=== PATIENT | female | born 1990 | race Caucasian/White ===

== ENCOUNTER → 2020-05-03 11:49 | Outpatient (BNVA) | payer MEDICAID, SELFPAY | PROVIDERS: Family Provider Nurse Practitioner Family; PCP Registered Nurse; Visit Provider Nurse Practitioner Psychiatric/Mental Health | DX: F41.1 Generalized anxiety disorder (principal); F41.0 Panic disorder [episodic paroxysmal anxiety]; F60.3 Borderline personality disorder; Z79.899 Other long term (current) drug therapy | CPT/HCPCS: 99214; 80307 ==

== ENCOUNTER 2024-10-21 20:55 | Inpatient (IN) | payer MEDICAID, SELFPAY ==
[2024-10-21 20:57] VITALS: BP 134/85; PULSE 92; RESP 18; TEMP 37; O2SAT 99; BMI 33.6
--- OUTSIDE RECORDS SUMMARY | 2024-10-21 21:01 | XMS_ITS | Encounter Summary ---
Author Organization [facility] Address [address] [place] [address] Care Team Providers Care Thread Spinner Name Role Phone Geraldo Giles MD Primary Care Provider Encounter Details Date Type Department Care Team (Latest Contact Info) Description 03/20/2005 Outpatient Historical [address] [place], [place] [phone] Fran Sapp MD [address] [place] [address] [phone] DRUG ABUSE NEC-UNSPEC (CMS/FORMERLY [facility]) (Primary Dx) Social History Tobacco Use Types Packs/Day Years Used Date Smoking Tobacco: Never Assessed Comments Unknown Sex and Gender Information Value Date Recorded Sex Assigned at Not on file Legal 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 Gender Identity Not on file Sexual Orientation Not on file documented as of this encounter Plan of Treatment Not on file documented as of this encounter Procedures Procedure Name Priority Date/Time Associated Diagnosis Comments DRUG SCREEN, URINE Routine 03/20/2005 10 :36 AM SUPERVISOR SILVERING DEPARTMENT documented in this encounter Results * DRUG SCREEN, URINE (03/20/2005 10:36 AM SUPERVISOR SILVERING DEPARTMENT) OPIATE QUAL, URINE Drug Negative Drug Negative INTERFACE SYSTEM AMPHETAMINE QUAL, URINE Drug Negative Drug Negative INTERFACE SYSTEM BARBITURATE QUAL, URINE Drug Negative Drug Negative INTERFACE SYSTEM COCAINE QUAL URINE Drug Negative Drug Negative INTERFACE SYSTEM PCP QUAL, URINE Drug Negative Drug Negative INTERFACE SYSTEM CANNABINOIDS QUAL, URINE Drug Negative Drug Negative INTERFACE SYSTEM BENZODIAZEPINE QUAL, URINE Drug Negative Drug Negative INTERFACE SYSTEM 03/20/2005 10:3 6 AM SUPERVISOR SILVERING DEPARTMENT us Historical Provider URINE ORDERABLES Final Resul t INTERFACE SYSTEM Refer to clinic/hospital department documented in this encounter Visit Diagnoses Diagnosis Other, mixed, or unspecified nondependent drug abuse, unspecified- Primary documented in this encounter Care Teams Thread Spinner Relationship Specialty Start Date End Date Geraldo Giles MD [address] [address] PCP - General Family Practice 03/22/18 documented as of this encounter
--- OUTSIDE RECORDS SUMMARY | 2024-10-21 21:01 | XMS_ITS | Encounter Summary ---
Author Organization [facility] Address [address] [place] [address] Care Team Providers Care Radioisotope Production Operator Name Role Phone Geraldo Giles MD Primary Care Provider [phone] Encounter Details Date Type Department Care Team (Latest Contact Info) Description 09/22/2004 Outpatient Historical [facility] [place] [address] [place] [address] [phone] Lourdes Guallpa, [facility] [address] [place] [address] [phone] ROUTINE PASTORAL ASSISTANT EXAMINATION (Primary Dx) Social History Tobacco Use Types Packs/Day Years Used Date Smoking Tobacco: Never Assessed Comments Unknown Sex and Gender Information Value Date Recorded Sex Assigned at Not on file 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
--- OUTSIDE RECORDS SUMMARY | 2024-10-21 21:01 | XMS_ITS | Encounter Summary ---
Author Organization [facility] Address [address] [place] [address] Care Team Providers Care School Year Nanny Name Role Phone Geraldo Giles MD Primary Care Provider Encounter Details Date Type Department Care Team (Latest Contact Info) Description 11/06/2005 Outpatient Historical [facility] Operating Room [address] [place] [address] Jack Hernandez MD [address] [address] Encounters for Unspecified Administrative Purpose (Primary Dx) Social History Tobacco Use Types Packs/Day Years Used Date Smoking Tobacco: Never Assessed Comments Unknown Sex and Gender Information Value Date Recorded Sex Assigned at Not on file Legal Sex Female 

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
--- OUTSIDE RECORDS SUMMARY | 2024-10-21 21:01 | XMS_ITS | Encounter Summary ---
Author Organization [facility] Address [address] [place] [address] Care Team Providers Care Engine Turner Name Role Phone Geraldo Giles MD Primary Care Provider [phone] Encounter Details Date Type Department Care Team (Latest Contact Info) Description 04/26/2005 Outpatient Historical [facility] [address] [place] [phone] Fran Sapp MD [address] [place] [phone] ACUTE BRONCHITIS (Primary Dx); NONINFEC GASTROENTERIT NEC Social History Tobacco Use Types Packs/Day Years Used Date Smoking Tobacco: Never Assessed Comments Unknown Sex and Gender Information Value Date Recorded Sex Assigned at Not on file 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
--- OUTSIDE RECORDS SUMMARY | 2024-10-21 21:01 | XMS_ITS | Encounter Summary ---
Author Organization [facility] Address [address] [place] [address] Care Team Providers Care Automobile Rental Representative Name Role Phone Geraldo Giles MD Primary Care Provider Encounter Details Date Type Department Care Team (Latest Contact Info) Description 04/17/2005 Outpatient Historical [facility] [address] [place] [phone] Fran Sapp MD [address] [place] [address] [phone] NONINFLAM DIS VAGINA NEC (Primary Dx); HORDEOLUM EXTERNUM Social History Tobacco Use Types Packs/Day Years Used Date Smoking Tobacco: Never Assessed Comments Unknown Sex and Gender Information Value Date Recorded Sex Assigned at Not on file Legal 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
--- OUTSIDE RECORDS SUMMARY | 2024-10-21 21:01 | XMS_ITS | Encounter Summary ---
Author Organization [facility] Address [address] [place] [address] Care Team Providers Care Television Camera Operator Name Role Phone Geraldo Giles MD Primary Care Provider Encounter Details Date Type Department Care Team (Late st Contact Info) Description 12/03/2005 Outpatient Historical [facility] General and Trauma Surgery-[address] [place] [phone] Kimani Almodovar MD [address] [phone] Follow-Up Examination, Following Unspecified Surgery (Primary Dx) Social History Tobacco Use Types Packs/Day Years Used Date Smoking Tobacco: Never Assessed Comments Unknown Sex and Gender Information Value Date Recorded Sex Assigned at Not on file Legal Sex Female 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
--- OUTSIDE RECORDS SUMMARY | 2024-10-21 21:01 | XMS_ITS | Encounter Summary ---
Author Organization [facility] Address [address] [place] [address] Care Team Providers Care Electrical Prospecting Engineer Name Role Phone Geraldo Giles MD Primary Care Provider Encounter Details Date Type Department Care Team (Latest Contact Info) Description 08/21/2004 Outpatient Historical [facility] [address] [place] [address] [phone] Fran Sapp MD [address] [place] [address] [phone] SCOLIOSIS NEC (Primary Dx); VAGINITIS NOS Social History Tobacco Use Types Packs/Day Years Used Date Smoking Tobacco: Never Assessed Comments Unknown Sex and Gender Information Value Date Recorded Sex Assigned at Not on file Legal 

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
--- OUTSIDE RECORDS SUMMARY | 2024-10-21 21:01 | XMS_ITS | Encounter Summary ---
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 Gender Identity Not on file Sexual Orientation Not on file documented as of this encounter Plan of Treatment Not on file documented as of this encounter Procedures Procedure Name Priority Date/Time Associated Diagnosis Comments URINALYSIS W/REFLEX MICROSCOPIC Routine 11/04/2005 10:09 PM CDT CBC WITH DIFFERENTIAL Routine 11/04/2005 9:35 AM CDT VITAMIN B12 LEVEL Routine 11/04/2005 9:3 5 AM CDT HEPATIC FUNCTION PANEL Routine 6 9:35 AM CDT CBC WITH DIFFERENTIAL Routine 10/31/2005 7:02 AM CDT TSH Routine 10/31/2005 7:02 AM CDT COMPREHENSIVE METABOLIC PANEL Routine 10/31/2005 7:02 AM CDT documented in this encounter Results * (ABNORMAL) URINALYSIS (11/04/2005 10:09 PM CDT) Pathologist [facility] MICRO EXAM No No INTERFACE SYSTEM COLOR UA Yellow Straw INTERFACE SYSTEM CLARITY UA Clear Clear INTERFACE SYSTEM LEUKOCYTE ESTERASE UA NEGATIVE NEGATIVE INTERFACE SYSTEM NITRITE UA NEGATIVE NEGATIVE INTERFACE SYSTEM PH UA 6.5 5.0 - 9.0 INTERFACE SYSTEM PROTEIN UA NEGATIVE NEGATIVE INTERFACE SYSTEM Comment: As of 04 positive protein results obtained on routine urinalysis will not be confirmed by sulfosalicylic acid (SSA) precipitation. Current methodology for protein detection is highly sensitive for detection of albumin; therefore, confirmation is not necessary. GLUCOSE UA NEGATIVE NEGATIVE INTERFACE SYSTEM KETONES UA NEGATIVE NEGATIVE INTERFACE SYSTEM UROBILINOGEN UA 0.2 0.2 INTE RFACE SYSTEM BILIRUBIN UA NEGATIVE NEGATIVE INTERFA CE SYSTEM BLOOD UA NEGATIVE NEGATIVE INTERFACE SYSTEM SPECIFIC GRAVITY UA >=1.030(A) 1.005 - 1.030 INTERFACE SYSTEM 11/04/2005 10:0 9 PM CDT Geraldo Cantu MD URINE ORDERABLES Final Result INTERFACE SYSTEM Refer to clinic/hospital department * (ABNORMAL) HEPATIC FUNCTION PANEL (11/04/2005 9:35 AM CDT) Pathologist [facility] TOTAL PROTEIN 7.0 6.3 - 8.2 g/dL INTERFACE SYSTEM ALBUMIN 4.0 3.5 - 5.0 g/dL INTERFACE SYSTEM ALKALINE PHOSPHATASE 792(H) 39 - 126 U/L INTERFACE SYSTEM Comment: As of 05 the [facility] has changed testing methods. The new reference range is 25-100 The old referance range was 38-126 AST 27 8 - 33 U/L INTERFACE SYSTEM Comment: As of 05 the [facility] has changed testing methods. The new reference range is 8-33 The old referance range was Males 17-59 Females 14-36 ALT 31 4 - 36 IU/L INTERFACE SYSTEM Comment: As of 05 the [facility] has changed testing methods. The new reference range is 4-36 The old referance range was Males 21-72 Females 9-52 BILIRUBIN DIRECT 0.3 0.0 - 0.4 mg/dL INTERFACE SYSTEM BILIRUBIN TOTAL 1.0 0.3 - 1.2 mg/dL INTERFACE SYSTEM Comment: As of 05 the [facility] has changed testing methods. The new reference range is 0.3-1.2 The old referance range was 0.2-1.4 11/04/2005 9:35 AM CDT Pop Hicks MD CHEMISTRY ORDERABLES Final Resu Performing Organization Address [facility] Phone Number INTERFACE SYSTEM Refer to clinic/hospital department * VITAMIN B12 (11/04/2005 9:35 AM CDT) Pathologist [facility] VITAMIN B12 640 211 - 911 pg/dL INTERFACE SYSTEM 11/04/2005 9:35 AM CDT Pop Hicks MD CHEMISTRY ORDERABLES Final Resu lt Performing Organization Address [facility] Phone Number INTERFACE SYSTEM Refer to clinic/hospital department * (ABNORMAL) CBC WITH DIFFERENTIAL (11/04/2005 9:35 AM CDT) Pathologist [facility] WBC 7.0 4.5 - 13.5 K/ul INTERFACE SYSTEM RBC 3.87(L) 4.30 - 5.30 Mil/ul INTERFACE SYSTEM HEMOGLOBIN 11.5(L) 12.0 - 16.0 g/dL INTERFACE SYSTEM HEMATOCRIT 36.1 36.0 - 46.0 % INTERFACE SYSTEM MCV 93.3 78.0 - 102.0 Fl INTERFACE SYSTEM MCH 29.7 26.0 - 32.0 pg INTERFACE SYSTEM MCHC 31.9(L) 33.0 - 35.0 g/dL INTERFACE SYSTEM RDW 16.3(H) 11.0 - 14.5 % INTERFACE SYSTEM PLATELETS 648(H) 140 - 440 K/ul INTERFACE SYSTEM MPV 9.1 8.9 - 12.8 Fl INTERFACE SYSTEM NEUTROPHILS 58.6 42.2 - 75.2 % INTERFACE SYSTEM LYMPHOCYTES 31.9 24.0 - 44.0 % INTERFACE SYSTEM MONOCYTES 8.0(H) 4.0 - 5.0 % INTERFACE SYSTEM EOSINOPHILS 1.1 0.0 - 7.0 % INTERFACE SYSTEM BASOPHILS 0.4 0.0 - 1.0 % INTERFACE SYSTEM NEUTROPHIL ABSOLUTE 4.1 2.0 - 8.0 K/uL INTERFACE SYSTEM LYMPHOCYTE ABSOLUTE 2.2 1.2 - 4.0 K/ul INTERFACE SYSTEM MONOCYTE ABSOLUTE 0.6 0.1 - 0.6 K/ul INTERFACE SYSTEM EOSINOPHIL ABSOLUTE 0.1 0.0 - 0.7 K/ul INTERFACE SYSTEM BASOPHILS ABSOLUTE 0.0 0.0 - 0.2 K/ul INTERFACE SYSTEM 11/04/2005 9:35 AM CDT us Pop Hicks MD HEMATOLOGY ORDERABLES Final Res ult Performing Organization Address [facility] de Phone Number INTERFACE SYSTEM Refer to clinic/hospital department * TSH (10/31/2005 7:02 AM CDT) TSH 1.230 0.350 - 5.500 uIU/ml INTERFACE SYSTEM Comment: As of 04 at 3:00 p.m. [facility] has changed the methodology for TSH, and with this change the reference range has changed from 0.49-4.67 to 0.35-5.5 uIU/ml. 10/31/2005 7:02 AM CDT us Pop Hicks MD CHEMISTRY ORDERABLES Final Resu lt Performing Organization Address [facility] Phone Number INTERFACE SYSTEM Refer to clinic/hospital department * (ABNORMAL) COMPREHENSIVE METABOLIC PANEL (10/31/2005 7:02 AM CDT) GLUCOSE 100 70 - 110 mg/dL INTERFACE SYSTEM BUN 12 7 - 17 mg/dL INTERFACE SYSTEM CREATININE 0.6(L) 0.7 - 1.2 mg/dL INTERFACE SYSTEM SODIUM 139 136 - 145 mEq/L INTERFACE SYSTEM POTASSIUM 3.4(L) 3.5 - 5.0 mEq/L INTERFACE SYSTEM CHLORIDE 107 95 - 110 mEq/L INTERFACE SYSTEM CO2 21(L) 22 - 32 mmol/l INTERFACE SYSTEM ANION GAP 14 9 - 20 mEq/L INTERFACE SYSTEM OSMOLALITY, CALCULATED 285 275 - 295 mOsm/Kg INTERFACE SYSTEM CALCIUM 8.9 8.4 - 10.5 mg/dL INTERFACE SYSTEM TOTAL PROTEIN 6.4 6.3 - 8.2 g/dL INTERFACE SYSTEM ALBUMIN 3.6 3.5 - 5.0 g/dL INTERFACE SYSTEM GLOBULIN (CALC) 2.8 2.4 - 3.9 g/dL INTERFACE SYSTEM ALBUMIN/GLOBULIN RATIO 1.3 1.0 - 2.3 INTERFACE SYSTEM ALKALINE PHOSPHATASE 343(H) 39 - 126 U/L INTERFACE SYSTEM Comment: As of 05 the [facility] has changed testing methods. The new reference range is 25-100 The old referance range was 38-126 AST 26 8 - 33 U/L INTERFACE SYSTEM Comment: As of 05 the [facility] has changed testing methods. The new reference range is 8-33 The old referance range was Males 17-59 Females 14-36 ALT 39(H) 4 - 36 IU/L INTERFACE SYSTEM Comment: As of 05 the [facility] has changed testing methods. The new reference range is 4-36 The old referance range was Males 21-72 Females 9-52 BILIRUBIN TOTAL 1.1 0.3 - 1.2 mg/dL INTERFACE SYSTEM Comment: As of 05 the [facility] has changed testing methods. The new reference range is 0.3-1.2 The old referance range was 0.2-1.4 10/31/2005 7:02 AM CDT us Pop Hicks MD CHEMISTRY ORDERABLES Final Resu lt INTERFACE SYSTEM Refer to clinic/hospital department * (ABNORMAL) CBC WITH DIFFERENTIAL (10/31/2005 7:02 AM CDT) WBC 12.1 4.5 - 13.5 K/ul INTERFACE SYSTEM RBC 3.57(L) 4.30 - 5.30 Mil/ul INTERFACE SYSTEM HEMOGLOBIN 10.4(L) 12.0 - 16.0 g/dL INTERFACE SYSTEM HEMATOCRIT 32.9(L) 36.0 - 46.0 % INTERFACE SYSTEM MCV 92.2 78.0 - 102.0 Fl INTERFACE SYSTEM MCH 29.1 26.0 - 32.0 pg INTERFACE SYSTEM MCHC 31.6(L) 33.0 - 35.0 g/dL INTERFACE SYSTEM RDW 16.1(H) 11.0 - 14.5 % INTERFACE SYSTEM PLATELETS 697(H) 140 - 440 K/ul INTERFACE SYSTEM MPV 9.5 8.9 - 12.8 Fl INTERFACE SYSTEM NEUTROPHILS 65.5 42.2 - 75.2 % INTERFACE SYSTEM LYMPHOCYTES 25.1 24.0 - 44.0 % INTERFACE SYSTEM MONOCYTES 7.6(H) 4.0 - 5.0 % INTERFAC E SYSTEM EOSINOPHILS 1.6 0.0 - 7.0 % INTERF FLY SYSTEM BASOPHILS 0.2 0.0 - 1.0 % INTERFAC E SYSTEM NEUTROPHIL ABSOLUTE 7.9 2.0 - 8.0 K/uL INTERFACE SYSTEM LYMPHOCYTE ABSOLUTE 3.0 1.2 - 4.0 K/ul INTERFACE SYSTEM MONOCYTE ABSOLUTE 0.9(H) 0.1 - 0.6 K/ul INTERFACE SYSTEM EOSINOPHIL ABSOLUTE 0.2 0.0 - 0.7 K/ul INTERFACE SYSTEM BASOPHILS ABSOLUTE 0.0 0.0 - 0.2 K/ul INTERFACE SYSTEM PERIPHERAL BLOOD SMEAR REVIEW Smear Reviewed Automated Diff INTERFACE SYSTEM 10/31/2005 7:02 AM CDT us Pop Hicks MD HEMATOLOGY ORDERABLES Final Res ult INTERFACE SYSTEM Refer to clinic/hospital department documented in this encounter Visit Diagnoses Diagnosis Other specified rehabilitation procedure(V57.89)- Primary Other specified rehabilitation procedure documented in this encounter Care Teams Yoker Relationship Specialty Start Date End Date Geraldo Giles MD [address] [place] [phone] PCP - General Family Practice 03/22/18 documented as of this encounter
--- OUTSIDE RECORDS SUMMARY | 2024-10-21 21:01 | XMS_ITS | Encounter Summary ---
Author Organization [facility] Address [address] [place] [address] Care Team Providers Care Communications Tower Technician Name Role Phone Geraldo Giles MD Primary Care Provider Encounter Details Date Type Department Care Team (Latest Contact Info) Description 11/09/2005 Outpatient Historical [facility] [address] 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
--- OUTSIDE RECORDS SUMMARY | 2024-10-21 21:01 | XMS_ITS | Encounter Summary ---
Author Organization [facility] Address [address] [place] [address] Care Team Providers Care Song Writer Name Role Phone Geraldo Giles MD Primary Care Provider Encounter Details Date Type Department Care Team (Latest Contact Info) Description 04/17/2005 Outpatient Historical [facility] [address], [place] [phone] Fran Sapp MD [address] [place] [address] [phone] DRUG ABUSE NEC-UNSPEC (CMS/[facility]) (Primary Dx) Social History Tobacco Use Types Packs/Day Years Used Date Smoking Tobacco: Never Assessed Comments Unknown Sex and Gender Information Value Date Recorded Sex Assigned at Not on file Legal Sex Female 4:44 AM STONEWORKER Gender Identity Not on file Sexual Orientation Not on file documented as of this encounter Plan of Treatment Not on file documented as of this encounter Procedures Procedure Name Priority Date/Time Associated Diagnosis Comments DRUG SCREEN, URINE Routine 04/17/2005 1: 14 PM STONEWORKER documented in this encounter Results * DRUG SCREEN, URINE (04/17/2005 1:14 PM STONEWORKER) OPIATE QUAL, URINE Drug Negative Drug Negative INTERFACE SYSTEM AMPHETAMINE QUAL, URINE Drug Negative Drug Negative INTERFACE SYSTEM BARBITURATE QUAL, URINE Drug Negative Drug Negative INTERFACE SYSTEM COCAINE QUAL URINE Drug Negative Drug Negative INTERFACE SYSTEM PCP QUAL, URINE Drug Negative Drug Negative INTERFACE SYSTEM CANNABINOIDS QUAL, URINE Drug Negative Drug Negative INTERFACE SYSTEM BENZODIAZEPINE QUAL, URINE Drug Negative Drug Negative INTERFACE SYSTEM 04/17/2005 1:14 PM STONEWORKER us Historical Provider URINE ORDERABLES Final Resul t INTERFACE SYSTEM Refer to clinic/hospital department documented in this encounter Visit Diagnoses Diagnosis Other, mixed, or unspecified nondependent drug abuse, unspecified- Primary documented in this encounter Care Teams Song Writer Relationship Specialty Start Date End Date Geraldo Giles MD [address] [address] PCP - General Family Practice 03/22/18 documented as of this encounter
--- OUTSIDE RECORDS SUMMARY | 2024-10-21 21:01 | XMS_ITS | Encounter Summary ---
Author Organization [facility] Address [address] [place] [address] Care Team Providers Care Fur Trapper Name Role Phone Geraldo Giles MD Primary Care Provider Encounter Details Date Type Department Care Team (Late st Contact Info) Description 12/04/2005 Outpatient Historical [facility] [place] [address] Dante Felton MD [address] [place], [place] [id number] Closed Fracture of Shaft of Femur (CMS/HCC) (Primary Dx) Social History Tobacco Use Types Packs/Day Years Used Date Smoking Tobacco: Never Assessed Comments Unknown Sex and Gender Information Value Date Recorded Sex Assigned at Not on file Legal Sex Female 4:44 AM VETERINARY TECHNOLOGY INSTRUCTOR Gender Identity Not on file Sexual Orientation Not on file documented as of this encounter Plan of Treatment Not on file documented as of this encounter Visit Diagnoses Diagnosis Closed fracture of shaft of femur (CMS/HCC)- Primary Closed fracture of shaft of femur documented in this encounter Care Teams Fur Trapper Relationship Specialty Start Date End Date Geraldo Giles MD [address] [place] [address] PCP - General Family Practice 03/22/18 documented as of this encounter
--- OUTSIDE RECORDS SUMMARY | 2024-10-21 21:01 | XMS_ITS | Encounter Summary ---
Author Organization [facility] Address [address] [place] [address] Care Team Providers Care Automotive Electrician Helper Name Role Phone Geraldo Giles MD Primary Care Provider Encounter Details Date Type Department Care Team (Late st Contact Info) Description 12/10/2005 Outpatient Historical [facility] [address] [place] [address] Jack Hernandez MD [address] [phone] Social History Tobacco Use Types Packs/Day Years Used Date Smoking Tobacco: Never Assessed Comments Unknown Sex and Gender Information Value Date Recorded Sex Assigned at Not on file Legal Sex Female 4:44 AM TIN POT OPERATOR Gender Identity Not on file Sexual Orientation Not on file documented as of this encounter Plan of Treatment Not on file documented as of this encounter Visit Diagnoses Not on filedocumented in this encounter Care Teams Automotive Electrician Helper Relationship Specialty Start Date End Date Geraldo Giles MD [address] [place] [address] PCP - General Family Practice 03/22/18 documented as of this encounter
--- OUTSIDE RECORDS SUMMARY | 2024-10-21 21:01 | XMS_ITS | Encounter Summary ---
Author Organization [facility] Address [address] [place] [address] Care Team Providers Care Cyber Incident Handler Name Role Phone Geraldo Giles MD Primary Care Provider Encounter Details Date Type Department Care Team (Latest Contact Info) Description 09/26/2004 Outpatient Historical [facility] [address] [place] [address] [phone] Fran Sapp MD [address] [place] [address] [phone] VAGINITIS NOS (Primary Dx); OTHER MALAISE AND FATIGUE; DYSTHYMIC DISORDER Social History Tobacco Use Types Packs/Day Years Used Date Smoking Tobacco: Never Assessed Comments Unknown Sex and Gender Information Value Date Recorded Sex Assigned at Not on file Legal Sex Female 4:44 AM RIVETER HELPER Gender Identity Not on file Sexual Orientation Not on file documented as of this encounter Plan of Treatment Not on file documented as of this encounter Visit Diagnoses Diagnosis Vaginitis and vulvovaginitis, unspecified- Primary Other malaise and fatigue Dysthymic disorder documented in this encounter Care Teams Cyber Incident Handler Relationship Specialty Start Date End Date Geraldo Giles MD [address] [place] [address] [phone] PCP - General Family Practice 03/22/18 documented as of this encounter
--- OUTSIDE RECORDS SUMMARY | 2024-10-21 21:01 | XMS_ITS | Encounter Summary ---
Author Organization [facility] Address [address] [place] [address] Care Team Providers Care Office Machine Servicer Apprentice Name Role Phone Geraldo Giles MD Primary Care Provider Encounter Details Date Type Department Care Team (Latest Contact Info) Description 11/28/2005 Outpatient Historical [facility] [address] [place] [address] [phone] Fran Sapp MD [address] [place] [address] [phone] Cellulitis and Abscess of Unspecified Site (Primary Dx); Unspecified Voice Disturbance; Unspecified Alopecia Social History Tobacco Use Types Packs/Day Years Used Date Smoking Tobacco: Never Assessed Comments Unknown Sex and Gender Information Value Date Recorded Sex Assigned at Not on file Legal Sex Female 4:44 AM DIRECT SUPPORT PROFESSIONAL Gender Identity Not on file Sexual Orientation Not on file documented as of this encounter Plan of Treatment Not on file documented as of this encounter Visit Diagnoses Diagnosis Cellulitis and abscess of unspecified site- Primary Voice and resonance disorder, unspecified Alopecia, unspecified documented in this encounter Care Teams Office Machine Servicer Apprentice Relationship Specialty Start Date End Date Geraldo Giles MD [address] [place] [address] [phone] PCP - General Family Practice 03/22/18 documented as of this encounter
--- OUTSIDE RECORDS SUMMARY | 2024-10-21 21:01 | XMS_ITS | Encounter Summary ---
Author Organization [facility] Address [address] [place] [address] Care Team Providers Care Certified Medication Technician Name Role Phone Geraldo Giles MD Primary Care Provider Encounter Details Date Type Department Care Team (Latest Contact Info) Description 09/22/2004 Outpatient Historical [facility] [place] [address] [place] [phone] Lourdes Guallpa, [facility] [address] [place] [address] [phone] NONINFECT VAG LEUKORRHEA (Primary Dx); CONTRACEPTIVE MANGMT NEC Social History Tobacco Use Types Packs/Day Years Used Date Smoking Tobacco: Never Assessed Comments Unknown Sex and Gender Information Value Date Recorded Sex Assigned at Not on file Legal Sex Female 4:44 AM MACHINE BILLER Gender Identity Not on file Sexual Orientation Not on file documented as of this encounter Plan of Treatment Not on file documented as of this encounter Visit Diagnoses Diagnosis Leukorrhea, not specified as infective- Primary Other general counseling and advice for contraceptive management documented in this encounter Care Teams Certified Medication Technician Relationship Specialty Start Date End Date Geraldo Giles MD [address] [place] [phone] PCP - General Family Practice 03/22/18 documented as of this encounter
--- OUTSIDE RECORDS SUMMARY | 2024-10-21 21:01 | XMS_ITS | Encounter Summary ---
Author Organization [facility] Address [address] [place] [address] Care Team Providers Care Press Tender Incendiary Grenade Name Role Phone Geraldo Giles MD Primary Care Provider [phone] Encounter Details Date Type Department Care Team (Latest Contact Info) Description 03/20/2005 Outpatient Historical [facility] [address] [place] [phone] Fran Sapp MD [address] [place] [address] [phone] DRUG ABUSE NEC-CONTIN (Primary Dx) Social History Tobacco Use Types Packs/Day Years Used Date Smoking Tobacco: Never Assessed Comments Unknown Sex and Gender Information Value Date Recorded Sex Assigned at Not on file Legal Sex Female 4:44 AM DISHWASHER Gender Identity Not on file Sexual Orientation Not on file documented as of this encounter Plan of Treatment Not on file documented as of this encounter Visit Diagnoses Diagnosis Other, mixed, or unspecified nondependent drug abuse, continuous- Primary documented in this encounter Care Teams Press Tender Incendiary Grenade Relationship Specialty Start Date End Date Geraldo Giles MD [address] [place] [phone] PCP - General Family Practice 03/22/18 documented as of this encounter
--- OUTSIDE RECORDS SUMMARY | 2024-10-21 21:01 | XMS_ITS | Encounter Summary ---
Author Organization [facility] Address [address] [place] [address] Care Team Providers Care Hiv/Aids Care Nurse Name Role Phone Racheal Osborne MD Primary Care Provider [phone] Encounter Details Date Type Department Care Team (Late st Contact Info) Description 10/20/2024 External Device Data [facility] ABSTRACTION Provider, Abstract NO ADDRESS ON FILE Social History Tobacco Use Types Packs/Day Years Used Date Smoking Tobacco: Former Cigarettes 0.5 20.9 S tarted: 11/15/2003 Passive Smoke Exposure: Current Smokeless Tobacco: Never Comments:Quit smoking: has q uit in the past. Alcohol Use Standard Drinks/Week Comments No 0 (1 standard drink = 0.6 oz pur e alcohol) Comments No Sex and Gender Information Value Date Recorded Sex Assigned at Female 01/07/2023 6:57 PM CASE MANAGEMENT DIRECTOR Legal Sex Female 4:44 AM CASE MANAGEMENT DIRECTOR Gender Identity Female 01/07/2023 6:57 PM CASE MANAGEMENT DIRECTOR Sexual Orientation Straight 01/07/2023 6: 57 PM CASE MANAGEMENT DIRECTOR documented as of this encounter Plan of Treatment Upcoming Encounters Date Type Department Care Team (Late st Contact Info) Description 11/25/2024 4:30 PM CDT Appointment [facility] [address] [place] [address] [place] [address] Andrea Desir MD [address] [place] [address] 12/01/2024 12:15 PM CDT Office Visit [facility] Neurology [facility] [address] [place] [address] Sonia Boles MD [address] [place] [address] 12/11/2024 1:00 PM CDT Office Visit [facility] Neurosurgery [address] [place] [address] Andrea Desir MD [address] [place] [address] 01/21/2025 3:20 PM CASE MANAGEMENT DIRECTOR Office Visit [facility] Family [facility] [address] [phone] Racheal Osborne MD [address] [phone] documented as of this encounter Visit Diagnoses Not on filedocumented in this encounter Care Teams Hiv/Aids Care Nurse Relationship Specialty Start Date End Date Racheal Osborne MD [address] [phone] PCP - General Family Practice 08/12/23 documented as of this encounter
--- OUTSIDE RECORDS SUMMARY | 2024-10-21 21:02 | XMS_ITS | Encounter Summary ---
Author Organization [facility] Address [address] [place] [address] Care Team Providers Care Sheep Rancher Name Role Phone Geraldo Giles MD Primary Care Provider Encounter Details Date Type Department Care Team (Latest Contact Info) Description 10/11/2006 Outpatient Historical [facility] Medicine [place] [address] [place] [phone] Lourdes Guallpa, [facility] [address] [place] [address] [phone] Routine Medical Exam (Primary Dx) Social History Tobacco Use Types Packs/Day Years Used Date Smoking Tobacco: Never Assessed Comments Unknown Sex and Gender Information Value Date Recorded Sex Assigned at Not on file Legal Sex Female 4:44 AM AUTOMATED LOGISTICS SPECIALIST Gender Identity Not on file Sexual Orientation Not on file documented as of this encounter Plan of Treatment Not on file documented as of this encounter Visit Diagnoses Diagnosis Routine medical exam- Primary Routine general medical examination at a health care facility documented in this encounter Care Teams Sheep Rancher Relationship Specialty Start Date End Date Geraldo Giles MD [address] [place] [phone] PCP - General Family Practice 03/22/18 documented as of this encounter
--- OUTSIDE RECORDS SUMMARY | 2024-10-21 21:02 | XMS_ITS | Encounter Summary ---
Author Organization [facility] Address [address] [place] [address] Care Team Providers Care Assembler Fitter Name Role Phone Geraldo Giles MD Primary Care Provider [phone] Encounter Details Date Type Department Care Team (Late st Contact Info) Description 03/06/2007 Outpatient Historical [facility] Medicine [place] [address] [place] [address] [phone] Lourdes Guallpa, [facility] [address] [place] [phone] Social History Tobacco Use Types Packs/Day Years Used Date Smoking Tobacco: Never Assessed Comments Unknown Sex and Gender Information Value Date Recorded Sex Assigned at Not on file Legal Sex Female 4:44 AM FORM SETTER METAL [address] FORMS Gender Identity Not on file Sexual Orientation Not on file documented as of this encounter Plan of Treatment Not on file documented as of this encounter Visit Diagnoses Not on filedocumented in this encounter Care Teams Assembler Fitter Relationship Specialty Start Date End Date Geraldo Giles MD [address] [place] [address] [phone] PCP - General Family Practice 03/22/18 documented as of this encounter
--- OUTSIDE RECORDS SUMMARY | 2024-10-21 21:02 | XMS_ITS | Encounter Summary ---
Author Organization [facility] Address [address] [place] [address] Care Team Providers Care Business Communications Instructor Name Role Phone Geraldo Giles MD Primary Care Provider [phone] Encounter Details Date Type Department Care Team (Latest Contact Info) Description 05/08/2006 Outpatient Historical [facility] General and Trauma Surgery-[address] [place] [address] Horace Mckeon Jr., MD [address] [place] [address] [address] [place] [address] Late Eff Open Wnd Extrem (Primary Dx); Keloid Scar Social History Tobacco Use Types Packs/Day Years Used Date Smoking Tobacco: Never Assessed Comments Unknown Sex and Gender Information Value Date Recorded Sex Assigned at Not on file Legal Sex Female 4:44 AM DYNAMOTOR REPAIRER Gender Identity Not on file Sexual Orientation Not on file documented as of this encounter Plan of Treatment Not on file documented as of this encounter Visit Diagnoses Diagnosis Late effect of open wound of extremities without mention of tendon injury- Primary Keloid scar documented in this encounter Care Teams Business Communications Instructor Relationship Specialty Start Date End Date Geraldo Giles MD [address] [place] [phone] PCP - General Family Practice 03/22/18 documented as of this encounter
--- OUTSIDE RECORDS SUMMARY | 2024-10-21 21:02 | XMS_ITS | Encounter Summary ---
Author Organization [facility] Address [address] [place] [address] Care Team Providers Care Ship Purser Name Role Phone Geraldo Giles MD Primary Care Provider Encounter Details Date Type Department Care Team (Late st Contact Info) Description 06/03/2006 Outpatient [facility] [address] [place] [address] AMBULANCE, [facility] Encounter for Other Specified Aftercare (Primary Dx) Social History Tobacco Use Types Packs/Day Years Used Date Smoking Tobacco: Never Assessed Comments Unknown Sex and Gender Information Value Date Recorded Sex Assigned at Not on file Legal Sex Female 4:44 AM HAUL DRIVER Gender Identity Not on file Sexual Orientation Not on file documented as of this encounter Plan of Treatment Not on file documented as of this encounter Visit Diagnoses Diagnosis Encounter for other specified aftercare- Primary documented in this encounter Care Teams Ship Purser Relationship Specialty Start Date End Date Geraldo Giles MD [address] [address] PCP - General Family Practice 03/22/18 documented as of this encounter
--- OUTSIDE RECORDS SUMMARY | 2024-10-21 21:02 | XMS_ITS | Encounter Summary ---
Author Organization [facility] Address [address] [place] [address] Care Team Providers Care Senior Relationship Manager Name Role Phone Geraldo Giles MD Primary Care Provider [phone] Encounter Details Date Type Department Care Team (Latest Contact Info) Description 08/27/2006 Outpatient Historical [facility] General and Trauma Surgery-[address] [place] [address] Nicolás Bravo S, DO [address] [place] [address] Late Eff Open Wnd Extrem (Primary Dx); Unspecified Backache Social History Tobacco Use Types Packs/Day Years Used Date Smoking Tobacco: Never Assessed Comments Unknown Sex and Gender Information Value Date Recorded Sex Assigned at Not on file Legal Sex Female 4:44 AM STAFF RN Gender Identity Not on file Sexual Orientation Not on file documented as of this encounter Plan of Treatment Not on file documented as of this encounter Visit Diagnoses Diagnosis Late effect of open wound of extremities without mention of tendon injury- Primary Backache, unspecified documented in this encounter Care Teams Senior Relationship Manager Relationship Specialty Start Date End Date Geraldo Giles MD [address] [place] [address] PCP - General Family Practice 03/22/18 documented as of this encounter
--- OUTSIDE RECORDS SUMMARY | 2024-10-21 21:02 | XMS_ITS | Encounter Summary ---
Author Organization [facility] Address [address] [place] [address] Care Team Providers Care Improvement Leader Name Role Phone Geraldo Giles MD Primary Care Provider [phone] Encounter Details Date Type Department Care Team (Latest Contact Info) Description 12/19/2006 Outpatient Historical [facility] Medicine [place] [address] [place] [address] [phone] Lourdes Guallpa, [facility] [address] [place] [address] [phone] Diarrhea (Primary Dx); Other Malaise and Fatigue Social History Tobacco Use Types Packs/Day Years Used Date Smoking Tobacco: Never Assessed Comments Unknown Sex and Gender Information Value Date Recorded Sex Assigned at Not on file Legal Sex Female 4:44 AM BUZZSAW OPERATOR Gender Identity Not on file Sexual Orientation Not on file documented as of this encounter Plan of Treatment Not on file documented as of this encounter Visit Diagnoses Diagnosis Diarrhea- Primary Other malaise and fatigue documented in this encounter Care Teams Improvement Leader Relationship Specialty Start Date End Date Geraldo Giles MD [address] [place] [address] [phone] PCP - General Family Practice 03/22/18 documented as of this encounter
--- OUTSIDE RECORDS SUMMARY | 2024-10-21 21:02 | XMS_ITS | Encounter Summary ---
Author Organization [facility] Address [address] [place] [address] Care Team Providers Care Acid Tank Cleaner Name Role Phone Geraldo Giles MD Primary Care Provider Encounter Details Date Type Department Care Team (Latest Contact Info) Description 02/15/2006 Outpatient Historical [facility] [place] [address] [place] [address] [phone] Fran Sapp MD [address] [place] [address] [phone] Other Malaise and Fatigue (Primary Dx) Social History Tobacco Use Types Packs/Day Years Used Date Smoking Tobacco: Never Assessed Comments Unknown Sex and Gender Information Value Date Recorded Sex Assigned at Not on file Legal Sex Female 4:44 AM SONOGRAPHY TECHNICIAN Gender Identity Not on file Sexual Orientation Not on file documented as of this encounter Plan of Treatment Not on file documented as of this encounter Visit Diagnoses Diagnosis Other malaise and fatigue- Primary documented in this encounter Care Teams Acid Tank Cleaner Relationship Specialty Start Date End Date Geraldo Giles MD [address] [place] [address] [phone] PCP - General Family Practice 03/22/18 documented as of this encounter
--- OUTSIDE RECORDS SUMMARY | 2024-10-21 21:02 | XMS_ITS | Encounter Summary ---
Author Organization [facility] Address [address] [place] [address] Care Team Providers Care Seismograph Helper Name Role Phone Geraldo Giles MD Primary Care Provider [phone] Encounter Details Date Type Department Care Team (Latest Contact Info) Description 06/25/2003 Outpatient Historical [address] [phone] Suzan Francis MD [address] [place] [phone] Venereal disease contact (Primary Dx); Excessive menstruation Social History Tobacco Use Types Packs/Day Years Used Date Smoking Tobacco: Never Assessed Comments Unknown Sex and Gender Information Value Date Recorded Sex Assigned at Not on file Legal Sex Female 4:44 AM MACHINE SETTER SHEET METAL Gender Identity Not on file Sexual Orientation Not on file documented as of this encounter Plan of Treatment Not on file documented as of this encounter Visit Diagnoses Diagnosis Venereal disease contact- Primary Contact with or exposure to venereal diseases Excessive menstruation Excessive or frequent menstruation documented in this encounter Care Teams Seismograph Helper Relationship Specialty Start Date End Date Geraldo Giles MD [address] [phone] PCP - General Family Practice 03/22/18 documented as of this encounter
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
--- OUTSIDE RECORDS SUMMARY | 2024-10-21 21:02 | XMS_ITS | Encounter Summary ---
Author Organization [facility] Address [address] [place] [address] Care Team Providers Care Payroll And Benefits Coordinator Name Role Phone Grealdo Giles MD Primary Care Provider Encounter Details Date Type Department Care Team (Late st Contact Info) Description [facility] [address] [place] [address] Jack Hernandez MD [address] [address] Social History Tobacco Use Types Packs/Day Years Used Date Smoking Tobacco: Never Assessed Comments Unknown Sex and Gender Information Value Date Recorded Sex Assigned at Not on file 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
--- OUTSIDE RECORDS SUMMARY | 2024-10-21 21:02 | XMS_ITS | Encounter Summary ---
Author Organization [facility] Address [address] [place] [address] Care Team Providers Care Non Destructive Testing Specialist Name Role Phone Geraldo Giles MD Primary Care Provider Encounter Details Date Type Department Care Team (Latest Contact Info) Description 02/12/2006 Outpatient Historical [facility] [address] [place] [phone] Fran Sapp MD [address] [place] [phone] Urinary Tract Infection, Site not Specified (Primary Dx) Social History Tobacco Use Types Packs/Day Years Used Date Smoking Tobacco: Never Assessed Comments Unknown Sex and Gender Information Value Date Recorded Sex Assigned at Not on file 

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
--- OUTSIDE RECORDS SUMMARY | 2024-10-21 21:02 | XMS_ITS | Encounter Summary ---
Author Organization [facility] Address [address] [place] [address] Care Team Providers Care Turning Sander Tender Name Role Phone Geraldo Giles MD Primary Care Provider [phone] Encounter Details Date Type Department Care Team (Latest Contact Info) Description 02/07/2006 Outpatient Historical [facility] General and Trauma Surgery-[address] [place] [address] Peter Carr MD [address] [place] [phone] Follow-Up Examination, Following Unspecified Surgery (Primary Dx) Social History Tobacco Use Types Packs/Day Years Used Date Smoking Tobacco: Never Assessed Comments Unknown Sex and Gender Information Value Date Recorded Sex Assigned at Not on file Legal 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
--- OUTSIDE RECORDS SUMMARY | 2024-10-21 21:02 | XMS_ITS | Clinical Summary ---
Author Organization [facility] Address [address] [place] [address] Care Team Providers Care Sole Layer Hand Name Role Phone Geraldo Giles MD Primary Care Provider [phone] Allergies No known active allergies Medications vit-iron fumarate-fa (KM ) 28 mg iron- 800 mcg Tablet Take 1 Tablet by mouth daily. Active clonazePAM (KlonoPIN) 0.5 mg Tablet Take 0.5 mg by mouth 3 times daily as needed for Anxiety (anxiety). Active FLUoxetine (PROzac) 40 mg capsuleIndicati ons:Bipolar disorder, current episode mixed, moderate (CMS/HCC) Take 1 Capsule (40 mg) by mouth daily. 90 Capsule 09/30/2018 Active Hospital, Clinic, or Other Facility Administered Medication Ordered Dose Route Frequency Start Date End Date Status medroxyPROGESTERone (DEPO-PROVERA) injection 150 mgIndications:Contracepti ve management 150 mg IM EVERY 90 DAYS 12/16/2012 Active Active Problems Problem Noted Date Diagnosed Date Elevated BP without diagnosis of hypertension Bilateral knee pain 06/17/2013 Fatigue 12/16/2012 Supervision of normal 04/16/2008 GERD (gastroesophageal reflux disease) 9 Bipolar affective 01/09/2008 Ectopic Overview (12/16/2012): Twice on left side. Second time required tube to be removed. 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 12/16/2012 Immunizations Immunization Administration Dates Next Due (ADACEL/BOOSTRIX)(10 YR UP) TDAP VACCINE, 0.5ML, IM 11/26/2006 Influenza Vaccine Split 3+ Yrs IM VFC 01/03/2009 Family History Medical History Relation Name Comments Healthy Father Cancer Maternal Grandfather Diabetes Maternal Grandfather Heart Disease Maternal Grandfather Stroke Maternal Grandfather Arthritis-osteo Maternal Grandmother Cancer Maternal Grandmother Heart Disease Maternal Grandmother Hypertension Maternal Grandmother Stroke Maternal Grandmother Thyroid Disease Maternal Grandmother Asthma Mother Diabetes Mother Hypertension Mother Breast Cancer Other Aunt High Cholesterol Other Aunt Hypertension Other Aunt Cancer Paternal Grandmother Diabetes Paternal Grandmother Hypertension Paternal Grandmother Healthy Son 1 Healthy Son 2 Healthy Son 3 Relation Name Status Comments Father Alive Maternal Grandfather Maternal Grandmother Alive Mother Alive Other Aunt Alive Paternal Grandfather Paternal Grandmother Son 1 Alive Son 2 Alive Son 3 Alive Social History Tobacco Use Types Packs/Day Years Used Date Smoking Tobacco: Every Day Cigarettes 0.3 10 Smokeless Tobacco: Never Tobacco Cessation:Ready to Q uit: No; Counseling Given: Yes Comments:has quit in the past. Alcohol Use Standard Drinks/Week Comments No 0 (1 standard drink = 0.6 oz pur e alcohol) social drinker Comments No Sex and Gender Information Value Date Recorded Sex Assigned at Not on file Legal Sex Female 4:44 AM SYRUP MIXER Gender Identity Not on file Sexual Orientation Not on file Occupation Industry Job Start Date Job End Date Not on file Not on file Not on file Not on file Last Filed Vital Signs Vital Sign Reading Time Taken Comments Blood Pressure 110/70 09/30/2018 11:10 AM CDT Pulse 72 09/30/2018 11:10 AM CDT Temperature 36.7 C (98 F) 09/30/2018 11:10 AM CDT Respiratory Rate 16 09/30/2018 11:10 AM CDT Oxygen Saturation 97% 09/30/2018 11:10 AM CDT Inhaled Oxygen Concentration - - Weight 99.9 kg (220 lb 3.2 oz) 09/30/2018 11:10 AM CDT Height 160 cm (5' 3 ) 09/30/2018 11:10 AM CDT Body Mass Index 39.01 09/30/2018 11:10 AM CDT Plan of Treatment Health Maintenance Due Date Last Done Comments HPV VACCINES (1 - 3-dose series) 2005 HEPATITIS B VACCINES (1 of 3 - 19+ 3-dose series) 2009 DTAP/TDAP/TD VACCINES (2 - T d or Tdap) 11/26/2016 11/26/2006 PAP SMEAR 03/05/2021 03/05/2018, 02/01, 12/16/2012, Additional history exists CERVICAL CANCER SCREENING 03/05/2023 HPV/Cotest (21-29) 03/05/2023 03/05/2018, 1 04/21/2013, 12/16/2012 HPV/Cotest (30-65) 03/05/2023 03/05/2018, 1 04/21/2013, 12/16/2012 Preventative Visit-Managed Medicaid 05/27/2024 05/27/2023, 04/11/2023, 12/07/2008, Additional history exists INFLUENZA VACCINE (#1) 2024 05/14/2018, 2008 Procedures Procedure Name Priority Date/Time Associated Diagnosis Comments CERV/VAG CYTO SCREEN PAP RLFX HPV Routine 03/05/2018 1:03 PM SYRUP MIXER Encounter for supervision of other normal in second trimester from Last 3 Months or Most Recently Relevant to Health Maintenance Results * CERV/VAG CYTO SCREEN PAP RLFX HPV (03/05/2018 1:03 PM SYRUP MIXER) CLINICAL INFORMATION 03/10/2018 10:43 AM SYRUP MIXER [facility] LAST MENSTRUAL PERIOD Information not provided 03/10/2018 10:43 AM SYRUP MIXER [facility] PREV PAP: Information not provided 03/10/2018 10:43 AM SYRUP MIXER [facility] PREV BX: Information not provided 03/10/2018 10:43 AM SYRUP MIXER [facility] SOURCE Endocervix 03/10/2018 10:43 AM SYRUP MIXER [facility] ADEQUACY: SEE COMMENT 03/10/2018 10:43 AM SYRUP MIXER [facility] Comment: Satisfactory for evaluation. Endocervical/transformation zone component present. PAP INTERP Negative for intraepithelial lesion or malignancy. 03/10/2018 10:43 AM SYRUP MIXER [facility] COMMENT This Pap test has been evaluated with computer assisted technology. 03/10/2018 10:43 AM SYRUP MIXER [facility] WARDROBE MISTRESS: SEE COMMENT 2018 10:43 AM SYRUP MIXER [facility] Comment: BRIDGETTE CHAMBERS(ASCP) CT screening location: [place] [address] [address] [place] [address] EXPLANATORY NOTE SEE COMMENT 019 10:43 AM SYRUP MIXER [facility] Comment: EXPLANATORY NOTE: The Pap is a screening test for cervical cancer. It is not a diagnostic test and is subject to false negative and false positive results. It is most reliable when a satisfactory sample, regularly obtained, is submitted with relevant clinical findings and history, and when the Pap result is evaluated along with historic and current clinical information. Genital SWAB OF ENDOCERVIX / Unknown Collection / Unknown 03/05/2018 1:03 PM SYRUP MIXER 03/06/2018 11:03 AM SYRUP MIXER Narrative [facility] - 03/10/2018 10:43 AM SYRUP MIXER Performing Organization Information: Site ID: [facility] Address: Counts include [address] beds at the [facility] Administration [place] [address] Director: Jessy Lam Lour[place] DISTRICT SALES REPRESENTATIVE PATHOLOGY/CYTOLOGY ORDERABLES Final Result [facility] from Last 3 Months or Most Recently Relevant to Health Maintenance Insurance [facility] Care Teams Sole Layer Hand Relationship Specialty Start Date End Date Geraldo Giles MD [address] [address] PCP - General Family Practice 03/22/18
--- OUTSIDE RECORDS SUMMARY | 2024-10-21 21:02 | XMS_ITS | Encounter Summary ---
Author Organization [facility] Address [address] [place] [address] Care Team Providers Care Primer Supervisor Name Role Phone Geraldo Giles MD Primary Care Provider [phone] Encounter Details Date Type Department Care Team (Late st Contact Info) Description 01/10/2006 Outpatient Historical [facility] Wound Care [address] 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
--- OUTSIDE RECORDS SUMMARY | 2024-10-21 21:02 | XMS_ITS | Patient Health Record ---
Author Organization [facility] Address [address] [place] [address] Care Team Providers Care Prepress Manager Name Role Phone [facility] Primary Care Provider U navailable Reason For Referral No Information Medications Medication SIG (Take, Route, Fr equency, Duration) Notes Start Date End Date Status KlonoPIN 0.5 MG 1 tablet at bedtime Orally Once a day Active PROzac 40 MG 1 capsule Orally Once a day Active Problems Problem Type SNOMED Code ICD Code Onset Dates Problem Status W/U Status Risk Notes Problem Hypertension (I10) Active confirmed Problem Anxiety (09361126) Anxiety (F41.9) Active confirmed Problem Depression (881313806) Depression (F32.9) Active confirmed Plan Of Treatment No Information Insurance Providers Payer Name Payer Address Payer Phone Subscriber Number Group Number Insured Name Patient Relationship to Insured Coverage Start Date Coverage End Date DO NOT USE [facility] [address] [address] [place] [address] [phone] [id number] Mirtha Miller Self - patient is the insured 0 Medical (General) History Medical History History ICD Code Hypertension I10 Anxiety F41.9 Depression F32.9 Surgical History Surgery Date(Month/Year) Hospitalization History Reason Date(Month/Year) Childbirth
--- OUTSIDE RECORDS SUMMARY | 2024-10-21 21:02 | XMS_ITS | Encounter Summary ---
Author Organization [facility] Address [address] [place] [address] Care Team Providers Care Health Psychologist Name Role Phone Geraldo Giles MD Primary Care Provider Encounter Details Date Type Department Care Team (Late st Contact Info) Description 03/26/2006 Outpatient Historical [facility] Ear, Nose and Thro[facility] 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
--- OUTSIDE RECORDS SUMMARY | 2024-10-21 21:02 | XMS_ITS | Encounter Summary ---
Author Organization [facility] Address [address] [place] [address] Care Team Providers Care Service Electrician Name Role Phone Geraldo Giles MD Primary Care Provider Encounter Details Date Type Department Care Team (Latest Contact Info) Description 12/25/2002 Outpatient Historical [address] [phone] Suzan Francis MD [address] [place] [address] CELLULITIS NOS (Primary Dx); ACUTE PHARYNGITIS; OTHER MALAISE AND FATIGUE Social History Tobacco Use Types Packs/Day Years Used Date Smoking Tobacco: Never Assessed Comments Unknown Sex and Gender Information Value Date Recorded Sex Assigned at Not on file Legal 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
--- OUTSIDE RECORDS SUMMARY | 2024-10-21 21:02 | XMS_ITS | Encounter Summary ---
Author Organization [facility] Address [address] [place] [address] Care Team Providers Care Medical Director Name Role Phone Geraldo Giles MD Primary Care Provider [phone] Encounter Details Date Type Department Care Team (Late st Contact Info) Description 06/22/2006 [facility] [address] [place] [address] Jack Hernandez MD [address] [phone] Social History Tobacco Use Types Packs/Day Years Used Date Smoking Tobacco: Never Assessed Comments Unknown Sex and Gender Information Value Date Recorded Sex Assigned at Not on file Legal Sex Female 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
--- OUTSIDE RECORDS SUMMARY | 2024-10-21 21:02 | XMS_ITS | Encounter Summary ---
Author Organization [facility] Address [address] [place] [address] Care Team Providers Care College Or University Department Head Name Role Phone Geraldo Giles MD Primary Care Provider [phone] Encounter Details Date Type Department Care Team (Latest Contact Info) Description 11/12/2006 Outpatient Historical [facility] [address] [place] [phone] Lourdes Guallpa, [facility] [address] [place] [phone] Other Malaise and Fatigue (Primary Dx); Polydipsia; Rash and Other Nonspecific Skin Eruption Social History Tobacco Use Types Packs/Day Years Used Date Smoking Tobacco: Never Assessed Comments Unknown Sex and Gender Information Value Date Recorded Sex Assigned at Not on file Legal 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
--- OUTSIDE RECORDS SUMMARY | 2024-10-21 21:02 | XMS_ITS | Encounter Summary ---
Author Organization [facility] Address [address] [place] [address] Care Team Providers Care Dental Technician Metal Name Role Phone Geraldo Giles MD Primary Care Provider Encounter Details Date Type Department Care Team (Latest Contact Info) Description 11/26/2006 Outpatient Historical [facility] Medicine [place] [address] [place] [phone] Lourdes Guallpa MICROSTRATEGY ARCHITECT [address] [place] [phone] Rash and Other Nonspecific Skin Eruption (Primary Dx); Need for Prophylactic Vaccination with Tetanus-Diphtheria (TD) Social History Tobacco Use Types Packs/Day Years Used Date Smoking Tobacco: Never Assessed Comments Unknown Sex and Gender Information Value Date Recorded Sex Assigned at Not on file 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
--- OUTSIDE RECORDS SUMMARY | 2024-10-21 21:02 | XMS_ITS | Encounter Summary ---
Author Organization [facility] Address [address] [place] [address] Care Team Providers Care Laborer Cement Gun Placing Name Role Phone Geralod Giles MD Primary Care Provider Encounter Details Date Type Department Care Team (Late st Contact Info) Description 02/11/2007 Outpatient Historical [facility] General and Trauma Surgery-[address] [place] [phone] Peter Carr MD [address] [place] [phone] Social History Tobacco Use Types Packs/Day Years Used Date Smoking Tobacco: Never Assessed Comments Unknown Sex and Gender Information Value Date Recorded Sex Assigned at Not on file 

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
--- OUTSIDE RECORDS SUMMARY | 2024-10-21 21:02 | XMS_ITS | Patient Health Record ---
Author Organization [facility] Address [address] [place] [address] Care Team Providers Care Supervisor Pumping Station Name Role Phone JERICA SOTO Primary Care Provider Allergies Allergen (clinical drug ingredient) Drug/Non Drug Allergy documented on EMR Reaction Allergy Type Onset Date Status No Known Drug Allergy Unknown Drug Allergy Active No Known Food Allergy Unknown Drug Allergy Active Reason For Referral No Information Medications Medication SIG (Take, Route, Frequency, Duration) Notes Start Date End Date Status busPIRone HCl 10 MG Tablet 1 tablet Oral ly Twice a day; Duration: 30 days Active FLUoxetine HCl 60 MG Tablet 1 capsule Orally Once a day; Duration: 30 days Active clonazePAM 0.5 MG Tablet 1 tablet Orally three times a day; Duration: 30 days 01/30/2022 Active Nicotine Step 3 7 MG/24HR Patch 24 Hour 1 patch to skin Transdermal Once a day; Duration: 30 day(s) Active Social History Tobacco Use: Social History Observation Description Date Details (start date - stop date) Current Smoker NA - NA Sex Assigned At : Social History Observation Description Sex Assigned At Female Social History *DoNotUse Social Info Question Answer Notes Pain Assessment Does pain exist today? Yes Date of onset Frequency Chronic Type Aching What makes pain better? Reposition What makes pain worse? Movement Pain score 4 Advanced Care Planning Advanced Directive No Living Will No Health Care Surrogate No Date Discussed with Patient/Family Sexual History: Social Info Question Answer Notes Sexual History Had sex in the past 12 months (vaginal, oral, or anal)? Yes with Men only Use protection? No Have you ever had a Sexually transmitted disease ? Yes Chlamydia? Yes Behavioral Health and Miscel laneous Social Info Question Answer Notes Sleep: How many hours a day? 8 Generalized Anxiety Disorder (ROBIN-7) Feeling nervous anxious or on edge (3) Nearly every day Not being able to stop or control worrying (3) N early every day Worrying too much about different things (3) Barbara rly every day Trouble relaxing (2) Over half the days Being so restless that it's hard to sit still (1 ) Several days Being easily annoyed or irritable (3) Nearly aretha ry day Feeling afraid as if something awful might happe n (3) Nearly every day Total score 18 Caffeine/Drugs/Alcohol/COW/B AM: Social Info Question Answer Notes Alcohol Screen (Audit-C) Did you have a drink containing alcohol in the past year? Yes How often did you have a drink containing alcohol in the past year? 2 to 4 times a month (2 points) How many drinks did you have on a typical day when you were drinking in the past year? 1 or 2 drinks (0 point) Points 2 Interpretation Negative Drugs Have you used drugs other than those for medical reasons in the past? Yes Caffeine Intake: 1-2 cups per day Tobacco Use: Social Info Question Answer Notes Previous Version Tobacco Screening Are you a current smoker How often do you smoke cigarettes? every day How many cigarettes a day do you smoke? 5 or less Tobacco use other than smoking: Are you an other tobacco user? Yes Vape Additional Details Category Social Info Options Details Behavioral Health and Miscellaneous Exercise: 1-2 times per week Caffeine: 1-2 cups per day Caffeine/Drugs/Alcohol/COW/BAM: Do you smoke marijuana ? Admits Do you drink alcohol? 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) Active confirmed Problem Borderline personality disorder (26853203) Borderline personality disorder (F60.3) Active confirmed Problem Hyperlipidemia (18183660) Hyperlipidemia (E78.5) Active confirmed Problem Anxiety (86870704) Anxiety (F41.9) Active confirmed Problem Body mass index 40+ - severely obese (911461812) Body mass index (BMI) of 40.0-44.9 in adult (Z68.41) Active confirmed Problem Body mass index 35.00 to 39.99 (908219196518609) Body mass index (BMI) of 39.0-39.9 in adult (Z68.39) Active confirmed Problem Recurrent major depression (37636196) Major depressive disorder, recurrent episode (F33.9) Active confirmed Problem Panic disorder (469404381) Panic attacks (F41.0) Active confirmed Plan Of Treatment Pending Test Test Name Order Date BEHAV CHNG SMOKING 3-10 MIN 08/23/2021 BEHAV CHNG SMOKING 3-10 MIN 11/08/2021 BEHAV CHNG SMOKING 3-10 MIN 01/30/2022 TOBACCO USE ASSESSED 01/30/2022 TOBACCO USE ASSESSED 11/08/2021 TOBACCO USE ASSESSED 08/23/2021 TOBACCO USE ASSESSED 01/12/2021 TOBACCO USE ASSESSED 10/20/2020 TOBACCO USE ASSESSED 10/22/2019 TOBACCO USE ASSESSED 12/10/2019 TOBACCO USE ASSESSED 01/18/2020 TOBACCO NON-USER 10/20/2020 TOBACCO NON-USER 01/18/2020 TOBACCO NON-USER 01/12/2021 SYS BP 130 - 139MM HG 11/08/2021 SYS BP 130 - 139MM HG 01/18/2020 SYS BP 130 - 139MM HG 10/22/2019 DIAST BP 80-89 MM HG 11/08/2021 DIAST BP < 80 MM HG 10/22/2019 DIAST BP < 80 MM HG 01/18/2020 TOBACCO-USE WATERMELON INSPECTOR 3-10 MIN 10/22/2019 TOBACCO-USE WATERMELON INSPECTOR 3-10 MIN 12/10/2019 TOBACCO-USE WATERMELON INSPECTOR 3-10 MIN 11/08/2021 TOBACCO-USE WATERMELON INSPECTOR 3-10 MIN 08/23/2021 TOBACCO-USE WATERMELON INSPECTOR 3-10 MIN 01/30/2022 DEPRESSION SCREEN ANNUAL 01/30/2022 DEPRESSION SCREEN ANNUAL 11/08/2021 DEPRESSION SCREEN ANNUAL 10/20/2020 ALCOHOL/SUBS INTERV 15-30 MIN 10/20/2020 ALCOHOL/SUBS INTERV 15-30 MIN 11/08/2021 ALCOHOL/SUBS INTERV 15-30 MIN 01/30/2022 ALCOHOL/SUBS INTERV 15-30 MIN 01/12/2021 ALCOHOL/SUBS INTERV 15-30 MIN 08/23/2021 Medication List Documented in medical re cord 01/12/2021 Medication List Documented in medical re cord 08/23/2021 Medication List Documented in medical re cord 01/30/2022 Medication List Documented in medical re cord 11/08/2021 Medication List Documented in medical re cord 10/20/2020 Pain severity quantified- Pain present 1 03/19/2019 Pain severity quantified- Pain present 0 10/22/2019 Pain severity quantified- Pain present 0 11/08/2021 Pain severity quantified- Pain present 0 08/23/2021 Pain severity quantified- Pain present 1 03/14/2020 Pain severity Quantified- No pain presen t 10/20/2020 Pain severity Quantified- No pain presen t 12/10/2019 BMI above normal parameters and f/u plan documented 10/22/2019 BMI above normal parameters and f/u plan documented 01/18/2020 BMI above normal parameters and f/u plan documented 01/12/2021 Advance Care Planning Discussion Monse haynes in the medical record 01/18/2020 Advance Care Planning Discussion Monse haynes in the medical record 10/22/2019 Advance Care Planning Discussion Monse haynes in the medical record 12/10/2019 BMI outside normal parameters, no f/u pl an documented, no reason given 10/20/2020 BMI outside normal parameters, no f/u pl an documented, no reason given 08/23/2021 BMI outside normal parameters, no f/u pl an documented, no reason given 11/08/2021 Screening for depression documented as n egative, so f/u is not required 12/10/2019 Medication Review 12/10/2019 Medication Review 10/22/2019 Medication Review 10/20/2020 Medication Review 01/18/2020 Medication Review 01/30/2022 Medication Review 11/08/2021 Medication Review 08/23/2021 Medication Review 01/12/2021 Allergies Reviewed 01/12/2021 Allergies Reviewed 08/23/2021 Allergies Reviewed 11/08/2021 Allergies Reviewed 01/30/2022 Allergies Reviewed 01/18/2020 Allergies Reviewed 10/20/2020 Allergies Reviewed 10/22/2019 Allergies Reviewed 12/10/2019 Insurance Providers Payer Name Payer Address Payer Phone Subscriber Number Group Number Insured Name Patient Relationship to Insured Coverage Start Date Coverage End Date [employer] [address] [place], [place] [id number] Mirtha Miller Self - patient is the insured 07/01/202 1 Medical (General) History Medical History History ICD Code Mental Illness hypertension No latex allergy Surgical History Surgery Date(Month/Year) Femur surgery-bilateral 10/2005 Right hand primatrix and skin graft 10/21 05 Ectopic pregnance 2009,2012 section 2016,2018 tubal ligation 2018
--- OUTSIDE RECORDS SUMMARY | 2024-10-21 21:02 | XMS_ITS | Encounter Summary ---
Author Organization [facility] Address [address] [place] [address] Care Team Providers Care Outdoor Advertising Leasing Agent Name Role Phone Geraldo Giles MD Primary Care Provider Encounter Details Date Type Department Care Team (Latest Contact Info) Description 08/21/2004 Outpatient Historical [facility] [address] [place] [phone] Fran Sapp MD [address] [place] [phone] NONINFECT VAG LEUKORRHEA (Primary Dx) Social History Tobacco Use Types Packs/Day Years Used Date Smoking Tobacco: Never Assessed Comments Unknown Sex and Gender Information Value Date Recorded Sex Assigned at Not on file 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
--- OUTSIDE RECORDS SUMMARY | 2024-10-21 21:02 | XMS_ITS | Encounter Summary ---
Author Organization [facility] Address [address] [place] [address] Care Team Providers Care Bracelet Form Coverer Name Role Phone Geraldo Giles MD Primary Care Provider Encounter Details Date Type Department Care Team (Latest Contact Info) Description 10/28/2002 Outpatient Historical [address] [phone] Suzan Francis MD [address] [place] [phone] Routine medical exam (Primary Dx) Social History Tobacco Use Types Packs/Day Years Used Date Smoking Tobacco: Never Assessed Comments Unknown Sex and Gender Information Value Date Recorded Sex Assigned at Not on file 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
--- OUTSIDE RECORDS SUMMARY | 2024-10-21 21:02 | XMS_ITS | Encounter Summary ---
Author Organization [facility] Address [address] [place] [address] Care Team Providers Care Executive Chef Name Role Phone Geraldo Giles MD Primary Care Provider Encounter Details Date Type Department Care Team (Late st Contact Info) Description 10/18/2005 Inpatient Historical HIS IN BED Horace Mckeon Jr., MD [address] [id number] Closed Fracture of Shaft of Femur (CMS/HCC) (Primary Dx) Social History Tobacco Use Types Packs/Day Years Used Date Smoking Tobacco: Never Assessed Comments Unknown Sex and Gender Information Value Date Recorded Sex Assigned at Not on file Legal Sex Female 4:44 AM 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 Gender Identity Not on file Sexual Orientation Not on file documented as of this encounter Plan of Treatment Not on file documented as of this encounter Procedures Procedure Name Priority Date/Time Associated Diagnosis Comments URINALYSIS MICROSCOPY ONLY Routine 10/27/2005 9:19 AM CDT URINALYSIS W/REFLEX MICROSCOPIC Routine 10/27/2005 9:19 AM CDT POC BLOOD GAS AND GLUCOSE Routine 10/27/2005 9:14 AM CDT DIFFERENTIAL, MANUAL Routine 10/27/2005 6:08 AM CDT POC BLOOD GAS AND GLUCOSE Routine 10/27/2005 6:08 AM CDT CBC WITH DIFFERENTIAL Routine 10/27/2005 6:08 AM CDT BASIC METABOLIC PANEL Routine 10/27/2005 6:08 AM CDT POC BLOOD GAS AND GLUCOSE Routine 10/27/2005 2:04 AM CDT POC BLOOD GAS AND GLUCOSE Routine 10/26/2005 9:56 PM CDT POC BLOOD GAS AND GLUCOSE Routine 10/26/2005 6:49 PM CDT POC BLOOD GAS AND GLUCOSE Routine 10/26/2005 4:07 PM CDT POC BLOOD GAS AND GLUCOSE Routine 10/26/2005 12:50 PM CDT POC BLOOD GAS AND GLUCOSE Routine 10/26/2005 5:42 AM CDT DIFFERENTIAL, MANUAL Routine 10/26/2005 5:39 AM CDT CBC WITH DIFFERENTIAL Routine 10/26/2005 5:39 AM CDT POC GLUCOSE Routine 10/25/2005 10:51 PM CDT POC GLUCOSE Routine 10/25/2005 5:09 PM CDT POC GLUCOSE Routine 10/25/2005 2:15 PM CDT POC BLOOD GAS AND GLUCOSE Routine 10/25/2005 5:29 AM CDT CBC WITH DIFFERENTIAL Routine 10/25/2005 5:24 AM CDT POC GLUCOSE Routine 10/25/2005 5:22 AM CDT POC GLUCOSE Routine 10/24/2005 11:12 PM CDT POC GLUCOSE Routine 10/24/2005 5:38 PM CDT POC GLUCOSE Routine 10/24/2005 12:17 PM CDT POC BLOOD GAS AND GLUCOSE Routine 10/24/2005 6:12 AM CDT POC GLUCOSE Routine 10/24/2005 6:04 AM CDT DIFFERENTIAL, MANUAL Routine 10/24/2005 5:11 AM CDT CBC WITH DIFFERENTIAL Routine 10/24/2005 5:11 AM CDT BASIC METABOLIC PANEL Routine 10/24/2005 5:11 AM CDT POC GLUCOSE Routine 10/24/2005 12:13 AM CDT VANCOMYCIN LEVEL PEAK Routine 10/23/2005 9:12 PM CDT VANCOMYCIN LEVEL TROUGH Routine 10/23/2005 7:36 PM CDT POC BLOOD GAS AND GLUCOSE Routine 10/23/2005 6:15 PM CDT PT AND APTT Routine 10/23/2005 3:17 PM CDT POC GLUCOSE Routine 10/23/2005 12:06 PM CDT DIFFERENTIAL, MANUAL Routine 10/23/2005 5:58 AM CDT CBC WITH DIFFERENTIAL Routine 10/23/2005 5:58 AM CDT COMPREHENSIVE METABOLIC PANEL Routine 10/23/2005 5:58 AM CDT POC BLOOD GAS AND GLUCOSE Routine 10/23/2005 5:43 AM CDT POC GLUCOSE Routine 10/23/2005 5:37 AM CDT POC GLUCOSE Routine 10/22/2005 11:16 PM CDT POC BLOOD GAS AND GLUCOSE Routine 10/22/2005 6:07 PM CDT POC GLUCOSE Routine 10/22/2005 11:36 AM CDT DIFFERENTIAL, MANUAL Routine 10/22/2005 5:46 AM CDT POC BLOOD GAS AND GLUCOSE Routine 10/22/2005 5:46 AM CDT PT AND APTT Routine 10/22/2005 5:46 AM CDT CBC WITH DIFFERENTIAL Routine 10/22/2005 5:46 AM CDT C-REACTIVE PROTEIN Routine 10/22/2005 5: 46 AM CDT PHOSPHORUS Routine 10/22/2005 5:46 AM CDT MAGNESIUM LEVEL Routine 10/22/2005 5:46 AM CDT COMPREHENSIVE METABOLIC PANEL Routine 10/22/2005 5:46 AM CDT POC GLUCOSE Routine 10/22/2005 5:39 AM CDT POC GLUCOSE Routine 10/21/2005 11:09 PM CDT SEDIMENTATION RATE Routine 10/21/2005 6: 08 PM CDT POC GLUCOSE Routine 10/21/2005 6:05 PM CDT PROCALCITONIN Routine 10/21/2005 5:57 PM CDT DIFFERENTIAL, MANUAL Routine 10/21/2005 5:57 PM CDT CBC WITH DIFFERENTIAL Routine 10/21/2005 5:57 PM CDT BASIC METABOLIC PANEL Routine 10/21/2005 5:57 PM CDT POC GLUCOSE Routine 10/21/2005 12:22 PM CDT PT AND APTT Routine 10/21/2005 5:51 AM CDT CBC WITH DIFFERENTIAL Routine 10/21/2005 5:51 AM CDT PREALBUMIN Routine 10/21/2005 5:51 AM CDT PHOSPHORUS Routine 10/21/2005 5:51 AM CDT MAGNESIUM LEVEL Routine 10/21/2005 5:51 AM CDT LIPASE Routine 10/21/2005 5:51 AM CDT AMYLASE Routine 10/21/2005 5:51 AM CDT COMPREHENSIVE METABOLIC PANEL Routine 10/21/2005 5:51 AM CDT POC BLOOD GAS AND GLUCOSE Routine 10/21/2005 5:34 AM CDT POC GLUCOSE Routine 10/21/2005 5:29 AM CDT POC GLUCOSE Routine 10/20/2005 11:27 PM CDT POC GLUCOSE Routine 10/20/2005 5:37 PM CDT DIFFERENTIAL, MANUAL Routine 10/20/2005 2:02 PM CDT CBC WITH DIFFERENTIAL Routine 10/20/2005 2:02 PM CDT POC BLOOD GAS, LYTES AND H+H Routine 10/20/2005 12:08 PM CDT POC GLUCOSE Routine 10/20/2005 12:02 PM CDT POC BLOOD GAS AND GLUCOSE Routine 10/20/2005 10:14 AM CDT DIFFERENTIAL, MANUAL Routine 10/20/2005 6:25 AM CDT CBC WITH DIFFERENTIAL Routine 10/20/2005 6:25 AM CDT POC BLOOD GAS AND GLUCOSE Routine 10/20/2005 6:24 AM CDT PT AND APTT Routine 10/20/2005 6:24 AM CDT BASIC METABOLIC PANEL Routine 10/20/2005 6:24 AM CDT POC GLUCOSE Routine 10/20/2005 6:17 AM CDT POC BLOOD GAS, LYTES AND H+H Routine 10/20/2005 12:01 AM CDT POC GLUCOSE Routine 10/19/2005 11:55 PM CDT POC BLOOD GAS, LYTES AND H+H Routine 10/19/2005 5:35 PM CDT POC GLUCOSE Routine 10/19/2005 5:27 PM CDT POC GLUCOSE Routine 10/19/2005 2:38 PM CDT HEMOGLOBIN AND HEMATOCRIT Routine 10/19/2005 12:27 PM CDT POC BLOOD GAS AND GLUCOSE Routine 10/19/2005 12:01 PM CDT DIFFERENTIAL, MANUAL Routine 10/19/2005 5:42 AM CDT DIC PROFILE Routine 10/19/2005 5:42 AM CDT CBC WITH DIFFERENTIAL Routine 10/19/2005 5:42 AM CDT COMPREHENSIVE METABOLIC PANEL Routine 10/19/2005 5:42 AM CDT POC BLOOD GAS AND GLUCOSE Routine 10/19/2005 5:37 AM CDT POC BLOOD GAS AND GLUCOSE Routine 10/19/2005 3:21 AM CDT POC BLOOD GAS AND GLUCOSE Routine 10/19/2005 12:24 AM CDT DIC PROFILE Routine 10/18/2005 9:58 PM CDT CBC WITH DIFFERENTIAL Routine 10/18/2005 9:58 PM CDT BASIC METABOLIC PANEL Routine 10/18/2005 9:58 PM CDT POC BLOOD GAS, LYTES AND H+H Routine 10/18/2005 9:37 PM CDT POC BLOOD GAS, LYTES AND H+H Routine 10/18/2005 9:17 PM CDT HEMOGLOBIN AND HEMATOCRIT Routine 10/18/2005 6:38 PM CDT HEMOGLOBIN AND HEMATOCRIT Routine 10/18/2005 5:20 PM CDT HCG QUANTITATIVE, BLOOD Routine 10/18/2005 2:31 PM CDT CBC WITH DIFFERENTIAL Routine 10/18/2005 2:00 PM CDT PROTIME-INR Routine 10/18/2005 2:00 PM CDT ETHANOL LEVEL Routine 10/18/2005 2:00 PM CDT BASIC METABOLIC PANEL Routine 10/18/2005 2:00 PM CDT documented in this encounter Results * URINALYSIS MICROSCOPY ONLY (10/27/2005 9:19 AM CDT) WBC URINE None Seen 0 - 2 INTERFACE SYSTEM RBC UA None Seen 0 - 2 INTERFACE SYSTEM HYALINE CAST None Seen 0 - 2 INTERFA CE SYSTEM BACTERIA UA None Seen None Seen INTERFAC E SYSTEM 10/27/2005 9:19 AM CDT us Horace Mckeon Jr., MD URINE ORDERABLES Final Result INTERFACE SYSTEM Refer to clinic/hospital department * (ABNORMAL) URINALYSIS (10/27/2005 9:19 AM CDT) COLOR UA Straw Straw INTERFACE SYSTEM CLARITY UA Clear Clear [...] NEGATIVE NEGATIVE INTERFACE SYSTEM SPECIFIC GRAVITY UA <=1.005(A) 1.005 - 1.030 INTERFACE SYSTEM MICRO EXAM Yes(A) No INTERFACE SYSTEM 10/27/2005 9:19 AM CDT Horace Mckeon Jr., MD URINE ORDERABLES Final Result INTERFACE SYSTEM Refer to clinic/hospital department * (ABNORMAL) POC ISTAT 8 (10/27/2005 9:14 AM CDT) SPECIMEN TYPE Venous INTERF FLY SYSTEM Comment: Sample not collected by CVS Tidal volume: 3 Pulse OX: 100 Hemoglobin calculated from Hematocrit result FIO2 3 INTERFACE SYSTEM PH 7.43(H) 7.31 - 7.41 Unit INTERFACE SYSTEM PH TEMP CORRECT 7.43(H) 7.31 - 7.41 Unit INTERFACE SYSTEM PCO2 POC 36(L) 41 - 51 mmHg INTERFACE SYSTEM PCO2 TEMP CORRECT 36(L) 41 - 51 mmHg INTERFACE SYSTEM PO2 45(L) 80 - 105 mmHg INTERFACE SYSTEM PO2 TEMP CORRECT 45(L) 80 - 105 mmHg INTERFACE SYSTEM HCO3 (CALC) POC 24.2 23.0 - 28.0 mmol/l INTERFACE SYSTEM BASE EXCESS 0 -2 - 3 mmol/l INTERFACE SYSTEM HEMOGLOBIN POC 7.8 3 g/dL 12.0 - 16.0 g/dL INTERFACE SYSTEM HEMATOCRIT ABG 23(L) 38 - 51 % INTER FACE SYSTEM O2 SATURATION 82(L) 95 - 98 % INTERF FLY SYSTEM TCO2 (CALC) POC 25 24 - 29 mmol/l INTERFACE SYSTEM SODIUM 141 138 - 146 mEq/L INTERFACE SYSTEM POTASSIUM 3.7 3.5 - 4.9 mEq/L INTERFACE SYSTEM CALCIUM IONIZED 1.15 1.12 - 1.32 mmol/l INTERFACE SYSTEM GLUCOSE 149(H) 70 - 105 mg/dL INTERFACE SYSTEM 10/27/2005 9:14 AM CDT MD ZAN Andre Jr. ORDERABLES Final R esult Performing Organization Address [facility] de Phone Number INTERFACE SYSTEM Refer to clinic/hospital department * (ABNORMAL) POC ISTAT 8 (10/27/2005 6:08 AM CDT) SPECIMEN TYPE Venous INTERF FLY SYSTEM Comment: Sample not collected by CVS Pulse OX: 100 Hemoglobin calculated from Hematocrit result FIO2 40 INTERFACE SYSTEM PH 7.43(H) 7.31 - 7.41 Unit INTERFACE SYSTEM PH TEMP CORRECT 7.43(H) 7.31 - 7.41 Unit INTERFACE SYSTEM PCO2 POC 36(L) 41 - 51 mmHg INTERFACE SYSTEM PCO2 TEMP CORRECT 36(L) 41 - 51 mmHg INTERFACE SYSTEM PO2 47(L) 80 - 105 mmHg INTERFACE SYSTEM PO2 TEMP CORRECT 47(L) 80 - 105 mmHg INTERFACE SYSTEM HCO3 (CALC) POC 23.7 23.0 - 28.0 mmol/l INTERFACE SYSTEM BASE EXCESS -1 -2 - 3 mmol/l INTERFACE SYSTEM HEMOGLOBIN POC 7.8 3 g/dL 12.0 - 16.0 g/dL INTERFACE SYSTEM HEMATOCRIT ABG 23(L) 38 - 51 % INTER FACE SYSTEM O2 SATURATION 84(L) 95 - 98 % INTERF FLY SYSTEM TCO2 (CALC) POC 25 24 - 29 mmol/l INTERFACE SYSTEM SODIUM 139 138 - 146 mEq/L INTERFACE SYSTEM POTASSIUM 3.9 3.5 - 4.9 mEq/L INTERFACE SYSTEM CALCIUM IONIZED 1.13 1.12 - 1.32 mmol/l INTERFACE SYSTEM GLUCOSE 134(H) 70 - 105 mg/dL INTERFACE SYSTEM 10/27/2005 6:08 AM CDT MD ZAN Andre Jr. ORDERABLES Final R esult Performing Organization Address [facility]/ZIP Co de Phone Number INTERFACE SYSTEM Refer to clinic/hospital department * (ABNORMAL) DIFFERENTIAL, MANUAL (10/27/2005 6:08 AM CDT) NEUTROPHILS, SEG 79(H) 36 - 66 % INT ERFACE SYSTEM LYMPHOCYTES 17(L) 24 - 44 % INTERFAC E SYSTEM MONOCYTE 3(L) 4 - 10 % INTERFACE SYSTEM MYELOCYTES 1 <=1 % INTERFACE SYSTEM PLATELET EST. Normal Normal INTERF FLY SYSTEM RBC MORPHOLOGY Abnormal(A ) Normal INTERFACE SYSTEM ANISOCYTOSIS 1+(A) None Seen INTERFA CE SYSTEM POLYCHROMASIA 1+(A) None Seen INTERF FLY SYSTEM 10/27/2005 6:08 AM CDT Autumn Hernandez MD HEMATOLOGY ORDERABLES COM Fin al Result Performing Organization Address [facility] Phone Number INTERFACE SYSTEM Refer to clinic/hospital department * (ABNORMAL) CBC WITH DIFFERENTIAL (10/27/2005 6:08 AM CDT) WBC 9.1 4.5 - 13.5 K/ul INTERFACE SYSTEM Comment: WBC Corrected for Nucleated RBC'S RBC 2.86(L) 4.30 - 5.30 Mil/ul INTERFACE SYSTEM HEMOGLOBIN 8.3(L) 12.0 - 16.0 g/dL INTERFACE SYSTEM HEMATOCRIT 25.3(L) 36.0 - 46.0 % INTERFACE SYSTEM MCV 88.5 78.0 - 102.0 Fl INTERFACE SYSTEM MCH 29.0 26.0 - 32.0 pg INTERFACE SYSTEM MCHC 32.8(L) 33.0 - 35.0 g/dL INTERFACE SYSTEM RDW 14.2 11.0 - 14.5 % INTERFACE SYSTEM PLATELETS 356 140 - 440 K/ul INTERFACE SYSTEM MPV 10.1 8.9 - 12.8 Fl INTERFACE SYSTEM NRBC 1 <=1 INTERFACE SYSTEM 10/27/2005 6:08 AM CDT Autumn Hernandez MD HEMATOLOGY ORDERABLES Edited Performing Organization Address [facility] Phone Number INTERFACE SYSTEM Refer to clinic/hospital department * (ABNORMAL) BASIC METABOLIC PANEL (10/27/2005 6:08 AM CDT) GLUCOSE 144(H) 70 - 110 mg/dL INTERFACE SYSTEM BUN 9 7 - 17 mg/dL INTERFACE SYSTEM CREATININE 0.3(L) 0.7 - 1.2 mg/dL INTERFACE SYSTEM SODIUM 140 136 - 145 mEq/L INTERFACE SYSTEM POTASSIUM 4.1 3.5 - 5.0 mEq/L INTERFACE SYSTEM CHLORIDE 108 95 - 110 mEq/L INTERFACE SYSTEM CO2 24 22 - 32 mmol/l INTERFACE SYSTEM ANION GAP 12 9 - 20 mEq/L INTERFACE SYSTEM OSMOLALITY, CALCULATED 289 275 - 295 mOsm/Kg INTERFACE SYSTEM CALCIUM 8.6 8.4 - 10.5 mg/dL INTERFACE SYSTEM 10/27/2005 6:08 AM CDT us Autumn Hernandez MD CHEMISTRY ORDERABLES Final Re sult INTERFACE SYSTEM Refer to clinic/hospital department * (ABNORMAL) POC ISTAT 8 (10/27/2005 2:04 AM CDT) Pathologist [facility] SPECIMEN TYPE Venous INTERF FLY SYSTEM Comment: Critical result performed at the point of care. Sample not collected by CVS Pulse OX: 100 Hemoglobin calculated from Hematocrit result FIO2 40 INTERFACE SYSTEM PH 7.45 7.35 - 7.45 Unit INTERFACE SYSTEM PH TEMP CORRECT 7.45 7.35 - 7.45 Unit INTERFACE SYSTEM PCO2 POC 36 35 - 45 mmHg INTERFACE SYSTEM PCO2 TEMP CORRECT 36 35 - 45 mmHg INTERFACE SYSTEM PO2 38(AA) 80 - 105 mmHg INTERFACE SYSTEM PO2 TEMP CORRECT 38(AA) 80 - 105 mmHg INTERFACE SYSTEM HCO3 (CALC) POC 24.6 22.0 - 26.0 mmol/l INTERFACE SYSTEM BASE EXCESS 1 -2 - 3 mmol/l INTERFACE SYSTEM HEMOGLOBIN POC 7.5 3 g/dL 12.0 - 16.0 g/dL INTERFACE SYSTEM HEMATOCRIT ABG 22(L) 38 - 51 % INTER FACE SYSTEM O2 SATURATION 76(L) 95 - 98 % INTERF FLY SYSTEM TCO2 (CALC) POC 26 23 - 27 mmol/l INTERFACE SYSTEM SODIUM 141 138 - 146 mEq/L INTERFACE SYSTEM POTASSIUM 4.0 3.5 - 4.9 mEq/L INTERFACE SYSTEM CALCIUM IONIZED 1.09(L) 1.12 - 1.32 mmol/l INTERFACE SYSTEM GLUCOSE 152(H) 70 - 105 mg/dL INTERFACE SYSTEM 10/27/2005 2:04 AM CDT MD ZAN Andre Jr. ORDERABLES Edited INTERFACE SYSTEM Refer to clinic/hospital department * (ABNORMAL) POC ISTAT 8 (10/26/2005 9:56 PM CDT) SPECIMEN TYPE Venous INTERF FLY SYSTEM Comment: Critical result performed at the point of care. Pulse OX: 100 Hemoglobin calculated from Hematocrit result FIO2 40 INTERFACE SYSTEM PH 7.45(H) 7.31 - 7.41 Unit INTERFACE SYSTEM PH TEMP CORRECT 7.45(H) 7.31 - 7.41 Unit INTERFACE SYSTEM PCO2 POC 38(L) 41 - 51 mmHg INTERFACE SYSTEM PCO2 TEMP CORRECT 38(L) 41 - 51 mmHg INTERFACE SYSTEM PO2 40(AA) 80 - 105 mmHg INTERFACE SYSTEM PO2 TEMP CORRECT 40(AA) 80 - 105 mmHg INTERFACE SYSTEM HCO3 (CALC) POC 25.9 23.0 - 28.0 mmol/l INTERFACE SYSTEM BASE EXCESS 2 -2 - 3 mmol/l INTERFACE SYSTEM HEMOGLOBIN POC 8.8 3 g/dL 12.0 - 16.0 g/dL INTERFACE SYSTEM HEMATOCRIT ABG 26(L) 38 - 51 % INTER FACE SYSTEM O2 SATURATION 77(L) 95 - 98 % INTERF FLY SYSTEM TCO2 (CALC) POC 27 24 - 29 mmol/l INTERFACE SYSTEM SODIUM 137(L) 138 - 146 mEq/L INTERFACE SYSTEM POTASSIUM 4.4 3.5 - 4.9 mEq/L INTERFACE SYSTEM CALCIUM IONIZED 1.22 1.12 - 1.32 mmol/l INTERFACE SYSTEM GLUCOSE 137(H) 70 - 105 mg/dL INTERFACE SYSTEM 10/26/2005 9:56 PM CDT MD ZAN Andre Jr. ORDERABLES Final R esult Performing Organization Address City/[facility]/ZIP Co de Phone Number INTERFACE SYSTEM Refer to clinic/hospital department * (ABNORMAL) POC ISTAT 8 (10/26/2005 6:49 PM CDT) SPECIMEN TYPE Venous INTERF FLY SYSTEM Comment: Critical result performed at the point of care. Sample not collected by CVS Hemoglobin calculated from Hematocrit result FIO2 35 INTERFACE SYSTEM PH 7.39 7.31 - 7.41 Unit INTERFACE SYSTEM PH TEMP CORRECT 7.39 7.31 - 7.41 Unit INTERFACE SYSTEM PCO2 POC 42 41 - 51 mmHg INTERFACE SYSTEM PCO2 TEMP CORRECT 42 41 - 51 mmHg INTERFACE SYSTEM PO2 42(AA) 80 - 105 mmHg INTERFACE SYSTEM PO2 TEMP CORRECT 42(AA) 80 - 105 mmHg INTERFACE SYSTEM HCO3 (CALC) POC 25.7 23.0 - 28.0 mmol/l INTERFACE SYSTEM BASE EXCESS 1 -2 - 3 mmol/l INTERFACE SYSTEM HEMOGLOBIN POC 8.8 3 g/dL 12.0 - 16.0 g/dL INTERFACE SYSTEM HEMATOCRIT ABG 26(L) 38 - 51 % INTER FACE SYSTEM O2 SATURATION 77(L) 95 - 98 % INTERF FLY SYSTEM TCO2 (CALC) POC 27 24 - 29 mmol/l INTERFACE SYSTEM SODIUM 138 138 - 146 mEq/L INTERFACE SYSTEM POTASSIUM 4.0 3.5 - 4.9 mEq/L INTERFACE SYSTEM CALCIUM IONIZED 1.14 1.12 - 1.32 mmol/l INTERFACE SYSTEM GLUCOSE 134(H) 70 - 105 mg/dL INTERFACE SYSTEM 10/26/2005 6:49 PM CDT us Horace Mckeon Jr., ABG ORDERABLES Final R esult INTERFACE SYSTEM Refer to clinic/hospital department * (ABNORMAL) POC ISTAT 8 (10/26/2005 4:07 PM CDT) SPECIMEN TYPE Venous INTERF FLY SYSTEM Comment: Critical result performed at the point of care. Pulse OX: 98 Hemoglobin calculated from Hematocrit result FIO2 55 INTERFACE SYSTEM PH 7.44(H) 7.31 - 7.41 Unit INTERFACE SYSTEM PH TEMP CORRECT 7.44(H) 7.31 - 7.41 Unit INTERFACE SYSTEM PCO2 POC 40(L) 41 - 51 mmHg INTERFACE SYSTEM PCO2 TEMP CORRECT 40(L) 41 - 51 mmHg INTERFACE SYSTEM PO2 43(AA) 80 - 105 mmHg INTERFACE SYSTEM PO2 TEMP CORRECT 43(AA) 80 - 105 mmHg INTERFACE SYSTEM HCO3 (CALC) POC 27.2 23.0 - 28.0 mmol/l INTERFACE SYSTEM BASE EXCESS 3 -2 - 3 mmol/l INTERFACE SYSTEM HEMOGLOBIN POC 8.5 3 g/dL 12.0 - 16.0 g/dL INTERFACE SYSTEM HEMATOCRIT ABG 25(L) 38 - 51 % INTER FACE SYSTEM O2 SATURATION 81(L) 95 - 98 % INTERF FLY SYSTEM TCO2 (CALC) POC 28 24 - 29 mmol/l INTERFACE SYSTEM SODIUM 137(L) 138 - 146 mEq/L INTERFACE SYSTEM POTASSIUM 3.9 3.5 - 4.9 mEq/L INTERFACE SYSTEM CALCIUM IONIZED 1.18 1.12 - 1.32 mmol/l INTERFACE SYSTEM GLUCOSE 150(H) 70 - 105 mg/dL INTERFACE SYSTEM 10/26/2005 4:07 PM CDT us Horace Mckeon Jr., ABG ORDERABLES Final R esult INTERFACE SYSTEM Refer to clinic/hospital department * (ABNORMAL) POC ISTAT 8 (10/26/2005 12:50 PM CDT) SPECIMEN TYPE Arterial INTERF FLY SYSTEM Comment: Pulse OX: 94 Hemoglobin calculated from Hematocrit result FIO2 60 INTERFACE SYSTEM TEMPERATURE 100.2 DegC INTERFAC E SYSTEM PH 7.44 7.35 - 7.45 Unit INTERFACE SYSTEM PH TEMP CORRECT 7.43 7.35 - 7.45 Unit INTERFACE SYSTEM PCO2 POC 35 35 - 45 mmHg INTERFACE SYSTEM PCO2 TEMP CORRECT 37 35 - 45 mmHg INTERFACE SYSTEM PO2 112(H) 80 - 105 mmHg INTERFACE SYSTEM PO2 TEMP CORRECT 118(H) 80 - 105 mmHg INTERFACE SYSTEM HCO3 (CALC) POC 23.9 22.0 - 26.0 mmol/l INTERFACE SYSTEM BASE EXCESS 0 -2 - 3 mmol/l INTERFACE SYSTEM HEMOGLOBIN POC 9.5 3 g/dL 12.0 - 16.0 g/dL INTERFACE SYSTEM HEMATOCRIT ABG 28(L) 38 - 51 % INTER FACE SYSTEM O2 SATURATION 99(H) 95 - 98 % INTERF FLY SYSTEM TCO2 (CALC) POC 25 23 - 27 mmol/l INTERFACE SYSTEM SODIUM 135(L) 138 - 146 mEq/L INTERFACE SYSTEM POTASSIUM 4.0 3.5 - 4.9 mEq/L INTERFACE SYSTEM CALCIUM IONIZED 1.18 1.12 - 1.32 mmol/l INTERFACE SYSTEM GLUCOSE 171(H) 70 - 105 mg/dL INTERFACE SYSTEM 10/26/2005 12:5 0 PM CDT Horace Mckeon Jr., MD ABG ORDERABLES Final R esult INTERFACE SYSTEM Refer to clinic/hospital department * (ABNORMAL) POC ISTAT 8 (10/26/2005 5:42 AM CDT) SPECIMEN TYPE Venous INTERF FLY SYSTEM Comment: Tidal volume: 560 PEEP: 05 Rate: 12 Pulse OX: 99 Hemoglobin calculated from Hematocrit result FIO2 35 INTERFACE SYSTEM PH 7.42(H) 7.31 - 7.41 Unit INTERFACE SYSTEM PH TEMP CORRECT 7.42(H) 7.31 - 7.41 Unit INTERFACE SYSTEM PCO2 POC 37(L) 41 - 51 mmHg INTERFACE SYSTEM PCO2 TEMP CORRECT 37(L) 41 - 51 mmHg INTERFACE SYSTEM PO2 44(L) 80 - 105 mmHg INTERFACE SYSTEM PO2 TEMP CORRECT 44(L) 80 - 105 mmHg INTERFACE SYSTEM HCO3 (CALC) POC 24.1 23.0 - 28.0 mmol/l INTERFACE SYSTEM BASE EXCESS 0 -2 - 3 mmol/l INTERFACE SYSTEM HEMOGLOBIN POC 8.2 3 g/dL 12.0 - 16.0 g/dL INTERFACE SYSTEM HEMATOCRIT ABG 24(L) 38 - 51 % INTER FACE SYSTEM O2 SATURATION 81(L) 95 - 98 % INTERF FLY SYSTEM TCO2 (CALC) POC 25 24 - 29 mmol/l INTERFACE SYSTEM SODIUM 138 138 - 146 mEq/L INTERFACE SYSTEM POTASSIUM 4.0 3.5 - 4.9 mEq/L INTERFACE SYSTEM CALCIUM IONIZED 1.23 1.12 - 1.32 mmol/l INTERFACE SYSTEM GLUCOSE 118(H) 70 - 105 mg/dL INTERFACE SYSTEM 10/26/2005 5:42 AM CDT Horace Mckeon Jr., MD ABG ORDERABLES Final R esult INTERFACE SYSTEM Refer to clinic/hospital department * (ABNORMAL) DIFFERENTIAL, MANUAL (10/26/2005 5:39 AM CDT) NEUTROPHILS, SEG 54 36 - 66 % INT ERFACE SYSTEM BANDS 3 0 - 6 % INTERFACE SYSTEM LYMPHOCYTES 23(L) 24 - 44 % INTERFAC E SYSTEM MONOCYTE 13(H) 4 - 10 % INTERFACE SYSTEM EOSINOPHILS 2 0 - 3 % INTERFAC E SYSTEM METAMYELOCYTE 3(H) 0 - 1 % INTERF FLY SYSTEM MYELOCYTES 2(H) <=1 % INTERFACE SYSTEM PLATELET EST. Normal Normal INTERF FLY SYSTEM RBC MORPHOLOGY Abnormal(A ) Normal INTERFACE SYSTEM ANISOCYTOSIS 1+(A) None Seen INTERFA CE SYSTEM POIKILOCYTES 1+(A) None Seen INTERFA CE SYSTEM POLYCHROMASIA 1+(A) None Seen INTERF FLY SYSTEM 10/26/2005 5:39 AM CDT Horace Mckeon Jr., MD HEMATOLOGY ORDERABLES C OM Final Result Performing Organization Address [facility] Phone Number INTERFACE SYSTEM Refer to clinic/hospital department * (ABNORMAL) CBC WITH DIFFERENTIAL (10/26/2005 5:39 AM CDT) WBC 6.5 4.5 - 13.5 K/ul INTERFACE SYSTEM RBC 2.89(L) 4.30 - 5.30 Mil/ul INTERFACE SYSTEM HEMOGLOBIN 8.5(L) 12.0 - 16.0 g/dL INTERFACE SYSTEM HEMATOCRIT 26.0(L) 36.0 - 46.0 % INTERFACE SYSTEM MCV 90.0 78.0 - 102.0 Fl INTERFACE SYSTEM MCH 29.4 26.0 - 32.0 pg INTERFACE SYSTEM MCHC 32.7(L) 33.0 - 35.0 g/dL INTERFACE SYSTEM RDW 14.7(H) 11.0 - 14.5 % INTERFACE SYSTEM PLATELETS 279 140 - 440 K/ul INTERFACE SYSTEM MPV 10.1 8.9 - 12.8 Fl INTERFACE SYSTEM 10/26/2005 5:39 AM CDT Horace Mckeon Jr., MD HEMATOLOGY ORDERABLES F inal Result Performing Organization Address [facility] de Phone Number INTERFACE SYSTEM Refer to clinic/hospital department * (ABNORMAL) POC GLUCOSE (10/25/2005 10:51 PM CDT) GLUCOSE POC 135(H) 60 - 100 mg/dL INTERFACE SYSTEM 10/25/2005 10:5 1 PM CDT Jamee Yao MD POINT OF CARE TESTING Final Result Performing Organization Address City/State/[facility] Co de Phone Number INTERFACE SYSTEM Refer to clinic/hospital department * (ABNORMAL) POC GLUCOSE (10/25/2005 5:09 PM CDT) GLUCOSE POC 130(H) 60 - 100 mg/dL INTERFACE SYSTEM 10/25/2005 5:09 PM CDT Jamee Yao MD POINT OF CARE TESTING Final Result Performing Organization Address [facility] de Phone Number INTERFACE SYSTEM Refer to clinic/hospital department * (ABNORMAL) POC GLUCOSE (10/25/2005 2:15 PM CDT) GLUCOSE POC 117(H) 60 - 100 mg/dL INTERFACE SYSTEM 10/25/2005 2:15 PM CDT Jamee Yao MD POINT OF CARE TESTING Final Result Performing Organization Address [facility] de Phone Number INTERFACE SYSTEM Refer to clinic/hospital department * (ABNORMAL) POC ISTAT 8 (10/25/2005 5:29 AM CDT) SPECIMEN TYPE Venous INTERF FLY SYSTEM Comment: Tidal volume: 560 PEEP: 06 Rate: 12 Pulse OX: 99 Hemoglobin calculated from Hematocrit result FIO2 35 INTERFACE SYSTEM PH 7.40 7.31 - 7.41 Unit INTERFACE SYSTEM PH TEMP CORRECT 7.40 7.31 - 7.41 Unit INTERFACE SYSTEM PCO2 POC 37(L) 41 - 51 mmHg INTERFACE SYSTEM PCO2 TEMP CORRECT 37(L) 41 - 51 mmHg INTERFACE SYSTEM PO2 47(L) 80 - 105 mmHg INTERFACE SYSTEM PO2 TEMP CORRECT 47(L) 80 - 105 mmHg INTERFACE SYSTEM HCO3 (CALC) POC 22.6(L) 23.0 - 28.0 mmol/l INTERFACE SYSTEM BASE EXCESS -2 -2 - 3 mmol/l INTERFACE SYSTEM HEMOGLOBIN POC 7.5 3 g/dL 12.0 - 16.0 g/dL INTERFACE SYSTEM HEMATOCRIT ABG 22(L) 38 - 51 % INTER FACE SYSTEM O2 SATURATION 82(L) 95 - 98 % INTERF FLY SYSTEM TCO2 (CALC) POC 24 24 - 29 mmol/l INTERFACE SYSTEM SODIUM 139 138 - 146 mEq/L INTERFACE SYSTEM POTASSIUM 3.7 3.5 - 4.9 mEq/L INTERFACE SYSTEM CALCIUM IONIZED 1.23 1.12 - 1.32 mmol/l INTERFACE SYSTEM GLUCOSE 115(H) 70 - 105 mg/dL INTERFACE SYSTEM 10/25/2005 5:29 AM CDT us Horace Mckeon Jr., MD ABG ORDERABLES Final R esult INTERFACE SYSTEM Refer to clinic/hospital department * (ABNORMAL) CBC WITH DIFFERENTIAL (10/25/2005 5:24 AM CDT) WBC 6.3 4.5 - 13.5 K/ul INTERFACE SYSTEM RBC 2.80(L) 4.30 - 5.30 Mil/ul INTERFACE SYSTEM HEMOGLOBIN 8.0(L) 12.0 - 16.0 g/dL INTERFACE SYSTEM HEMATOCRIT 25.3(L) 36.0 - 46.0 % INTERFACE SYSTEM MCV 90.4 78.0 - 102.0 Fl INTERFACE SYSTEM MCH 28.6 26.0 - 32.0 pg INTERFACE SYSTEM MCHC 31.6(L) 33.0 - 35.0 g/dL INTERFACE SYSTEM RDW 14.9(H) 11.0 - 14.5 % INTERFACE SYSTEM PLATELETS 192 140 - 440 K/ul INTERFACE SYSTEM MPV 10.7 8.9 - 12.8 Fl INTERFACE SYSTEM NEUTROPHILS 64.7 42.2 - 75.2 % INTERFACE SYSTEM LYMPHOCYTES 21.1(L) 24.0 - 44.0 % INTERFACE SYSTEM MONOCYTES 8.5(H) 4.0 - 5.0 % INTERFAC E SYSTEM EOSINOPHILS 5.4 0.0 - 7.0 % INTERF FLY SYSTEM BASOPHILS 0.3 0.0 - 1.0 % INTERFAC E SYSTEM NEUTROPHIL ABSOLUTE 4.0 2.0 - 8.0 K/uL INTERFACE SYSTEM LYMPHOCYTE ABSOLUTE 1.3 1.2 - 4.0 K/ul INTERFACE SYSTEM MONOCYTE ABSOLUTE 0.5 0.1 - 0.6 K/ul INTERFACE SYSTEM EOSINOPHIL ABSOLUTE 0.3 0.0 - 0.7 K/ul INTERFACE SYSTEM BASOPHILS ABSOLUTE 0.0 0.0 - 0.2 K/ul INTERFACE SYSTEM PERIPHERAL BLOOD SMEAR REVIEW Automated Diff Automated Diff INTERFACE SYSTEM 10/25/2005 5:24 AM CDT Horace Mckeon Jr., MD HEMATOLOGY ORDERABLES F inal Result Performing Organization Address [place]/[facility] Phone Number INTERFACE SYSTEM Refer to clinic/hospital department * (ABNORMAL) POC GLUCOSE (10/25/2005 5:22 AM CDT) GLUCOSE POC 153(H) 60 - 100 mg/dL INTERFACE SYSTEM 10/25/2005 5:22 AM CDT Jamee Yao MD POINT OF CARE TESTING Final Result Performing Organization Address [facility] Phone Number INTERFACE SYSTEM Refer to clinic/hospital department * (ABNORMAL) POC GLUCOSE (10/24/2005 11:12 PM CDT) GLUCOSE POC 115(H) 60 - 100 mg/dL INTERFACE SYSTEM 10/24/2005 11:1 2 PM CDT Horace Mckeon Jr., MD POINT OF CARE TESTING F inal Result Performing Organization Address [facility] Phone Number INTERFACE SYSTEM Refer to clinic/hospital department * (ABNORMAL) POC GLUCOSE (10/24/2005 5:38 PM CDT) GLUCOSE POC 136(H) 60 - 100 mg/dL INTERFACE SYSTEM 10/24/2005 5:38 PM CDT Horace Mckeon Jr., MD POINT OF CARE TESTING F inal Result Performing Organization Address [facility] Phone Number INTERFACE SYSTEM Refer to clinic/hospital department * POC GLUCOSE (10/24/2005 12:17 PM CDT) GLUCOSE POC 90 60 - 100 mg/dL INTERFACE SYSTEM 10/24/2005 12:1 7 PM CDT Horace Mckeon Jr., MD POINT OF CARE TESTING F inal Result Performing Organization Address [place]/[facility] Co de Phone Number INTERFACE SYSTEM Refer to clinic/hospital department * (ABNORMAL) POC ISTAT 8 (10/24/2005 6:12 AM CDT) SPECIMEN TYPE Arterial INTERF FLY SYSTEM Comment: Tidal volume: 560 PEEP: 09 Rate: 12 Pulse OX: 100 Hemoglobin calculated from Hematocrit result FIO2 35 INTERFACE SYSTEM PH 7.41 7.35 - 7.45 Unit INTERFACE SYSTEM PH TEMP CORRECT 7.41 7.35 - 7.45 Unit INTERFACE SYSTEM PCO2 POC 35 35 - 45 mmHg INTERFACE SYSTEM PCO2 TEMP CORRECT 35 35 - 45 mmHg INTERFACE SYSTEM PO2 125(H) 80 - 105 mmHg INTERFACE SYSTEM PO2 TEMP CORRECT 125(H) 80 - 105 mmHg INTERFACE SYSTEM HCO3 (CALC) POC 22.1 22.0 - 26.0 mmol/l INTERFACE SYSTEM BASE EXCESS -3(L) -2 - 3 mmol/l INTERFACE SYSTEM HEMOGLOBIN POC 7.5 3 g/dL 12.0 - 16.0 g/dL INTERFACE SYSTEM HEMATOCRIT ABG 22(L) 38 - 51 % INTER FACE SYSTEM O2 SATURATION 99(H) 95 - 98 % INTERF FLY SYSTEM TCO2 (CALC) POC 23 23 - 27 mmol/l INTERFACE SYSTEM SODIUM 141 138 - 146 mEq/L INTERFACE SYSTEM POTASSIUM 3.5 3.5 - 4.9 mEq/L INTERFACE SYSTEM CALCIUM IONIZED 1.21 1.12 - 1.32 mmol/l INTERFACE SYSTEM GLUCOSE 117(H) 70 - 105 mg/dL INTERFACE SYSTEM 10/24/2005 6:12 AM CDT Horace Mckeon Jr., MD ABG ORDERABLES Final R esult INTERFACE SYSTEM Refer to clinic/hospital department * (ABNORMAL) POC GLUCOSE (10/24/2005 6:04 AM CDT) GLUCOSE POC 130(H) 60 - 100 mg/dL INTERFACE SYSTEM 10/24/2005 6:04 AM CDT Horace Mckeon Jr., MD POINT OF CARE TESTING F inal Result Performing Organization Address [facility] Phone Number INTERFACE SYSTEM Refer to clinic/hospital department * (ABNORMAL) DIFFERENTIAL, MANUAL (10/24/2005 5:11 AM CDT) NEUTROPHILS, SEG 72(H) 36 - 66 % INT ERFACE SYSTEM BANDS 1 0 - 6 % INTERFACE SYSTEM LYMPHOCYTES 20(L) 24 - 44 % INTERFAC E SYSTEM MONOCYTE 3(L) 4 - 10 % INTERFACE SYSTEM EOSINOPHILS 4(H) 0 - 3 % INTERFAC E SYSTEM PLATELET EST. Decreased (A) Normal INTERFACE SYSTEM RBC MORPHOLOGY Abnormal( A) Normal INTERFACE SYSTEM ANISOCYTOSIS 1+(A) None Seen INTERFA CE SYSTEM POIKILOCYTES 1+(A) None Seen INTERFA CE SYSTEM POLYCHROMASIA 1+(A) None Seen INTERF FLY SYSTEM 10/24/2005 5:11 AM CDT Suman Morrell MD HEMATOLOGY ORDERABLES COM Final Result Performing Organization Address [facility] Phone Number INTERFACE SYSTEM Refer to clinic/hospital department * (ABNORMAL) BASIC METABOLIC PANEL (10/24/2005 5:11 AM CDT) GLUCOSE 110 70 - 110 mg/dL INTERFACE SYSTEM BUN 12 7 - 17 mg/dL INTERFACE SYSTEM CREATININE 0.4(L) 0.7 - 1.2 mg/dL INTERFACE SYSTEM SODIUM 141 136 - 145 mEq/L INTERFACE SYSTEM POTASSIUM 3.7 3.5 - 5.0 mEq/L INTERFACE SYSTEM CHLORIDE 114(H) 95 - 110 mEq/L INTERFACE SYSTEM CO2 23 22 - 32 mmol/l INTERFACE SYSTEM ANION GAP 8(L) 9 - 20 mEq/L INTERFACE SYSTEM OSMOLALITY, CALCULATED 290 275 - 295 mOsm/Kg INTERFACE SYSTEM CALCIUM 8.1(L) 8.4 - 10.5 mg/dL INTERFACE SYSTEM 10/24/2005 5:11 AM CDT Suman Morrell MD CHEMISTRY ORDERABLES F inal Result Performing Organization Address [facility] Phone Number INTERFACE SYSTEM Refer to clinic/hospital department * (ABNORMAL) CBC WITH DIFFERENTIAL (10/24/2005 5:11 AM CDT) WBC 7.2 4.5 - 13.5 K/ul INTERFACE SYSTEM RBC 2.80(L) 4.30 - 5.30 Mil/ul INTERFACE SYSTEM HEMOGLOBIN 8.0(L) 12.0 - 16.0 g/dL INTERFACE SYSTEM HEMATOCRIT 25.1(L) 36.0 - 46.0 % INTERFACE SYSTEM MCV 89.6 78.0 - 102.0 Fl INTERFACE SYSTEM MCH 28.6 26.0 - 32.0 pg INTERFACE SYSTEM MCHC 31.9(L) 33.0 - 35.0 g/dL INTERFACE SYSTEM RDW 15.2(H) 11.0 - 14.5 % INTERFACE SYSTEM PLATELETS 135(L) 140 - 440 K/ul INTERFACE SYSTEM MPV 11.3 8.9 - 12.8 Fl INTERFACE SYSTEM 10/24/2005 5:11 AM CDT Suman Morrell MD HEMATOLOGY ORDERABLES Final Result Performing Organization Address [facility] Phone Number INTERFACE SYSTEM Refer to clinic/hospital department * (ABNORMAL) POC GLUCOSE (10/24/2005 12:13 AM CDT) Pathologist [facility] GLUCOSE POC 108(H) 60 - 100 mg/dL INTERFACE SYSTEM 10/24/2005 12:1 3 AM CDT Horace Mckeon Jr., MD POINT OF CARE TESTING F inal Result Performing Organization Address [facility] Phone Number INTERFACE SYSTEM Refer to clinic/hospital department * VANCOMYCIN LEVEL PEAK (10/23/2005 9:12 PM CDT) VANCOMYCIN, PEAK 37.8 25.0 - 40.0 mcg/mL INTERFACE SYSTEM 10/23/2005 9:12 PM CDT Horace Mckeon Jr., MD CHEMISTRY ORDERABLES Fi nal Result Performing Organization Address [facility] Phone Number INTERFACE SYSTEM Refer to clinic/hospital department * VANCOMYCIN LEVEL TROUGH (10/23/2005 7:36 PM CDT) VANCOMYCIN, TROUGH 8.6 5.0 - 15.0 mcg/mL INTERFACE SYSTEM 10/23/2005 7:36 PM CDT Horace Mckeon Jr., MD CHEMISTRY ORDERABLES Fi nal Result Performing Organization Address [facility] de Phone Number INTERFACE SYSTEM Refer to clinic/hospital department * (ABNORMAL) POC ISTAT 8 (10/23/2005 6:15 PM CDT) SPECIMEN TYPE Arterial INTERF FLY SYSTEM Comment: Tidal volume: 560 PEEP: 09 Rate: 12 Pulse OX: 100 Hemoglobin calculated from Hematocrit result FIO2 35 INTERFACE SYSTEM TEMPERATURE 101.7 DegC INTERFAC E SYSTEM PH 7.42 7.35 - 7.45 Unit INTERFACE SYSTEM PH TEMP CORRECT 7.39 7.35 - 7.45 Unit INTERFACE SYSTEM PCO2 POC 36 35 - 45 mmHg INTERFACE SYSTEM PCO2 TEMP CORRECT 38 35 - 45 mmHg INTERFACE SYSTEM PO2 124(H) 80 - 105 mmHg INTERFACE SYSTEM PO2 TEMP CORRECT 135(H) 80 - 105 mmHg INTERFACE SYSTEM HCO3 (CALC) POC 23.0 22.0 - 26.0 mmol/l INTERFACE SYSTEM BASE EXCESS -2 -2 - 3 mmol/l INTERFACE SYSTEM HEMOGLOBIN POC 7.1 3 g/dL 12.0 - 16.0 g/dL INTERFACE SYSTEM HEMATOCRIT ABG 21(L) 38 - 51 % INTER FACE SYSTEM O2 SATURATION 99(H) 95 - 98 % INTERF FLY SYSTEM TCO2 (CALC) POC 24 23 - 27 mmol/l INTERFACE SYSTEM SODIUM 139 138 - 146 mEq/L INTERFACE SYSTEM POTASSIUM 3.6 3.5 - 4.9 mEq/L INTERFACE SYSTEM CALCIUM IONIZED 1.22 1.12 - 1.32 mmol/l INTERFACE SYSTEM GLUCOSE 109(H) 70 - 105 mg/dL INTERFACE SYSTEM 10/23/2005 6:15 PM CDT Horace Mckeon Jr., MD ABG ORDERABLES Final R esult Performing Organization Address [facility] de Phone Number INTERFACE SYSTEM Refer to clinic/hospital department * (ABNORMAL) PT AND APTT (10/23/2005 3:17 PM CDT) PROTIME 16.4(H) 12.6 - 14.9 Secs INTERFACE SYSTEM Comment: As of 04 note change in normal range. INR 1.3 INTERFACE SYSTEM Comment: Expected Values for INR: DVT/PE Goal INR 2.5; range 2.0 - 3.0 Valve Replacement Tissue Goal INR 2.5; range 2.0 - 3.0 Mechanical Goal INR 3.0; range 2.5 - 3.5 POST-IL Goal INR 2.5; range 2.0 - 3.0 or Goal 3.0; range 2.5 - 3.5 Atrial Fibrillation Goal INR 2.5; range 2.0 - 3.0 Ischemic Stroke Goal INR 2.5; range 2.0 - 3.0 For additional information see Guidelines for Anticoagulation available from the pharmacy [facility]. PTT 37.1(H) 21.5 - 34.4 Secs INTERFACE SYSTEM Comment: Therapeutic Range: Hi-level PE/DVT heparin protocol 90.1 -110 sec Lo-level PE/DVT heparin protocol 75.1 - 95 sec Cardiac Heparin Protocol 85.1 - 100 sec Neuro Heparin Protocol 70.1 - 85 sec As of 03/28/05 note change in APTT Normal Range. 10/23/2005 3:17 PM CDT us Suman Morrell MD HEMATOLOGY ORDERABLES Final Result Performing Organization Address [place]/[facility] Phone Number INTERFACE SYSTEM Refer to clinic/hospital department * (ABNORMAL) POC GLUCOSE (10/23/2005 12:06 PM CDT) GLUCOSE POC 140(H) 60 - 100 mg/dL INTERFACE SYSTEM 10/23/2005 12:0 6 PM CDT us Horace Mckeon Jr., MD POINT OF CARE TESTING F inal Result Performing Organization Address [facility] de Phone Number INTERFACE SYSTEM Refer to clinic/hospital department * (ABNORMAL) DIFFERENTIAL, MANUAL (10/23/2005 5:58 AM CDT) NEUTROPHILS, SEG 74(H) 36 - 66 % INTERFACE SYSTEM LYMPHOCYTES 16(L) 24 - 44 % INTERFAC E SYSTEM MONOCYTE 9 4 - 10 % INTERFACE SYSTEM EOSINOPHILS 1 0 - 3 % INTERFAC E SYSTEM PLATELET EST. Decreased( A) Normal INTERFACE SYSTEM RBC MORPHOLOGY Normal Normal INTER FACE SYSTEM 10/23/2005 5:58 AM CDT us Suman Morrell MD HEMATOLOGY ORDERABLES COM Final Result INTERFACE SYSTEM Refer to clinic/hospital department * (ABNORMAL) COMPREHENSIVE METABOLIC PANEL (10/23/2005 5:58 AM CDT) GLUCOSE 126(H) 70 - 110 mg/dL INTERFACE SYSTEM BUN 11 7 - 17 mg/dL INTERFACE SYSTEM CREATININE 0.4(L) 0.7 - 1.2 mg/dL INTERFACE SYSTEM SODIUM 141 136 - 145 mEq/L INTERFACE SYSTEM POTASSIUM 3.8 3.5 - 5.0 mEq/L INTERFACE SYSTEM CHLORIDE 113(H) 95 - 110 mEq/L INTERFACE SYSTEM CO2 21(L) 22 - 32 mmol/l INTERFACE SYSTEM ANION GAP 11 9 - 20 mEq/L INTERFACE SYSTEM OSMOLALITY, CALCULATED 290 275 - 295 mOsm/Kg INTERFACE SYSTEM CALCIUM 7.9(L) 8.4 - 10.5 mg/dL INTERFACE SYSTEM TOTAL PROTEIN 4.4(L) 6.3 - 8.2 g/dL INTERFACE SYSTEM ALBUMIN 2.3(L) 3.5 - 5.0 g/dL INTERFACE SYSTEM GLOBULIN (CALC) 2.1(L) 2.4 - 3.9 g/dL INTERFACE SYSTEM ALBUMIN/GLOBULIN RATIO 1.1 1.0 - 2.3 INTERFACE SYSTEM ALKALINE PHOSPHATASE 94 39 - 126 U/L INTERFACE SYSTEM Comment: As of 05 the [facility] has changed testing methods. The new reference range is 25-100 The old referance range was 38-126 AST 58(H) 8 - 33 U/L INTERFACE SYSTEM Comment: As of 05 the [facility] has changed testing methods. The new reference range is 8-33 The old referance range was Males 17-59 Females 14-36 ALT 41(H) 4 - 36 IU/L INTERFACE SYSTEM Comment: As of 05 the [facility] has changed testing methods. The new reference range is 4-36 The old referance range was Males 21-72 Females 9-52 BILIRUBIN TOTAL 1.6(H) 0.3 - 1.2 mg/dL INTERFACE SYSTEM Comment: As of 05 the [facility] has changed testing methods. The new reference range is 0.3-1.2 The old referance range was 0.2-1.4 10/23/2005 5:58 AM CDT Suman Morrell MD CHEMISTRY ORDERABLES F inal Result Performing Organization Address [facility] Phone Number INTERFACE SYSTEM Refer to clinic/hospital department * (ABNORMAL) CBC WITH DIFFERENTIAL (10/23/2005 5:58 AM CDT) WBC 6.4 4.5 - 13.5 K/ul INTERFACE SYSTEM RBC 2.86(L) 4.30 - 5.30 Mil/ul INTERFACE SYSTEM HEMOGLOBIN 8.3(L) 12.0 - 16.0 g/dL INTERFACE SYSTEM HEMATOCRIT 25.2(L) 36.0 - 46.0 % INTERFACE SYSTEM MCV 88.1 78.0 - 102.0 Fl INTERFACE SYSTEM MCH 29.0 26.0 - 32.0 pg INTERFACE SYSTEM MCHC 32.9(L) 33.0 - 35.0 g/dL INTERFACE SYSTEM RDW 15.3(H) 11.0 - 14.5 % INTERFACE SYSTEM PLATELETS 100(L) 140 - 440 K/ul INTERFACE SYSTEM MPV 11.3 8.9 - 12.8 Fl INTERFACE SYSTEM 10/23/2005 5:58 AM CDT Suman Morrell MD HEMATOLOGY ORDERABLES Final Result Performing Organization Address [facility] Phone Number INTERFACE SYSTEM Refer to clinic/hospital department * (ABNORMAL) POC ISTAT 8 (10/23/2005 5:43 AM CDT) SPECIMEN TYPE Arterial INTERF FLY SYSTEM Comment: Tidal volume: 560 PEEP: 09 Rate: 12 Pulse OX: 98 Hemoglobin calculated from Hematocrit result FIO2 35 INTERFACE SYSTEM PH 7.42 7.35 - 7.45 Unit INTERFACE SYSTEM PH TEMP CORRECT 7.42 7.35 - 7.45 Unit INTERFACE SYSTEM PCO2 POC 36 35 - 45 mmHg INTERFACE SYSTEM PCO2 TEMP CORRECT 36 35 - 45 mmHg INTERFACE SYSTEM PO2 128(H) 80 - 105 mmHg INTERFACE SYSTEM PO2 TEMP CORRECT 128(H) 80 - 105 mmHg INTERFACE SYSTEM HCO3 (CALC) POC 23.4 22.0 - 26.0 mmol/l INTERFACE SYSTEM BASE EXCESS -1 -2 - 3 mmol/l INTERFACE SYSTEM HEMOGLOBIN POC 7.5 3 g/dL 12.0 - 16.0 g/dL INTERFACE SYSTEM HEMATOCRIT ABG 22(L) 38 - 51 % INTER FACE SYSTEM O2 SATURATION 99(H) 95 - 98 % INTERF FLY SYSTEM TCO2 (CALC) POC 25 23 - 27 mmol/l INTERFACE SYSTEM SODIUM 139 138 - 146 mEq/L INTERFACE SYSTEM POTASSIUM 3.8 3.5 - 4.9 mEq/L INTERFACE SYSTEM CALCIUM IONIZED 1.19 1.12 - 1.32 mmol/l INTERFACE SYSTEM GLUCOSE 120(H) 70 - 105 mg/dL INTERFACE SYSTEM 10/23/2005 5:43 AM CDT Horace Mckeon Jr., MD ABG ORDERABLES Final R esult Performing Organization Address [facility] Phone Number INTERFACE SYSTEM Refer to clinic/hospital department * (ABNORMAL) POC GLUCOSE (10/23/2005 5:37 AM CDT) GLUCOSE POC 141(H) 60 - 100 mg/dL INTERFACE SYSTEM 10/23/2005 5:37 AM CDT Horace Mckeon Jr., MD POINT OF CARE TESTING F inal Result Performing Organization Address [facility] Phone Number INTERFACE SYSTEM Refer to clinic/hospital department * (ABNORMAL) POC GLUCOSE (10/22/2005 11:16 PM CDT) GLUCOSE POC 114(H) 60 - 100 mg/dL INTERFACE SYSTEM 10/22/2005 11:1 6 PM CDT Horace Mckeon Jr., MD POINT OF CARE TESTING F inal Result INTERFACE SYSTEM Refer to clinic/hospital department * (ABNORMAL) POC ISTAT 8 (10/22/2005 6:07 PM CDT) SPECIMEN TYPE Arterial INTERF FLY SYSTEM Comment: Tidal volume: 560 PEEP: 09 Rate: 12 Pulse OX: 98 Hemoglobin calculated from Hematocrit result FIO2 35 INTERFACE SYSTEM TEMPERATURE 101.8 DegC INTERFAC E SYSTEM PH 7.43 7.35 - 7.45 Unit INTERFACE SYSTEM PH TEMP CORRECT 7.40 7.35 - 7.45 Unit INTERFACE SYSTEM PCO2 POC 33(L) 35 - 45 mmHg INTERFACE SYSTEM PCO2 TEMP CORRECT 36 35 - 45 mmHg INTERFACE SYSTEM PO2 121(H) 80 - 105 mmHg INTERFACE SYSTEM PO2 TEMP CORRECT 133(H) 80 - 105 mmHg INTERFACE SYSTEM HCO3 (CALC) POC 21.6(L) 22.0 - 26.0 mmol/l INTERFACE SYSTEM BASE EXCESS -3(L) -2 - 3 mmol/l INTERFACE SYSTEM HEMOGLOBIN POC 7.8 3 g/dL 12.0 - 16.0 g/dL INTERFACE SYSTEM HEMATOCRIT ABG 23(L) 38 - 51 % INTER FACE SYSTEM O2 SATURATION 99(H) 95 - 98 % INTERF FLY SYSTEM TCO2 (CALC) POC 23 23 - 27 mmol/l INTERFACE SYSTEM SODIUM 140 138 - 146 mEq/L INTERFACE SYSTEM POTASSIUM 3.4(L) 3.5 - 4.9 mEq/L INTERFACE SYSTEM CALCIUM IONIZED 1.16 1.12 - 1.32 mmol/l INTERFACE SYSTEM GLUCOSE 132(H) 70 - 105 mg/dL INTERFACE SYSTEM 10/22/2005 6:07 PM CDT Horace Mckeon Jr., MD ABG ORDERABLES Final R esult INTERFACE SYSTEM Refer to clinic/hospital department * (ABNORMAL) POC GLUCOSE (10/22/2005 11:36 AM CDT) GLUCOSE POC 151(H) 60 - 100 mg/dL INTERFACE SYSTEM 10/22/2005 11:3 6 AM CDT us Horace Mckeon Jr., MD POINT OF CARE TESTING F inal Result INTERFACE SYSTEM Refer to clinic/hospital department * (ABNORMAL) POC ISTAT 8 (10/22/2005 5:46 AM CDT) SPECIMEN TYPE Arterial INTERF FLY SYSTEM Comment: Tidal volume: 560 PEEP: 09 Rate: 12 Pulse OX: 99 Hemoglobin calculated from Hematocrit result FIO2 35 INTERFACE SYSTEM PH 7.41 7.35 - 7.45 Unit INTERFACE SYSTEM PH TEMP CORRECT 7.41 7.35 - 7.45 Unit INTERFACE SYSTEM PCO2 POC 33(L) 35 - 45 mmHg INTERFACE SYSTEM PCO2 TEMP CORRECT 33(L) 35 - 45 mmHg INTERFACE SYSTEM PO2 144(H) 80 - 105 mmHg INTERFACE SYSTEM PO2 TEMP CORRECT 144(H) 80 - 105 mmHg INTERFACE SYSTEM HCO3 (CALC) POC 20.8(L) 22.0 - 26.0 mmol/l INTERFACE SYSTEM BASE EXCESS -4(L) -2 - 3 mmol/l INTERFACE SYSTEM HEMOGLOBIN POC 8.8 3 g/dL 12.0 - 16.0 g/dL INTERFACE SYSTEM HEMATOCRIT ABG 26(L) 38 - 51 % INTER FACE SYSTEM O2 SATURATION 99(H) 95 - 98 % INTERF FLY SYSTEM TCO2 (CALC) POC 22(L) 23 - 27 mmol/l INTERFACE SYSTEM SODIUM 139 138 - 146 mEq/L INTERFACE SYSTEM POTASSIUM 3.6 3.5 - 4.9 mEq/L INTERFACE SYSTEM CALCIUM IONIZED 1.17 1.12 - 1.32 mmol/l INTERFACE SYSTEM GLUCOSE 147(H) 70 - 105 mg/dL INTERFACE SYSTEM 10/22/2005 5:46 AM CDT us Horace Mckeon Jr., MD ABG ORDERABLES Final R esult INTERFACE SYSTEM Refer to clinic/hospital department * (ABNORMAL) DIFFERENTIAL, MANUAL (10/22/2005 5:46 AM CDT) NEUTROPHILS, SEG 87(H) 36 - 66 % INTERFACE SYSTEM BANDS 6 0 - 6 % INTERFACE SYSTEM LYMPHOCYTES 4(L) 24 - 44 % INTERFAC E SYSTEM MONOCYTE 2(L) 4 - 10 % INTERFACE SYSTEM EOSINOPHILS 1 0 - 3 % INTERFAC E SYSTEM PLATELET EST. Decreased( A) Normal INTERFACE SYSTEM RBC MORPHOLOGY Normal Normal INTER FACE SYSTEM 10/22/2005 5:46 AM CDT us Juarez Pike DO HEMATOLOGY ORDERABLES COM Final Result Performing Organization Address [place]/[facility] Phone Number INTERFACE SYSTEM Refer to clinic/hospital department * (ABNORMAL) CBC WITH DIFFERENTIAL (10/22/2005 5:46 AM CDT) WBC 9.0 4.5 - 13.5 K/ul INTERFACE SYSTEM RBC 3.26(L) 4.30 - 5.30 Mil/ul INTERFACE SYSTEM HEMOGLOBIN 9.4(L) 12.0 - 16.0 g/dL INTERFACE SYSTEM HEMATOCRIT 28.3(L) 36.0 - 46.0 % INTERFACE SYSTEM MCV 86.8 78.0 - 102.0 Fl INTERFACE SYSTEM MCH 28.8 26.0 - 32.0 pg INTERFACE SYSTEM MCHC 33.2 33.0 - 35.0 g/dL INTERFACE SYSTEM RDW 14.9(H) 11.0 - 14.5 % INTERFACE SYSTEM PLATELETS 78(L) 140 - 440 K/ul INTERFACE SYSTEM MPV 11.0 8.9 - 12.8 Fl INTERFACE SYSTEM 10/22/2005 5:46 AM CDT us Juarez Pike DO HEMATOLOGY ORDERABLES Final Res ult Performing Organization Address [facility] Phone Number INTERFACE SYSTEM Refer to clinic/hospital department * (ABNORMAL) COMPREHENSIVE METABOLIC PANEL (10/22/2005 5:46 AM CDT) GLUCOSE 149(H) 70 - 110 mg/dL INTERFACE SYSTEM BUN 10 7 - 17 mg/dL INTERFACE SYSTEM CREATININE 0.4(L) 0.7 - 1.2 mg/dL INTERFACE SYSTEM SODIUM 142 136 - 145 mEq/L INTERFACE SYSTEM POTASSIUM 3.6 3.5 - 5.0 mEq/L INTERFACE SYSTEM CHLORIDE 114(H) 95 - 110 mEq/L INTERFACE SYSTEM CO2 23 22 - 32 mmol/l INTERFACE SYSTEM ANION GAP 9 9 - 20 mEq/L INTERFACE SYSTEM OSMOLALITY, CALCULATED 293 275 - 295 mOsm/Kg INTERFACE SYSTEM CALCIUM 7.6(L) 8.4 - 10.5 mg/dL INTERFACE SYSTEM TOTAL PROTEIN 4.4(L) 6.3 - 8.2 g/dL INTERFACE SYSTEM ALBUMIN 2.4(L) 3.5 - 5.0 g/dL INTERFACE SYSTEM GLOBULIN (CALC) 2.0(L) 2.4 - 3.9 g/dL INTERFACE SYSTEM ALBUMIN/GLOBULIN RATIO 1.2 1.0 - 2.3 INTERFACE SYSTEM ALKALINE PHOSPHATASE 85 39 - 126 U/L INTERFACE SYSTEM Comment: As of 05 the [facility] has changed testing methods. The new reference range is 25-100 The old referance range was 38-126 AST 65(H) 8 - 33 U/L INTERFACE SYSTEM Comment: As of 05 the [facility] has changed testing methods. The new reference range is 8-33 The old referance range was Males 17-59 Females 14-36 ALT 39(H) 4 - 36 IU/L INTERFACE SYSTEM Comment: As of 05 the [facility] has changed testing methods. The new reference range is 4-36 The old referance range was Males 21-72 Females 9-52 BILIRUBIN TOTAL 2.0(H) 0.3 - 1.2 mg/dL INTERFACE SYSTEM Comment: As of 05 the [facility] has changed testing methods. The new reference range is 0.3-1.2 The old referance range was 0.2-1.4 10/22/2005 5:46 AM CDT us Juarez Pike DO CHEMISTRY ORDERABLES Final Resu lt Performing Organization Address [facility] Co de Phone Number INTERFACE SYSTEM Refer to clinic/hospital department * PHOSPHORUS (10/22/2005 5:46 AM CDT) PHOSPHORUS 2.8 2.6 - 5.0 mg/dL INTERFACE SYSTEM 10/22/2005 5:46 AM CDT us Juarez Pike DO CHEMISTRY ORDERABLES Final Resu lt Performing Organization Address City/[facility]/ZIP Co de Phone Number INTERFACE SYSTEM Refer to clinic/hospital department * MAGNESIUM LEVEL (10/22/2005 5:46 AM CDT) MAGNESIUM 1.8 1.7 - 2.4 mg/dL INTERFACE SYSTEM Comment: As of 05 the [facility] has changed testing methods. The new reference range is 1.7-2.4 The old referance range was 1.6-2.3 10/22/2005 5:46 AM CDT us Juarez Pike DO CHEMISTRY ORDERABLES Final Resu lt Performing Organization Address [place]/[facility] Phone Number INTERFACE SYSTEM Refer to clinic/hospital department * (ABNORMAL) C-REACTIVE PROTEIN (10/22/2005 5:46 AM CDT) CRP 31.32(H) 0.00 - 1.00 mg/dL INTERFACE SYSTEM 10/22/2005 5:46 AM CDT us Juarez Pike DO CHEMISTRY ORDERABLES Final Resu lt Performing Organization Address [place]/[facility] Phone Number INTERFACE SYSTEM Refer to clinic/hospital department * (ABNORMAL) PT AND APTT (10/22/2005 5:46 AM CDT) PROTIME 17.0(H) 12.6 - 14.9 Secs INTERFACE SYSTEM Comment: As of 04 note change in normal range. INR 1.3 INTERFACE SYSTEM Comment: Expected Values for INR: DVT/PE Goal INR 2.5; range 2.0 - 3.0 Valve Replacement Tissue Goal INR 2.5; range 2.0 - 3.0 Mechanical Goal INR 3.0; range 2.5 - 3.5 POST-IL Goal INR 2.5; range 2.0 - 3.0 or Goal 3.0; range 2.5 - 3.5 Atrial Fibrillation Goal INR 2.5; range 2.0 - 3.0 Ischemic Stroke Goal INR 2.5; range 2.0 - 3.0 For additional information see Guidelines for Anticoagulation available from the pharmacy [facility]. PTT 45.0(H) 21.5 - 34.4 Secs INTERFACE SYSTEM Comment: Therapeutic Range: Hi-level PE/DVT heparin protocol 90.1 -110 sec Lo-level PE/DVT heparin protocol 75.1 - 95 sec Cardiac Heparin Protocol 85.1 - 100 sec Neuro Heparin Protocol 70.1 - 85 sec As of 03/28/05 note change in APTT Normal Range. 10/22/2005 5:46 AM CDT Juarez Pike DO HEMATOLOGY ORDERABLES Final Res ult Performing Organization Address [facility] Phone Number INTERFACE SYSTEM Refer to clinic/hospital department * (ABNORMAL) POC GLUCOSE (10/22/2005 5:39 AM CDT) GLUCOSE POC 159(H) 60 - 100 mg/dL INTERFACE SYSTEM 10/22/2005 5:39 AM CDT Horace Mckeon Jr., MD POINT OF CARE TESTING F inal Result Performing Organization Address [facility] Phone Number INTERFACE SYSTEM Refer to clinic/hospital department * (ABNORMAL) POC GLUCOSE (10/21/2005 11:09 PM CDT) GLUCOSE POC 148(H) 60 - 100 mg/dL INTERFACE SYSTEM 10/21/2005 11:0 9 PM CDT Horace Mckeon Jr., MD POINT OF CARE TESTING F inal Result Performing Organization Address [facility] Phone Number INTERFACE SYSTEM Refer to clinic/hospital department * (ABNORMAL) SEDIMENTATION RATE (10/21/2005 6:08 PM CDT) ESR (SEDIMENTATION RATE) 68(H) 0 - 22 mm/hr INTERFACE SYSTEM 10/21/2005 6:08 PM CDT us Juarez Pike DO HEMATOLOGY ORDERABLES Final Res ult Performing Organization Address [facility] Phone Number INTERFACE SYSTEM Refer to clinic/hospital department * POC GLUCOSE (10/21/2005 6:05 PM CDT) GLUCOSE POC 94 60 - 100 mg/dL INTERFACE SYSTEM 10/21/2005 6:05 PM CDT Horace Mckeon Jr., MD POINT OF CARE TESTING F inal Result Performing Organization Address [facility] Phone Number INTERFACE SYSTEM Refer to clinic/hospital department * (ABNORMAL) BASIC METABOLIC PANEL (10/21/2005 5:57 PM CDT) GLUCOSE 122(H) 70 - 110 mg/dL INTERFACE SYSTEM BUN 9 7 - 17 mg/dL INTERFACE SYSTEM CREATININE 0.4(L) 0.7 - 1.2 mg/dL INTERFACE SYSTEM SODIUM 142 136 - 145 mEq/L INTERFACE SYSTEM Comment:CORRECTION MADE TO T O RECALIBRATION OF ELECTROLYTE ELECTRODE (INSTRUMENTATION ERROR) POTASSIUM 3.7 3.5 - 5.0 mEq/L INTERFACE SYSTEM CHLORIDE 115(H) 95 - 110 mEq/L INTERFACE SYSTEM CO2 21(L) 22 - 32 mmol/l INTERFACE SYSTEM ANION GAP 10 9 - 20 mEq/L INTERFACE SYSTEM OSMOLALITY, CALCULATED 291 275 - 295 mOsm/Kg INTERFACE SYSTEM CALCIUM 7.7(L) 8.4 - 10.5 mg/dL INTERFACE SYSTEM 10/21/2005 5:57 PM CDT us Juarez Pike DO CHEMISTRY ORDERABLES Final Resu lt Performing Organization Address [facility] Number INTERFACE SYSTEM Refer to clinic/hospital department * PROCALCITONIN, SERUM (10/21/2005 5:57 PM CDT) PROCALCITONIN Sent to Reference Lab INTERFACE SYSTEM 10/21/2005 5:57 PM CDT us Juarez Pike DO CHEMISTRY ORDERABLES Final Resu lt Performing Organization Address [facility] Phone Number INTERFACE SYSTEM Refer to clinic/hospital department * (ABNORMAL) DIFFERENTIAL, MANUAL (10/21/2005 5:57 PM CDT) Pathologist [facility] NEUTROPHILS, SEG 75(H) 36 - 66 % INT ERFACE SYSTEM BANDS 2 0 - 6 % INTERFACE SYSTEM LYMPHOCYTES 15(L) 24 - 44 % INTERFAC E SYSTEM MONOCYTE 5 4 - 10 % INTERFACE SYSTEM EOSINOPHILS 2 0 - 3 % INTERFAC E SYSTEM BASOPHILS 1 0 - 1 % INTERFACE SYSTEM PLATELET EST. Decreased (A) Normal INTERFACE SYSTEM RBC MORPHOLOGY Abnormal( A) Normal INTERFACE SYSTEM POLYCHROMASIA Present(A ) None Seen INTERFACE SYSTEM 10/21/2005 5:57 PM CDT us Juarez Pike DO HEMATOLOGY ORDERABLES COM Final Result INTERFACE SYSTEM Refer to clinic/hospital department * (ABNORMAL) CBC WITH DIFFERENTIAL (10/21/2005 5:57 PM CDT) Pathologist [facility] WBC 10.0 4.5 - 13.5 K/ul INTERFACE SYSTEM RBC 3.48(L) 4.30 - 5.30 Mil/ul INTERFACE SYSTEM HEMOGLOBIN 10.3(L) 12.0 - 16.0 g/dL INTERFACE SYSTEM HEMATOCRIT 30.4(L) 36.0 - 46.0 % INTERFACE SYSTEM MCV 87.4 78.0 - 102.0 Fl INTERFACE SYSTEM MCH 29.6 26.0 - 32.0 pg INTERFACE SYSTEM MCHC 33.9 33.0 - 35.0 g/dL INTERFACE SYSTEM RDW 14.5 11.0 - 14.5 % INTERFACE SYSTEM PLATELETS 75(L) 140 - 440 K/ul INTERFACE SYSTEM MPV 10.7 8.9 - 12.8 Fl INTERFACE SYSTEM NEUTROPHILS 80.5(H) 42.2 - 75.2 % INTERFACE SYSTEM LYMPHOCYTES 12.9(L) 24.0 - 44.0 % INTERFACE SYSTEM MONOCYTES 4.4 4.0 - 5.0 % INTERFACE SYSTEM EOSINOPHILS 2.0 0.0 - 7.0 % INTERFACE SYSTEM BASOPHILS 0.2 0.0 - 1.0 % INTERFACE SYSTEM NEUTROPHIL ABSOLUTE 8.1(H) 2.0 - 8.0 K/uL INTERFACE SYSTEM LYMPHOCYTE ABSOLUTE 1.3 1.2 - 4.0 K/ul INTERFACE SYSTEM MONOCYTE ABSOLUTE 0.4 0.1 - 0.6 K/ul INTERFACE SYSTEM EOSINOPHIL ABSOLUTE 0.2 0.0 - 0.7 K/ul INTERFACE SYSTEM BASOPHILS ABSOLUTE 0.0 0.0 - 0.2 K/ul INTERFACE SYSTEM 10/21/2005 5:57 PM CDT us Juarez Pike DO HEMATOLOGY ORDERABLES Final Res ult Performing Organization Address [facility] Phone Number INTERFACE SYSTEM Refer to clinic/hospital department * (ABNORMAL) POC GLUCOSE (10/21/2005 12:22 PM CDT) GLUCOSE POC 117(H) 60 - 100 mg/dL INTERFACE SYSTEM 10/21/2005 12:2 2 PM CDT Horace Mckeon Jr., MD POINT OF CARE TESTING F inal Result Performing Organization Address [facility] Phone Number INTERFACE SYSTEM Refer to clinic/hospital department * (ABNORMAL) AMYLASE (10/21/2005 5:51 AM CDT) AMYLASE 179(H) 20 - 104 U/L INTERFACE SYSTEM Comment: As of 05 the [facility] has changed testing methods. The new reference range is 20-104 The old referance range was 30-120 10/21/2005 5:51 AM CDT us Juarez Pike DO CHEMISTRY ORDERABLES Final Resu lt Performing Organization Address [facility] Phone Number INTERFACE SYSTEM Refer to clinic/hospital department * (ABNORMAL) LIPASE (10/21/2005 5:51 AM CDT) LIPASE 62(H) 6 - 51 U/L INTERFACE SYSTEM Comment: As of 05 the [facility] has changed testing methods. The new reference range is 6-51 The old referance range was 23-300 10/21/2005 5:51 AM CDT us Juarez Pike DO CHEMISTRY ORDERABLES Final Resu lt Performing Organization Address [facility] Phone Number INTERFACE SYSTEM Refer to clinic/hospital department * (ABNORMAL) PT AND APTT (10/21/2005 5:51 AM CDT) PROTIME 18.7(H) 12.6 - 14.9 Secs INTERFACE SYSTEM Comment: As of 04 note change in normal range. INR 1.5 INTERFACE SYSTEM Comment: Expected Values for INR: DVT/PE Goal INR 2.5; range 2.0 - 3.0 Valve Replacement Tissue Goal INR 2.5; range 2.0 - 3.0 Mechanical Goal INR 3.0; range 2.5 - 3.5 POST-IL Goal INR 2.5; range 2.0 - 3.0 or Goal 3.0; range 2.5 - 3.5 Atrial Fibrillation Goal INR 2.5; range 2.0 - 3.0 Ischemic Stroke Goal INR 2.5; range 2.0 - 3.0 For additional information see Guidelines for Anticoagulation available from the pharmacy [facility] D. PTT 40.5(H) 21.5 - 34.4 Secs INTERFACE SYSTEM Comment: Therapeutic Range: Hi-level PE/DVT heparin protocol 90.1 -110 sec Lo-level PE/DVT heparin protocol 75.1 - 95 sec Cardiac Heparin Protocol 85.1 - 100 sec Neuro Heparin Protocol 70.1 - 85 sec As of 03/28/05 note change in APTT Normal Range. 10/21/2005 5:51 AM CDT Horace Mckeon Jr., MD HEMATOLOGY ORDERABLES F inal Result Performing Organization Address [facility] Phone Number INTERFACE SYSTEM Refer to clinic/hospital department * (ABNORMAL) PREALBUMIN (10/21/2005 5:51 AM CDT) PREALBUMIN 6.9(L) 14.0 - 32.0 mg/dL INTERFACE SYSTEM 10/21/2005 5:51 AM CDT Horace Mckeon Jr., MD CHEMISTRY ORDERABLES Fi nal Result Performing Organization Address [facility]/ZIP Co de Phone Number INTERFACE SYSTEM Refer to clinic/hospital department * (ABNORMAL) COMPREHENSIVE METABOLIC PANEL (10/21/2005 5:51 AM CDT) GLUCOSE 137(H) 70 - 110 mg/dL INTERFACE SYSTEM BUN 8 7 - 17 mg/dL INTERFACE SYSTEM CREATININE 0.4(L) 0.7 - 1.2 mg/dL INTERFACE SYSTEM SODIUM 141 136 - 145 mEq/L INTERFACE SYSTEM POTASSIUM 3.7 3.5 - 5.0 mEq/L INTERFACE SYSTEM CHLORIDE 114(H) 95 - 110 mEq/L INTERFACE SYSTEM CO2 21(L) 22 - 32 mmol/l INTERFACE SYSTEM ANION GAP 10 9 - 20 mEq/L INTERFACE SYSTEM OSMOLALITY, CALCULATED 290 275 - 295 mOsm/Kg INTERFACE SYSTEM CALCIUM 7.9(L) 8.4 - 10.5 mg/dL INTERFACE SYSTEM TOTAL PROTEIN 4.4(L) 6.3 - 8.2 g/dL INTERFACE SYSTEM ALBUMIN 2.5(L) 3.5 - 5.0 g/dL INTERFACE SYSTEM GLOBULIN (CALC) 1.9(L) 2.4 - 3.9 g/dL INTERFACE SYSTEM ALBUMIN/GLOBULIN RATIO 1.3 1.0 - 2.3 INTERFACE SYSTEM ALKALINE PHOSPHATASE 71 39 - 126 U/L INTERFACE SYSTEM Comment: As of 05 the [facility] has changed testing methods. The new reference range is 25-100 The old referance range was 38-126 AST 81(H) 8 - 33 U/L INTERFACE SYSTEM Comment: As of 05 the [facility] has changed testing methods. The new reference range is 8-33 The old referance range was Males 17-59 Females 14-36 ALT 37(H) 4 - 36 IU/L INTERFACE SYSTEM Comment: As of 05 the [facility] has changed testing methods. The new reference range is 4-36 The old referance range was Males 21-72 Females 9-52 BILIRUBIN TOTAL 5.8(H) 0.3 - 1.2 mg/dL INTERFACE SYSTEM Comment: As of 05 the [facility] has changed testing methods. The new reference range is 0.3-1.2 The old referance range was 0.2-1.4 10/21/2005 5:51 AM CDT Horace Mckeon Jr., MD CHEMISTRY ORDERABLES Fi nal Result Performing Organization Address [facility] Phone Number INTERFACE SYSTEM Refer to clinic/hospital department * (ABNORMAL) PHOSPHORUS (10/21/2005 5:51 AM CDT) PHOSPHORUS 1.6(L) 2.6 - 5.0 mg/dL INTERFACE SYSTEM 10/21/2005 5:51 AM CDT Horace Mckeon Jr., MD CHEMISTRY ORDERABLES Fi nal Result Performing Organization Address [facility] Phone Number INTERFACE SYSTEM Refer to clinic/hospital department * MAGNESIUM LEVEL (10/21/2005 5:51 AM CDT) MAGNESIUM 1.8 1.7 - 2.4 mg/dL INTERFACE SYSTEM Comment: As of 05 the [facility] has changed testing methods. The new reference range is 1.7-2.4 The old referance range was 1.6-2.3 10/21/2005 5:51 AM CDT Horace Mckeon Jr., MD CHEMISTRY ORDERABLES Fi nal Result Performing Organization Address [facility] Phone Number INTERFACE SYSTEM Refer to clinic/hospital department * (ABNORMAL) CBC WITH DIFFERENTIAL (10/21/2005 5:51 AM CDT) WBC 10.5 4.5 - 13.5 K/ul INTERFACE SYSTEM RBC 3.69(L) 4.30 - 5.30 Mil/ul INTERFACE SYSTEM HEMOGLOBIN 11.0(L) 12.0 - 16.0 g/dL INTERFACE SYSTEM HEMATOCRIT 31.6(L) 36.0 - 46.0 % INTERFACE SYSTEM MCV 85.6 78.0 - 102.0 Fl INTERFACE SYSTEM MCH 29.8 26.0 - 32.0 pg INTERFACE SYSTEM MCHC 34.8 33.0 - 35.0 g/dL INTERFACE SYSTEM RDW 14.5 11.0 - 14.5 % INTERFACE SYSTEM PLATELETS 70(L) 140 - 440 K/ul INTERFACE SYSTEM MPV 10.8 8.9 - 12.8 Fl INTERFACE SYSTEM NEUTROPHILS 79.1(H) 42.2 - 75.2 % INTERFACE SYSTEM LYMPHOCYTES 13.5(L) 24.0 - 44.0 % INTERFACE SYSTEM MONOCYTES 5.2(H) 4.0 - 5.0 % INTERFAC E SYSTEM EOSINOPHILS 2.0 0.0 - 7.0 % INTERF FLY SYSTEM BASOPHILS 0.2 0.0 - 1.0 % INTERFAC E SYSTEM NEUTROPHIL ABSOLUTE 8.3(H) 2.0 - 8.0 K/uL INTERFACE SYSTEM LYMPHOCYTE ABSOLUTE 1.4 1.2 - 4.0 K/ul INTERFACE SYSTEM MONOCYTE ABSOLUTE 0.5 0.1 - 0.6 K/ul INTERFACE SYSTEM EOSINOPHIL ABSOLUTE 0.2 0.0 - 0.7 K/ul INTERFACE SYSTEM BASOPHILS ABSOLUTE 0.0 0.0 - 0.2 K/ul INTERFACE SYSTEM PERIPHERAL BLOOD SMEAR REVIEW Automated Diff Automated Diff INTERFACE SYSTEM 10/21/2005 5:51 AM CDT us Horace Mckeon Jr., MD HEMATOLOGY ORDERABLES F inal Result INTERFACE SYSTEM Refer to clinic/hospital department * (ABNORMAL) POC ISTAT 8 (10/21/2005 5:34 AM CDT) SPECIMEN TYPE Arterial INTERF FLY SYSTEM Comment: Tidal volume: 560 PEEP: 10 Rate: 12 Pulse OX: 98 Hemoglobin calculated from Hematocrit result FIO2 35 INTERFACE SYSTEM PH 7.37 7.35 - 7.45 Unit INTERFACE SYSTEM PH TEMP CORRECT 7.37 7.35 - 7.45 Unit INTERFACE SYSTEM PCO2 POC 34(L) 35 - 45 mmHg INTERFACE SYSTEM PCO2 TEMP CORRECT 34(L) 35 - 45 mmHg INTERFACE SYSTEM PO2 74(L) 80 - 105 mmHg INTERFACE SYSTEM PO2 TEMP CORRECT 74(L) 80 - 105 mmHg INTERFACE SYSTEM HCO3 (CALC) POC 19.7(L) 22.0 - 26.0 mmol/l INTERFACE SYSTEM BASE EXCESS -6(L) -2 - 3 mmol/l INTERFACE SYSTEM HEMOGLOBIN POC 9.9 3 g/dL 12.0 - 16.0 g/dL INTERFACE SYSTEM HEMATOCRIT ABG 29(L) 38 - 51 % INTER FACE SYSTEM O2 SATURATION 94(L) 95 - 98 % INTERF FLY SYSTEM TCO2 (CALC) POC 21(L) 23 - 27 mmol/l INTERFACE SYSTEM SODIUM 140 138 - 146 mEq/L INTERFACE SYSTEM POTASSIUM 3.7 3.5 - 4.9 mEq/L INTERFACE SYSTEM CALCIUM IONIZED 1.22 1.12 - 1.32 mmol/l INTERFACE SYSTEM GLUCOSE 130(H) 70 - 105 mg/dL INTERFACE SYSTEM 10/21/2005 5:34 AM CDT Horace Mckeon Jr., MD ABG ORDERABLES Final R esult Performing Organization Address [facility] Phone Number INTERFACE SYSTEM Refer to clinic/hospital department * (ABNORMAL) POC GLUCOSE (10/21/2005 5:29 AM CDT) GLUCOSE POC 138(H) 60 - 100 mg/dL INTERFACE SYSTEM 10/21/2005 5:29 AM CDT Horace Mckeon Jr., MD POINT OF CARE TESTING F inal Result Performing Organization Address [facility] Phone Number INTERFACE SYSTEM Refer to clinic/hospital department * (ABNORMAL) POC GLUCOSE (10/20/2005 11:27 PM CDT) GLUCOSE POC 135(H) 60 - 100 mg/dL INTERFACE SYSTEM 10/20/2005 11:2 7 PM CDT Horace Mckeon Jr., MD POINT OF CARE TESTING F inal Result Performing Organization Address [facility] Phone Number INTERFACE SYSTEM Refer to clinic/hospital department * (ABNORMAL) POC GLUCOSE (10/20/2005 5:37 PM CDT) GLUCOSE POC 143(H) 60 - 100 mg/dL INTERFACE SYSTEM 10/20/2005 5:37 PM CDT us Horace Mckeon Jr., MD POINT OF CARE TESTING F inal Result Performing Organization Address [facility] Phone Number INTERFACE SYSTEM Refer to clinic/hospital department * (ABNORMAL) DIFFERENTIAL, MANUAL (10/20/2005 2:02 PM CDT) NEUTROPHILS, SEG 71(H) 36 - 66 % INTERFACE SYSTEM LYMPHOCYTES 23(L) 24 - 44 % INTERFAC E SYSTEM MONOCYTE 5 4 - 10 % INTERFACE SYSTEM EOSINOPHILS 1 0 - 3 % INTERFAC E SYSTEM PLATELET EST. Decreased( A) Normal INTERFACE SYSTEM RBC MORPHOLOGY Normal Normal INTER FACE SYSTEM 10/20/2005 2:02 PM CDT Horace Mckeon Jr., MD HEMATOLOGY ORDERABLES C OM Final Result INTERFACE SYSTEM Refer to clinic/hospital department * (ABNORMAL) CBC WITH DIFFERENTIAL (10/20/2005 2:02 PM CDT) WBC 8.0 4.5 - 13.5 K/ul INTERFACE SYSTEM RBC 2.87(L) 4.30 - 5.30 Mil/ul INTERFACE SYSTEM HEMOGLOBIN 8.2(L) 12.0 - 16.0 g/dL INTERFACE SYSTEM HEMATOCRIT 24.1(L) 36.0 - 46.0 % INTERFACE SYSTEM MCV 84.0 78.0 - 102.0 Fl INTERFACE SYSTEM MCH 28.6 26.0 - 32.0 pg INTERFACE SYSTEM MCHC 34.0 33.0 - 35.0 g/dL INTERFACE SYSTEM RDW 14.7(H) 11.0 - 14.5 % INTERFACE SYSTEM PLATELETS 68(L) 140 - 440 K/ul INTERFACE SYSTEM MPV 10.0 8.9 - 12.8 Fl INTERFACE SYSTEM 10/20/2005 2:02 PM CDT Horace Mckeon Jr., MD HEMATOLOGY ORDERABLES F inal Result Performing Organization Address [facility]/ZIP Co de Phone Number INTERFACE SYSTEM Refer to clinic/hospital department * (ABNORMAL) POC ISTAT EG 7+ (10/20/2005 12:08 PM CDT) SPECIMEN TYPE Arterial INTERF FLY SYSTEM Comment: Pulse OX: 98 Hemoglobin calculated from Hematocrit result FIO2 35 INTERFACE SYSTEM PH 7.40 7.35 - 7.45 Unit INTERFACE SYSTEM PH TEMP CORRECT 7.40 7.35 - 7.45 Unit INTERFACE SYSTEM PCO2 POC 31(L) 35 - 45 mmHg INTERFACE SYSTEM PCO2 TEMP CORRECT 31(L) 35 - 45 mmHg INTERFACE SYSTEM PO2 74(L) 80 - 105 mmHg INTERFACE SYSTEM PO2 TEMP CORRECT 74(L) 80 - 105 mmHg INTERFACE SYSTEM HCO3 (CALC) POC 19.1(L) 22.0 - 26.0 mmol/l INTERFACE SYSTEM BASE EXCESS -6(L) -2 - 3 mmol/l INTERFACE SYSTEM HEMOGLOBIN POC 8.2 3 g/dL 12.0 - 16.0 g/dL INTERFACE SYSTEM HEMATOCRIT ABG 24(L) 38 - 51 % INTER FACE SYSTEM O2 SATURATION 95 95 - 98 % INTERF FLY SYSTEM TCO2 (CALC) POC 20(L) 23 - 27 mmol/l INTERFACE SYSTEM SODIUM 141 138 - 146 mEq/L INTERFACE SYSTEM POTASSIUM 3.3(L) 3.5 - 4.9 mEq/L INTERFACE SYSTEM CALCIUM IONIZED 1.23 1.12 - 1.32 mmol/l INTERFACE SYSTEM 10/20/2005 12:0 8 PM CDT Horace Mckeon Jr., MD POINT OF CARE TESTING C OM Final Result Performing Organization Address [facility] de Phone Number INTERFACE SYSTEM Refer to clinic/hospital department * (ABNORMAL) POC GLUCOSE (10/20/2005 12:02 PM CDT) GLUCOSE POC 136(H) 60 - 100 mg/dL INTERFACE SYSTEM 10/20/2005 12:0 2 PM CDT Horace Mckeon Jr., MD POINT OF CARE TESTING F inal Result Performing Organization Address [facility] Co de Phone Number INTERFACE SYSTEM Refer to clinic/hospital department * (ABNORMAL) POC ISTAT 8 (10/20/2005 10:14 AM CDT) SPECIMEN TYPE Arterial INTERF FLY SYSTEM Comment: Sample not collected by [facility] Tidal volume: 560 PEEP: 10 Rate: 16 Pulse OX: 97 Hemoglobin calculated from Hematocrit result FIO2 35 INTERFACE SYSTEM PH 7.43 7.35 - 7.45 Unit INTERFACE SYSTEM PH TEMP CORRECT 7.43 7.35 - 7.45 Unit INTERFACE SYSTEM PCO2 POC 27(L) 35 - 45 mmHg INTERFACE SYSTEM PCO2 TEMP CORRECT 27(L) 35 - 45 mmHg INTERFACE SYSTEM PO2 67(L) 80 - 105 mmHg INTERFACE SYSTEM PO2 TEMP CORRECT 67(L) 80 - 105 mmHg INTERFACE SYSTEM HCO3 (CALC) POC 18.0(L) 22.0 - 26.0 mmol/l INTERFACE SYSTEM BASE EXCESS -6(L) -2 - 3 mmol/l INTERFACE SYSTEM HEMOGLOBIN POC 8.2 3 g/dL 12.0 - 16.0 g/dL INTERFACE SYSTEM HEMATOCRIT ABG 24(L) 38 - 51 % INTER FACE SYSTEM O2 SATURATION 94(L) 95 - 98 % INTERF FLY SYSTEM TCO2 (CALC) POC 19(L) 23 - 27 mmol/l INTERFACE SYSTEM SODIUM 139 138 - 146 mEq/L INTERFACE SYSTEM POTASSIUM 3.3(L) 3.5 - 4.9 mEq/L INTERFACE SYSTEM CALCIUM IONIZED 1.20 1.12 - 1.32 mmol/l INTERFACE SYSTEM GLUCOSE 123(H) 70 - 105 mg/dL INTERFACE SYSTEM 10/20/2005 10:1 4 AM CDT us Horace Mckeon Jr., MD ABG ORDERABLES Final R esult Performing Organization Address [facility] Co de Phone Number INTERFACE SYSTEM Refer to clinic/hospital department * (ABNORMAL) DIFFERENTIAL, MANUAL (10/20/2005 6:25 AM CDT) NEUTROPHILS, SEG 69(H) 36 - 66 % INTERFACE SYSTEM BANDS 10(H) 0 - 6 % INTERFACE SYSTEM LYMPHOCYTES 18(L) 24 - 44 % INTERFAC E SYSTEM MONOCYTE 3(L) 4 - 10 % INTERFACE SYSTEM PLATELET EST. Decreased( A) Normal INTERFACE SYSTEM RBC MORPHOLOGY Normal Normal INTER FACE SYSTEM 10/20/2005 6:25 AM CDT Horace Mckeon Jr., MD HEMATOLOGY ORDERABLES C OM Final Result Performing Organization Address [facility] Co de Phone Number INTERFACE SYSTEM Refer to clinic/hospital department * (ABNORMAL) CBC WITH DIFFERENTIAL (10/20/2005 6:25 AM CDT) WBC 9.8 4.5 - 13.5 K/ul INTERFACE SYSTEM RBC 3.26(L) 4.30 - 5.30 Mil/ul INTERFACE SYSTEM HEMOGLOBIN 9.5(L) 12.0 - 16.0 g/dL INTERFACE SYSTEM HEMATOCRIT 27.2(L) 36.0 - 46.0 % INTERFACE SYSTEM MCV 83.4 78.0 - 102.0 Fl INTERFACE SYSTEM MCH 29.1 26.0 - 32.0 pg INTERFACE SYSTEM MCHC 34.9 33.0 - 35.0 g/dL INTERFACE SYSTEM RDW 14.4 11.0 - 14.5 % INTERFACE SYSTEM PLATELETS 87(L) 140 - 440 K/ul INTERFACE SYSTEM MPV 10.6 8.9 - 12.8 Fl INTERFACE SYSTEM 10/20/2005 6:25 AM CDT us Horace Mckeon Jr., MD HEMATOLOGY ORDERABLES F inal Result INTERFACE SYSTEM Refer to clinic/hospital department * (ABNORMAL) POC ISTAT 8 (10/20/2005 6:24 AM CDT) SPECIMEN TYPE Arterial INTERF FLY SYSTEM Comment: Sample not collected by [facility]S Pulse OX: 93 Hemoglobin calculated from Hematocrit result FIO2 35 INTERFACE SYSTEM PH 7.43 7.35 - 7.45 Unit INTERFACE SYSTEM PH TEMP CORRECT 7.43 7.35 - 7.45 Unit INTERFACE SYSTEM PCO2 POC 28(L) 35 - 45 mmHg INTERFACE SYSTEM PCO2 TEMP CORRECT 28(L) 35 - 45 mmHg INTERFACE SYSTEM PO2 74(L) 80 - 105 mmHg INTERFACE SYSTEM PO2 TEMP CORRECT 74(L) 80 - 105 mmHg INTERFACE SYSTEM HCO3 (CALC) POC 18.2(L) 22.0 - 26.0 mmol/l INTERFACE SYSTEM BASE EXCESS -6(L) -2 - 3 mmol/l INTERFACE SYSTEM HEMOGLOBIN POC 8.5 3 g/dL 12.0 - 16.0 g/dL INTERFACE SYSTEM HEMATOCRIT ABG 25(L) 38 - 51 % INTER FACE SYSTEM O2 SATURATION 95 95 - 98 % INTERF FLY SYSTEM TCO2 (CALC) POC 19(L) 23 - 27 mmol/l INTERFACE SYSTEM SODIUM 141 138 - 146 mEq/L INTERFACE SYSTEM POTASSIUM 3.3(L) 3.5 - 4.9 mEq/L INTERFACE SYSTEM CALCIUM IONIZED 1.22 1.12 - 1.32 mmol/l INTERFACE SYSTEM GLUCOSE 123(H) 70 - 105 mg/dL INTERFACE SYSTEM 10/20/2005 6:24 AM CDT Horace Mckeon Jr., MD ABG ORDERABLES Final R esult Performing Organization Address [facility] de Phone Number INTERFACE SYSTEM Refer to clinic/hospital department * (ABNORMAL) BASIC METABOLIC PANEL (10/20/2005 6:24 AM CDT) GLUCOSE 128(H) 70 - 110 mg/dL INTERFACE SYSTEM BUN 8 7 - 17 mg/dL INTERFACE SYSTEM CREATININE 0.4(L) 0.7 - 1.2 mg/dL INTERFACE SYSTEM SODIUM 143 136 - 145 mEq/L INTERFACE SYSTEM POTASSIUM 3.4(L) 3.5 - 5.0 mEq/L INTERFACE SYSTEM CHLORIDE 118(H) 95 - 110 mEq/L INTERFACE SYSTEM CO2 20(L) 22 - 32 mmol/l INTERFACE SYSTEM ANION GAP 8(L) 9 - 20 mEq/L INTERFACE SYSTEM OSMOLALITY, CALCULATED 292 275 - 295 mOsm/Kg INTERFACE SYSTEM CALCIUM 7.6(L) 8.4 - 10.5 mg/dL INTERFACE SYSTEM 10/20/2005 6:24 AM CDT Horace Mckeon Jr., MD CHEMISTRY ORDERABLES Fi nal Result Performing Organization Address [facility] Phone Number INTERFACE SYSTEM Refer to clinic/hospital department * (ABNORMAL) PT AND APTT (10/20/2005 6:24 AM CDT) PROTIME 19.2(H) 12.6 - 14.9 Secs INTERFACE SYSTEM Comment: As of 04 note change in normal range. INR 1.6 INTERFACE SYSTEM Comment: Expected Values for INR: DVT/PE Goal INR 2.5; range 2.0 - 3.0 Valve Replacement Tissue Goal INR 2.5; range 2.0 - 3.0 Mechanical Goal INR 3.0; range 2.5 - 3.5 POST-IL Goal INR 2.5; range 2.0 - 3.0 or Goal 3.0; range 2.5 - 3.5 Atrial Fibrillation Goal INR 2.5; range 2.0 - 3.0 Ischemic Stroke Goal INR 2.5; range 2.0 - 3.0 For additional information see Guidelines for Anticoagulation available from the pharmacy [facility] PTT 36.4(H) 21.5 - 34.4 Secs INTERFACE SYSTEM Comment: Therapeutic Range: Hi-level PE/DVT heparin protocol 90.1 -110 sec Lo-level PE/DVT heparin protocol 75.1 - 95 sec Cardiac Heparin Protocol 85.1 - 100 sec Neuro Heparin Protocol 70.1 - 85 sec As of 03/28/05 note change in APTT Normal Range. 10/20/2005 6:24 AM CDT Horace Mckeon Jr., MD HEMATOLOGY ORDERABLES F inal Result Performing Organization Address [facility] Phone Number INTERFACE SYSTEM Refer to clinic/hospital department * (ABNORMAL) POC GLUCOSE (10/20/2005 6:17 AM CDT) Pathologist [facility] GLUCOSE POC 134(H) 60 - 100 mg/dL INTERFACE SYSTEM 10/20/2005 6:17 AM CDT us Horace Mckeon Jr., MD POINT OF CARE TESTING F inal Result Performing Organization Address [facility] Phone Number INTERFACE SYSTEM Refer to clinic/hospital department * (ABNORMAL) POC ISTAT EG 7+ (10/20/2005 12:01 AM CDT) SPECIMEN TYPE Arterial INTERF FLY SYSTEM Comment: Pulse OX: 97 Hemoglobin calculated from Hematocrit result FIO2 30 INTERFACE SYSTEM TEMPERATURE 101.8 DegC INTERFAC E SYSTEM PH 7.51(H) 7.35 - 7.45 Unit INTERFACE SYSTEM PH TEMP CORRECT 7.48(H) 7.35 - 7.45 Unit INTERFACE SYSTEM PCO2 POC 23(L) 35 - 45 mmHg INTERFACE SYSTEM PCO2 TEMP CORRECT 25(L) 35 - 45 mmHg INTERFACE SYSTEM PO2 71(L) 80 - 105 mmHg INTERFACE SYSTEM PO2 TEMP CORRECT 80 80 - 105 mmHg INTERFACE SYSTEM HCO3 (CALC) POC 18.3(L) 22.0 - 26.0 mmol/l INTERFACE SYSTEM BASE EXCESS -5(L) -2 - 3 mmol/l INTERFACE SYSTEM HEMOGLOBIN POC 9.2 3 g/dL 12.0 - 16.0 g/dL INTERFACE SYSTEM HEMATOCRIT ABG 27(L) 38 - 51 % INTER FACE SYSTEM O2 SATURATION 96 95 - 98 % INTERF FLY SYSTEM TCO2 (CALC) POC 19(L) 23 - 27 mmol/l INTERFACE SYSTEM SODIUM 143 138 - 146 mEq/L INTERFACE SYSTEM POTASSIUM 3.1(L) 3.5 - 4.9 mEq/L INTERFACE SYSTEM CALCIUM IONIZED 1.19 1.12 - 1.32 mmol/l INTERFACE SYSTEM 10/20/2005 12:0 1 AM CDT Horace Mckeon Jr., MD POINT OF CARE TESTING C OM Final Result Performing Organization Address [facility] de Phone Number INTERFACE SYSTEM Refer to clinic/hospital department * (ABNORMAL) POC GLUCOSE (10/19/2005 11:55 PM CDT) GLUCOSE POC 134(H) 60 - 100 mg/dL INTERFACE SYSTEM 10/19/2005 11:5 5 PM CDT Horace Mckeon Jr., MD POINT OF CARE TESTING F inal Result Performing Organization Address [facility] Phone Number INTERFACE SYSTEM Refer to clinic/hospital department * (ABNORMAL) POC ISTAT EG 7+ (10/19/2005 5:35 PM CDT) SPECIMEN TYPE Arterial INTERF FLY SYSTEM Comment: Pulse OX: 100 Hemoglobin calculated from Hematocrit result FIO2 40 INTERFACE SYSTEM TEMPERATURE 101.1 DegC INTERFAC E SYSTEM PH 7.45 7.35 - 7.45 Unit INTERFACE SYSTEM PH TEMP CORRECT 7.43 7.35 - 7.45 Unit INTERFACE SYSTEM PCO2 POC 28(L) 35 - 45 mmHg INTERFACE SYSTEM PCO2 TEMP CORRECT 29(L) 35 - 45 mmHg INTERFACE SYSTEM PO2 125(H) 80 - 105 mmHg INTERFACE SYSTEM PO2 TEMP CORRECT 134(H) 80 - 105 mmHg INTERFACE SYSTEM HCO3 (CALC) POC 19.1(L) 22.0 - 26.0 mmol/l INTERFACE SYSTEM BASE EXCESS -5(L) -2 - 3 mmol/l INTERFACE SYSTEM HEMOGLOBIN POC 7.5 3 g/dL 12.0 - 16.0 g/dL INTERFACE SYSTEM HEMATOCRIT ABG 22(L) 38 - 51 % INTER FACE SYSTEM O2 SATURATION 99(H) 95 - 98 % INTERF FLY SYSTEM TCO2 (CALC) POC 20(L) 23 - 27 mmol/l INTERFACE SYSTEM SODIUM 143 138 - 146 mEq/L INTERFACE SYSTEM POTASSIUM 3.3(L) 3.5 - 4.9 mEq/L INTERFACE SYSTEM CALCIUM IONIZED 1.18 1.12 - 1.32 mmol/l INTERFACE SYSTEM 10/19/2005 5:35 PM CDT Horace Mckeon Jr., MD POINT OF CARE TESTING C OM Final Result Performing Organization Address [facility] de Phone Number INTERFACE SYSTEM Refer to clinic/hospital department * (ABNORMAL) POC GLUCOSE (10/19/2005 5:27 PM CDT) GLUCOSE POC 156(H) 60 - 100 mg/dL INTERFACE SYSTEM COMMENT POC Follow Protocol INTERFACE SYSTEM 10/19/2005 5:27 PM CDT Horace Mkceon Jr., MD POINT OF CARE TESTING F inal Result Performing Organization Address [facility] Phone Number INTERFACE SYSTEM Refer to clinic/hospital department * (ABNORMAL) POC GLUCOSE (10/19/2005 2:38 PM CDT) GLUCOSE POC 158(H) 60 - 100 mg/dL INTERFACE SYSTEM 10/19/2005 2:38 PM CDT Horace Mckeon Jr., MD POINT OF CARE TESTING F inal Result Performing Organization Address [facility] de Phone Number INTERFACE SYSTEM Refer to clinic/hospital department * (ABNORMAL) HEMOGLOBIN AND HEMATOCRIT (10/19/2005 12:27 PM CDT) HEMOGLOBIN 7.2(L) 12.0 - 16.0 g/dL INTERFACE SYSTEM HEMATOCRIT 21.6(L) 36.0 - 46.0 % INTERFACE SYSTEM 10/19/2005 12:2 7 PM CDT us Kelli Rios MD HEMATOLOGY ORDERABLES Final Result INTERFACE SYSTEM Refer to clinic/hospital department * (ABNORMAL) POC ISTAT 8 (10/19/2005 12:01 PM CDT) SPECIMEN TYPE Arterial INTERF FLY SYSTEM Comment: PEEP: 10 Pressure Support: 10 Pulse OX: 100 Hemoglobin calculated from Hematocrit result FIO2 50 INTERFACE SYSTEM TEMPERATURE 100.7 DegC INTERFAC E SYSTEM PH 7.35 7.35 - 7.45 Unit INTERFACE SYSTEM PH TEMP CORRECT 7.33(L) 7.35 - 7.45 Unit INTERFACE SYSTEM PCO2 POC 35 35 - 45 mmHg INTERFACE SYSTEM PCO2 TEMP CORRECT 37 35 - 45 mmHg INTERFACE SYSTEM PO2 187(H) 80 - 105 mmHg INTERFACE SYSTEM PO2 TEMP CORRECT 193(H) 80 - 105 mmHg INTERFACE SYSTEM HCO3 (CALC) POC 19.0(L) 22.0 - 26.0 mmol/l INTERFACE SYSTEM BASE EXCESS -7(L) -2 - 3 mmol/l INTERFACE SYSTEM HEMOGLOBIN POC 6.5 3 g/dL 12.0 - 16.0 g/dL INTERFACE SYSTEM HEMATOCRIT ABG 19(L) 38 - 51 % INTER FACE SYSTEM O2 SATURATION 100(H) 95 - 98 % INTERF FLY SYSTEM TCO2 (CALC) POC 20(L) 23 - 27 mmol/l INTERFACE SYSTEM SODIUM 142 138 - 146 mEq/L INTERFACE SYSTEM POTASSIUM 3.4(L) 3.5 - 4.9 mEq/L INTERFACE SYSTEM CALCIUM IONIZED 1.22 1.12 - 1.32 mmol/l INTERFACE SYSTEM GLUCOSE 158(H) 70 - 105 mg/dL INTERFACE SYSTEM 10/19/2005 12:0 1 PM CDT us Horace Mckeon Jr., MD ABG ORDERABLES Final R esult INTERFACE SYSTEM Refer to clinic/hospital department * (ABNORMAL) DIFFERENTIAL, MANUAL (10/19/2005 5:42 AM CDT) NEUTROPHILS, SEG 80(H) 36 - 66 % INT ERFACE SYSTEM BANDS 11(H) 0 - 6 % INTERFACE SYSTEM LYMPHOCYTES 3(L) 24 - 44 % INTERFAC E SYSTEM MONOCYTE 6 4 - 10 % INTERFACE SYSTEM PLATELET EST. Normal Normal INTERF FLY SYSTEM RBC MORPHOLOGY Normal Normal INTER FACE SYSTEM 10/19/2005 5:42 AM CDT us Horace Mckeon Jr., MD HEMATOLOGY ORDERABLES C OM Final Result INTERFACE SYSTEM Refer to clinic/hospital department * (ABNORMAL) COMPREHENSIVE METABOLIC PANEL (10/19/2005 5:42 AM CDT) GLUCOSE 248(H) 70 - 110 mg/dL INTERFACE SYSTEM BUN 13 7 - 17 mg/dL INTERFACE SYSTEM CREATININE 1.0 0.7 - 1.2 mg/dL INTERFACE SYSTEM SODIUM 144 136 - 145 mEq/L INTERFACE SYSTEM POTASSIUM 3.8 3.5 - 5.0 mEq/L INTERFACE SYSTEM CHLORIDE 116(H) 95 - 110 mEq/L INTERFACE SYSTEM CO2 17(L) 22 - 32 mmol/l INTERFACE SYSTEM ANION GAP 15 9 - 20 mEq/L INTERFACE SYSTEM OSMOLALITY, CALCULATED 303(H) 275 - 295 mOsm/Kg INTERFACE SYSTEM CALCIUM 7.6(L) 8.4 - 10.5 mg/dL INTERFACE SYSTEM TOTAL PROTEIN 4.2(L) 6.3 - 8.2 g/dL INTERFACE SYSTEM ALBUMIN 2.5(L) 3.5 - 5.0 g/dL INTERFACE SYSTEM GLOBULIN (CALC) 1.7(L) 2.4 - 3.9 g/dL INTERFACE SYSTEM ALBUMIN/GLOBULIN RATIO 1.5 1.0 - 2.3 INTERFACE SYSTEM ALKALINE PHOSPHATASE 59 39 - 126 U/L INTERFACE SYSTEM Comment: As of 05 the [facility] has changed testing methods. The new reference range is 25-100 The old referance range was 38-126 AST 52(H) 8 - 33 U/L INTERFACE SYSTEM Comment: As of 05 the [facility] has changed testing methods. The new reference range is 8-33 The old referance range was Males 17-59 Females 14-36 ALT 29 4 - 36 IU/L INTERFACE SYSTEM Comment: As of 05 the [facility] has changed testing methods. The new reference range is 4-36 The old referance range was Males 21-72 Females 9-52 BILIRUBIN TOTAL 0.8 0.3 - 1.2 mg/dL INTERFACE SYSTEM Comment: As of 05 the [facility] has changed testing methods. The new reference range is 0.3-1.2 The old referance range was 0.2-1.4 10/19/2005 5:42 AM CDT Horace Mckeon Jr., MD CHEMISTRY ORDERABLES Fi nal Result Performing Organization Address [facility] Phone Number INTERFACE SYSTEM Refer to clinic/hospital department * (ABNORMAL) DIC PROFILE (10/19/2005 5:42 AM CDT) PLATELETS 158 140 - 440 K/ul INTERFACE SYSTEM PROTIME 17.4(H) 12.6 - 14.9 Secs INTERFACE SYSTEM Comment: As of 04 note change in normal range. THROMBIN TIME 15.0 15.0 - 21.0 Secs INTERFACE SYSTEM PTT 21.4(L) 21.5 - 34.4 Secs INTERFACE SYSTEM Comment: Therapeutic Range: Hi-level PE/DVT heparin protocol 90.1 -110 sec Lo-level PE/DVT heparin protocol 75.1 - 95 sec Cardiac Heparin Protocol 85.1 - 100 sec Neuro Heparin Protocol 70.1 - 85 sec As of 03/28/05 note change in APTT Normal Range. SCHISTOCYTES None Seen None Seen INTERFA CE SYSTEM FIBRINOGEN 154(L) 200 - 400 mg/dL INTERFACE SYSTEM D-DIMER QUANT 10.8(H) 0.0 - 0.5 mcg/mL INTERFACE SYSTEM SOLUBLE FIBRIN MONOMERS Negative Negative INTERFACE SYSTEM 10/19/2005 5:42 AM CDT Horace Mckeon Jr., MD HEMATOLOGY ORDERABLES F inal Result Performing Organization Address [facility] Phone Number INTERFACE SYSTEM Refer to clinic/hospital department * (ABNORMAL) CBC WITH DIFFERENTIAL (10/19/2005 5:42 AM CDT) WBC 17.8(H) 4.5 - 13.5 K/ul INTERFACE SYSTEM RBC 3.28(L) 4.30 - 5.30 Mil/ul INTERFACE SYSTEM HEMOGLOBIN 9.6(L) 12.0 - 16.0 g/dL INTERFACE SYSTEM HEMATOCRIT 29.1(L) 36.0 - 46.0 % INTERFACE SYSTEM MCV 88.7 78.0 - 102.0 Fl INTERFACE SYSTEM MCH 29.3 26.0 - 32.0 pg INTERFACE SYSTEM MCHC 33.0 33.0 - 35.0 g/dL INTERFACE SYSTEM RDW 14.0 11.0 - 14.5 % INTERFACE SYSTEM PLATELETS 158 140 - 440 K/ul INTERFACE SYSTEM MPV 10.3 8.9 - 12.8 Fl INTERFACE SYSTEM 10/19/2005 5:42 AM CDT us Horace Mckeon Jr., MD HEMATOLOGY ORDERABLES F inal Result INTERFACE SYSTEM Refer to clinic/hospital department * (ABNORMAL) POC ISTAT 8 (10/19/2005 5:37 AM CDT) SPECIMEN TYPE Arterial INTERF FLY SYSTEM Comment: Pulse OX: 100 Hemoglobin calculated from Hematocrit result FIO2 50 INTERFACE SYSTEM PH 7.29(L) 7.35 - 7.45 Unit INTERFACE SYSTEM PH TEMP CORRECT 7.29(L) 7.35 - 7.45 Unit INTERFACE SYSTEM PCO2 POC 28(L) 35 - 45 mmHg INTERFACE SYSTEM PCO2 TEMP CORRECT 28(L) 35 - 45 mmHg INTERFACE SYSTEM PO2 114(H) 80 - 105 mmHg INTERFACE SYSTEM PO2 TEMP CORRECT 114(H) 80 - 105 mmHg INTERFACE SYSTEM HCO3 (CALC) POC 13.2(L) 22.0 - 26.0 mmol/l INTERFACE SYSTEM BASE EXCESS -13(L) -2 - 3 mmol/l INTERFACE SYSTEM HEMOGLOBIN POC 8.2 3 g/dL 12.0 - 16.0 g/dL INTERFACE SYSTEM HEMATOCRIT ABG 24(L) 38 - 51 % INTER FACE SYSTEM O2 SATURATION 98 95 - 98 % INTERF FLY SYSTEM TCO2 (CALC) POC 14(L) 23 - 27 mmol/l INTERFACE SYSTEM SODIUM 147(H) 138 - 146 mEq/L INTERFACE SYSTEM POTASSIUM 3.3(L) 3.5 - 4.9 mEq/L INTERFACE SYSTEM CALCIUM IONIZED 0.98(L) 1.12 - 1.32 mmol/l INTERFACE SYSTEM GLUCOSE 225(H) 70 - 105 mg/dL INTERFACE SYSTEM 10/19/2005 5:37 AM CDT MD ZAN Andre Jr. ORDERABLES Final R esult Performing Organization Address [facility] de Phone Number INTERFACE SYSTEM Refer to clinic/hospital department * (ABNORMAL) POC ISTAT 8 (10/19/2005 3:21 AM CDT) SPECIMEN TYPE Arterial INTERF FLY SYSTEM Comment: Pulse OX: 100 Hemoglobin calculated from Hematocrit result FIO2 50 INTERFACE SYSTEM PH 7.29(L) 7.35 - 7.45 Unit INTERFACE SYSTEM PH TEMP CORRECT 7.29(L) 7.35 - 7.45 Unit INTERFACE SYSTEM PCO2 POC 30(L) 35 - 45 mmHg INTERFACE SYSTEM PCO2 TEMP CORRECT 30(L) 35 - 45 mmHg INTERFACE SYSTEM PO2 110(H) 80 - 105 mmHg INTERFACE SYSTEM PO2 TEMP CORRECT 110(H) 80 - 105 mmHg INTERFACE SYSTEM HCO3 (CALC) POC 14.4(L) 22.0 - 26.0 mmol/l INTERFACE SYSTEM BASE EXCESS -12(L) -2 - 3 mmol/l INTERFACE SYSTEM HEMOGLOBIN POC 9.2 3 g/dL 12.0 - 16.0 g/dL INTERFACE SYSTEM HEMATOCRIT ABG 27(L) 38 - 51 % INTER FACE SYSTEM O2 SATURATION 98 95 - 98 % INTERF FLY SYSTEM TCO2 (CALC) POC 15(L) 23 - 27 mmol/l INTERFACE SYSTEM SODIUM 143 138 - 146 mEq/L INTERFACE SYSTEM POTASSIUM 3.8 3.5 - 4.9 mEq/L INTERFACE SYSTEM CALCIUM IONIZED 1.12 1.12 - 1.32 mmol/l INTERFACE SYSTEM GLUCOSE 278(H) 70 - 105 mg/dL INTERFACE SYSTEM 10/19/2005 3:21 AM CDT MD ZAN Andre Jr. ORDERABLES Final R esult Performing Organization Address [facility] Co de Phone Number INTERFACE SYSTEM Refer to clinic/hospital department * (ABNORMAL) POC ISTAT 8 (10/19/2005 12:24 AM CDT) SPECIMEN TYPE Arterial INTERF FLY SYSTEM Comment: Critical result performed at the point of care. Pulse OX: 100 Hemoglobin calculated from Hematocrit result FIO2 100 INTERFACE SYSTEM PH 7.21(AA) 7.35 - 7.45 Unit INTERFACE SYSTEM PH TEMP CORRECT 7.21(AA) 7.35 - 7.45 Unit INTERFACE SYSTEM PCO2 POC 44 35 - 45 mmHg INTERFACE SYSTEM PCO2 TEMP CORRECT 44 35 - 45 mmHg INTERFACE SYSTEM PO2 314(H) 80 - 105 mmHg INTERFACE SYSTEM PO2 TEMP CORRECT 314(H) 80 - 105 mmHg INTERFACE SYSTEM HCO3 (CALC) POC 17.4(L) 22.0 - 26.0 mmol/l INTERFACE SYSTEM BASE EXCESS -10(L) -2 - 3 mmol/l INTERFACE SYSTEM HEMOGLOBIN POC 8.8 3 g/dL 12.0 - 16.0 g/dL INTERFACE SYSTEM HEMATOCRIT ABG 26(L) 38 - 51 % INTER FACE SYSTEM O2 SATURATION 100(H) 95 - 98 % INTERF FLY SYSTEM TCO2 (CALC) POC 19(L) 23 - 27 mmol/l INTERFACE SYSTEM SODIUM 142 138 - 146 mEq/L INTERFACE SYSTEM POTASSIUM 3.8 3.5 - 4.9 mEq/L INTERFACE SYSTEM CALCIUM IONIZED 1.14 1.12 - 1.32 mmol/l INTERFACE SYSTEM GLUCOSE 266(H) 70 - 105 mg/dL INTERFACE SYSTEM 10/19/2005 12:2 4 AM CDT us Horace cMkeon Jr., MD ABG ORDERABLES Final R esult INTERFACE SYSTEM Refer to clinic/hospital department * (ABNORMAL) BASIC METABOLIC PANEL (10/18/2005 9:58 PM CDT) GLUCOSE 268(H) 70 - 110 mg/dL INTERFACE SYSTEM BUN 9 7 - 17 mg/dL INTERFACE SYSTEM CREATININE 0.7 0.7 - 1.2 mg/dL INTERFACE SYSTEM SODIUM 145 136 - 145 mEq/L INTERFACE SYSTEM POTASSIUM 3.6 3.5 - 5.0 mEq/L INTERFACE SYSTEM CHLORIDE 116(H) 95 - 110 mEq/L INTERFACE SYSTEM CO2 16(L) 22 - 32 mmol/l INTERFACE SYSTEM ANION GAP 17 9 - 20 mEq/L INTERFACE SYSTEM OSMOLALITY, CALCULATED 304(H) 275 - 295 mOsm/Kg INTERFACE SYSTEM CALCIUM 6.2(AA) 8.4 - 10.5 mg/dL INTERFACE SYSTEM Comment:Calcium not critical due to hypoproteinemia 10/18/2005 9:58 PM CDT Horace Mckeon Jr., MD CHEMISTRY ORDERABLES Fi nal Result INTERFACE SYSTEM Refer to clinic/hospital department * (ABNORMAL) CBC WITH DIFFERENTIAL (10/18/2005 9:58 PM CDT) WBC 16.7(H) 4.5 - 13.5 K/ul INTERFACE SYSTEM RBC 2.80(L) 4.30 - 5.30 Mil/ul INTERFACE SYSTEM HEMOGLOBIN 8.2(L) 12.0 - 16.0 g/dL INTERFACE SYSTEM HEMATOCRIT 25.6(L) 36.0 - 46.0 % INTERFACE SYSTEM MCV 91.4 78.0 - 102.0 Fl INTERFACE SYSTEM MCH 29.3 26.0 - 32.0 pg INTERFACE SYSTEM MCHC 32.0(L) 33.0 - 35.0 g/dL INTERFACE SYSTEM RDW 13.7 11.0 - 14.5 % INTERFACE SYSTEM PLATELETS 181 140 - 440 K/ul INTERFACE SYSTEM MPV 9.6 8.9 - 12.8 Fl INTERFACE SYSTEM NEUTROPHILS 84.4(H) 42.2 - 75.2 % INTERFACE SYSTEM LYMPHOCYTES 7.0(L) 24.0 - 44.0 % INTERFACE SYSTEM MONOCYTES 8.5(H) 4.0 - 5.0 % INTERFACE SYSTEM BASOPHILS 0.1 0.0 - 1.0 % INTERFACE SYSTEM NEUTROPHIL ABSOLUTE 14.1(H) 2.0 - 8.0 K/uL INTERFACE SYSTEM LYMPHOCYTE ABSOLUTE 1.2 1.2 - 4.0 K/ul INTERFACE SYSTEM MONOCYTE ABSOLUTE 1.4(H) 0.1 - 0.6 K/ul INTERFACE SYSTEM BASOPHILS ABSOLUTE 0.0 0.0 - 0.2 K/ul INTERFACE SYSTEM 10/18/2005 9:58 PM CDT us Horace Mckeon Jr., MD HEMATOLOGY ORDERABLES F inal Result INTERFACE SYSTEM Refer to clinic/hospital department * (ABNORMAL) DIC PROFILE (10/18/2005 9:58 PM CDT) PROTIME 20.1(H) 12.6 - 14.9 Secs INTERFACE SYSTEM Comment: As of 04 note change in normal range. THROMBIN TIME 16.4 15.0 - 21.0 Secs INTERFACE SYSTEM PTT 37.1(H) 21.5 - 34.4 Secs INTERFACE SYSTEM Comment: Therapeutic Range: Hi-level PE/DVT heparin protocol 90.1 -110 sec Lo-level PE/DVT heparin protocol 75.1 - 95 sec Cardiac Heparin Protocol 85.1 - 100 sec Neuro Heparin Protocol 70.1 - 85 sec As of 03/28/05 note change in APTT Normal Range. FIBRINOGEN 170(L) 200 - 400 mg/dL INTERFACE SYSTEM D-DIMER QUANT 15.9(H) 0.0 - 0.5 mcg/mL INTERFACE SYSTEM SCHISTOCYTES None Seen None Seen INTERFA CE SYSTEM PLATELETS 181 140 - 440 K/ul INTERFACE SYSTEM SOLUBLE FIBRIN MONOMERS Negative Negative INTERFACE SYSTEM 10/18/2005 9:58 PM CDT Horace Mckeon Jr., MD HEMATOLOGY ORDERABLES F inal Result INTERFACE SYSTEM Refer to clinic/hospital department * (ABNORMAL) POC ISTAT EG 7+ (10/18/2005 9:37 PM CDT) SPECIMEN TYPE Arterial INTERF FLY SYSTEM Comment: Critical result performed at the point of care. Hemoglobin calculated from Hematocrit result FIO2 100 INTERFACE SYSTEM PH 7.11(AA) 7.35 - 7.45 Unit INTERFACE SYSTEM PH TEMP CORRECT 7.11(AA) 7.35 - 7.45 Unit INTERFACE SYSTEM PCO2 POC 40 35 - 45 mmHg INTERFACE SYSTEM PCO2 TEMP CORRECT 40 35 - 45 mmHg INTERFACE SYSTEM PO2 446(H) 80 - 105 mmHg INTERFACE SYSTEM PO2 TEMP CORRECT 446(H) 80 - 105 mmHg INTERFACE SYSTEM HCO3 (CALC) POC 12.7(L) 22.0 - 26.0 mmol/l INTERFACE SYSTEM BASE EXCESS -17(L) -2 - 3 mmol/l INTERFACE SYSTEM HEMOGLOBIN POC 8.5 3 g/dL 12.0 - 16.0 g/dL INTERFACE SYSTEM HEMATOCRIT ABG 25(L) 38 - 51 % INTER FACE SYSTEM O2 SATURATION 100(H) 95 - 98 % INTERF FLY SYSTEM TCO2 (CALC) POC 14(L) 23 - 27 mmol/l INTERFACE SYSTEM SODIUM 140 138 - 146 mEq/L INTERFACE SYSTEM POTASSIUM 5.1(H) 3.5 - 4.9 mEq/L INTERFACE SYSTEM CALCIUM IONIZED 1.07(L) 1.12 - 1.32 mmol/l INTERFACE SYSTEM 10/18/2005 9:37 PM CDT Horace Mckeon Jr., MD POINT OF CARE TESTING C OM Final Result INTERFACE SYSTEM Refer to clinic/hospital department * (ABNORMAL) POC ISTAT EG 7+ (10/18/2005 9:17 PM CDT) SPECIMEN TYPE Arterial INTERF FLY SYSTEM Comment: Critical result performed at the point of care. Tidal volume: 600 PEEP: 10 Rate: 14 Pulse OX: 100 Hemoglobin calculated from Hematocrit result FIO2 70 INTERFACE SYSTEM PH 7.11(AA) 7.35 - 7.45 Unit INTERFACE SYSTEM PH TEMP CORRECT 7.11(AA) 7.35 - 7.45 Unit INTERFACE SYSTEM PCO2 POC 48(H) 35 - 45 mmHg INTERFACE SYSTEM PCO2 TEMP CORRECT 48(H) 35 - 45 mmHg INTERFACE SYSTEM PO2 139(H) 80 - 105 mmHg INTERFACE SYSTEM PO2 TEMP CORRECT 139(H) 80 - 105 mmHg INTERFACE SYSTEM HCO3 (CALC) POC 15.1(L) 22.0 - 26.0 mmol/l INTERFACE SYSTEM BASE EXCESS -14(L) -2 - 3 mmol/l INTERFACE SYSTEM HEMOGLOBIN POC 9.9 3 g/dL 12.0 - 16.0 g/dL INTERFACE SYSTEM HEMATOCRIT ABG 29(L) 38 - 51 % INTER FACE SYSTEM O2 SATURATION 98 95 - 98 % INTERF FLY SYSTEM TCO2 (CALC) POC 17(L) 23 - 27 mmol/l INTERFACE SYSTEM SODIUM 143 138 - 146 mEq/L INTERFACE SYSTEM POTASSIUM 4.2 3.5 - 4.9 mEq/L INTERFACE SYSTEM CALCIUM IONIZED 1.09(L) 1.12 - 1.32 mmol/l INTERFACE SYSTEM 10/18/2005 9:17 PM CDT Horace Mckeon Jr., MD POINT OF CARE TESTING C OM Final Result Performing Organization Address [facility] de Phone Number INTERFACE SYSTEM Refer to clinic/hospital department * (ABNORMAL) HEMOGLOBIN AND HEMATOCRIT (10/18/2005 6:38 PM CDT) HEMOGLOBIN 8.9(L) 12.0 - 16.0 g/dL INTERFACE SYSTEM HEMATOCRIT 27.6(L) 36.0 - 46.0 % INTERFACE SYSTEM 10/18/2005 6:38 PM CDT Horace Mckeon Jr., MD HEMATOLOGY ORDERABLES F inal Result Performing Organization Address [facility] de Phone Number INTERFACE SYSTEM Refer to clinic/hospital department * (ABNORMAL) HEMOGLOBIN AND HEMATOCRIT (10/18/2005 5:20 PM CDT) HEMOGLOBIN 11.6(L) 12.0 - 16.0 g/dL INTERFACE SYSTEM HEMATOCRIT 35.3(L) 36.0 - 46.0 % INTERFACE SYSTEM 10/18/2005 5:20 PM CDT Horace Mckeon Jr., MD HEMATOLOGY ORDERABLES F inal Result Performing Organization Address [facility] Phone Number INTERFACE SYSTEM Refer to clinic/hospital department * HCG QUANTITATIVE, BLOOD (10/18/2005 2:31 PM CDT) CHORIONIC GONADOTROPIN, TOTAL <2.0 0.0 - 10.0 mlU/ML INTERFACE SYSTEM Comment: As of 04 at 12:00 p.m. [facility] has changed the methodology for ThCG, and with this change the reference range has changed from 0-5.0 mIU/ml to 0-10.0 mIU/ml. ----- ----- Total HCG levels between 10 mIU/mL and 25 mIU/mL may be indicative of early but need to be correlated with other clinical findings. HCG ranges during normal , as reported by the natural foods clerk, are summarized as follows: Gestational Age Expected hCG Values (mIU/ml) 0.2-1 Weeks 5 - 50 1-2 Weeks 50 - 500 2-3 Weeks 100 - 5,000 3-4 Weeks 1,000 - 50,000 5-6 Weeks 10,000 - 100,000 6-8 Weeks 15,000 - 200,000 2-3 Months 10,000 - 100,000 10/18/2005 2:31 PM CDT us J Patricio Echavarria MD CHEMISTRY ORDERABLES Final Resu lt INTERFACE SYSTEM Refer to clinic/hospital department * (ABNORMAL) PROTIME-INR (10/18/2005 2:00 PM CDT) PROTIME 15.6(H) 12.6 - 14.9 Secs INTERFACE SYSTEM Comment: As of 04 note change in normal range. INR 1.2 INTERFACE SYSTEM Comment: Expected Values for INR: DVT/PE Goal INR 2.5; range 2.0 - 3.0 Valve Replacement Tissue Goal INR 2.5; range 2.0 - 3.0 Mechanical Goal INR 3.0; range 2.5 - 3.5 POST-IL Goal INR 2.5; range 2.0 - 3.0 or Goal 3.0; range 2.5 - 3.5 Atrial Fibrillation Goal INR 2.5; range 2.0 - 3.0 Ischemic Stroke Goal INR 2.5; range 2.0 - 3.0 For additional information see Guidelines for Anticoagulation available from the pharmacy [facility] 10/18/2005 2:00 PM CDT us Rodolfo Echavarria MD HEMATOLOGY ORDERABLES Final Res ult INTERFACE SYSTEM Refer to clinic/hospital department * (ABNORMAL) CBC WITH DIFFERENTIAL (10/18/2005 2:00 PM CDT) WBC 15.5(H) 4.8 - 10.8 K/ul INTERFACE SYSTEM RBC 4.32(L) 4.60 - 6.20 Mil/ul INTERFACE SYSTEM HEMOGLOBIN 12.8(L) 14.0 - 18.0 g/dL INTERFACE SYSTEM HEMATOCRIT 37.1(L) 41.0 - 53.0 % INTERFACE SYSTEM MCV 85.9 84.0 - 103.0 Fl INTERFACE SYSTEM MCH 29.6 27.0 - 34.0 pg INTERFACE SYSTEM MCHC 34.5 30.0 - 35.0 g/dL INTERFACE SYSTEM RDW 13.4 11.0 - 14.5 % INTERFACE SYSTEM PLATELETS 256 140 - 440 K/ul INTERFACE SYSTEM MPV 9.9 8.9 - 12.8 Fl INTERFACE SYSTEM NEUTROPHILS 80.8(H) 42.2 - 75.2 % INTERFACE SYSTEM LYMPHOCYTES 10.8(L) 24.0 - 44.0 % INTERFACE SYSTEM MONOCYTES 8.2 2.0 - 10.0 % INTERFA CE SYSTEM EOSINOPHILS 0.1 0.0 - 7.0 % INTERF FLY SYSTEM BASOPHILS 0.1 0.0 - 1.0 % INTERFAC E SYSTEM NEUTROPHIL ABSOLUTE 12.5(H) 2.0 - 8.0 K/uL INTERFACE SYSTEM LYMPHOCYTE ABSOLUTE 1.7 1.2 - 4.0 K/ul INTERFACE SYSTEM MONOCYTE ABSOLUTE 1.3(H) 0.1 - 0.6 K/ul INTERFACE SYSTEM EOSINOPHIL ABSOLUTE 0.0 0.0 - 0.7 K/ul INTERFACE SYSTEM BASOPHILS ABSOLUTE 0.0 0.0 - 0.2 K/ul INTERFACE SYSTEM PERIPHERAL BLOOD SMEAR REVIEW Automated Diff Automated Diff INTERFACE SYSTEM 10/18/2005 2:00 PM CDT us Rodolfo Echavarria MD HEMATOLOGY ORDERABLES Final Res ult Performing Organization Address [facility] Phone Number INTERFACE SYSTEM Refer to clinic/hospital department * ETHANOL LEVEL (10/18/2005 2:00 PM CDT) ETHANOL <10 <=10 mg/dL INTERFACE SYSTEM 10/18/2005 2:00 PM CDT J Patricio Echavarria MD CHEMISTRY ORDERABLES Final Resu lt Performing Organization Address [facility] Phone Number INTERFACE SYSTEM Refer to clinic/hospital department * (ABNORMAL) BASIC METABOLIC PANEL (10/18/2005 2:00 PM CDT) GLUCOSE 108 70 - 110 mg/dL INTERFACE SYSTEM BUN 10 9 - 20 mg/dL INTERFACE SYSTEM CREATININE 0.7 0.7 - 1.5 mg/dL INTERFACE SYSTEM SODIUM 142 136 - 145 mEq/L INTERFACE SYSTEM POTASSIUM 3.3(L) 3.5 - 5.0 mEq/L INTERFACE SYSTEM CHLORIDE 123(H) 95 - 110 mEq/L INTERFACE SYSTEM CO2 17(L) 22 - 32 mmol/l INTERFACE SYSTEM ANION GAP 5(L) 9 - 20 mEq/L INTERFACE SYSTEM OSMOLALITY, CALCULATED 290 275 - 295 mOsm/Kg INTERFACE SYSTEM CALCIUM 8.7 8.4 - 10.5 mg/dL INTERFACE SYSTEM 10/18/2005 2:00 PM CDT us Rodolfo Echavarria MD CHEMISTRY ORDERABLES Final Resu lt Performing Organization Address [facility] Phone Number INTERFACE SYSTEM Refer to clinic/hospital department documented in this encounter Visit Diagnoses Diagnosis Closed fracture of shaft of femur (CMS/HCC)- Primary Closed fracture of shaft of femur documented in this encounter Care Teams Executive Chef Relationship Specialty Start Date End Date Geraldo Giles MD [address] [place] [address] PCP - General Family Practice 03/22/18 documented as of this encounter
--- OUTSIDE RECORDS SUMMARY | 2024-10-21 21:02 | XMS_ITS | Encounter Summary ---
Author Organization [facility] Address [address] [place] [address] Care Team Providers Care Lens Block Gauger Name Role Phone Geraldo Giles MD Primary Care Provider [phone] Encounter Details Date Type Department Care Team (Latest Contact Info) Description 06/25/2003 Outpatient Historical [address] [address] Suzan Francis MD [address] [place] [id number] COMMUNIC DIS CONTACT NOS (Primary Dx) Social History Tobacco Use Types Packs/Day Years Used Date Smoking Tobacco: Never Assessed Comments Unknown Sex and Gender Information Value Date Recorded Sex Assigned at Not on file 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
--- OUTSIDE RECORDS SUMMARY | 2024-10-21 21:02 | XMS_ITS | Encounter Summary ---
Author Organization [facility] Address [address] [place] [address] Care Team Providers Care Production Worker Name Role Phone Geraldo Giles MD Primary Care Provider [phone] Encounter Details Date Type Department Care Team (Latest Contact Info) Description 07/07/2003 Outpatient Historical [address] [phone] Suzan Francis MD [address] [address] NONINFECT VAG LEUKORRHEA (Primary Dx); Venereal disease contact; ANEMIA NOS; Gynecologic examination Social History Tobacco Use Types Packs/Day Years Used Date Smoking Tobacco: Never Assessed Comments Unknown Sex and Gender Information Value Date Recorded Sex Assigned at Not on file 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
--- OUTSIDE RECORDS SUMMARY | 2024-10-21 21:02 | XMS_ITS | Encounter Summary ---
Author Organization [facility] Address [address] [place] [address] Care Team Providers Care Metal Model Builder Name Role Phone Geraldo Giles MD Primary Care Provider Encounter Details Date Type Department Care Team (Latest Contact Info) Description 01/10/2008 Outpatient Historical [facility] [place] [address] [place] [phone] [place] Guallpa, [facility] [address] [phone] Unspecified Contraceptive Management Social History Tobacco Use Types Packs/Day Years Used Date Smoking Tobacco: Never Assessed Comments No Sex and Gender Information Value Date Recorded Sex Assigned at Not on file Legal 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 Female 4:44 AM CAUSTIC MIXER Gender Identity Not on file Sexual Orientation Not on file documented as of this encounter Plan of Treatment Not on file documented as of this encounter Procedures Procedure Name Priority Date/Time Associated Diagnosis Comments GC, GENITAL Routine 01/09/2008 10:56 AM CAUSTIC MIXER CHLAMYDIA, GENITAL Routine 01/09/2008 10 :56 AM CAUSTIC MIXER PATHOLOGY Routine 01/09/2008 7:51 AM CAUSTIC MIXER HPV HIGH RISK DNA DETECTION Routine 01/09/2008 7:18 AM CAUSTIC MIXER documented in this encounter Results * GC DNA AMPLIFICATION (01/09/2008 10:56 AM CAUSTIC MIXER) FINAL REPORT DNA Amplification Assay: negative for Neisseria gonorrhoeae The Joseph [employer] Amplicor CT/NG test by Polymerase Chain Reaction (PCR) is approved for testing only on endocervical and male urethral swab specimens and male urine. The use of specimens from any other body site has not been validated. Detection of Neisseria gonorrhoeae is dependent on the number of organisms present in the specimen. This may be affected by patient factors, stage of infection, specimen collection methods, transport, storage and processing procedures. INTERFACE SYSTEM Specimen from genital system (specimen) CERVIX UTERI STRUCTURE / Unknown 01/09/2008 10:56 AM CAUSTIC MIXER 01/10/2008 6:51 PM CAUSTIC MIXER [place] Guallpa [facility] MICROBIOLOGY - GENERAL ORDERA BLES Final Result INTERFACE SYSTEM Refer to clinic/hospital department * CHLAMYDIA DNA AMPLIFICATION (01/09/2008 10:56 AM CAUSTIC MIXER) FINAL REPORT DNA Amplification Assay: negative for Chlamydia trachomatis --------- The [employer] Amplicor CT/NG test by Polymerase Chain Reaction (PCR) is approved for testing only on endocervical and male urethral swab specimens and urine. The use of specimens from any other body site has not been validated. Dectection of Chlamadia trachomatis is dependent on the number of organisms present in the specimen. This may be affected by patient factors, stage of infection, specimen collection methods, transport, storage and processing procedures. INTERFACE SYSTEM Specimen from genital system (specimen) CERVIX UTERI STRUCTURE / Unknown 01/09/2008 10:56 AM CAUSTIC MIXER 01/10/2008 6:51 PM CAUSTIC MIXER us [place] Guallpa LOGISTICS CLERK MICROBIOLOGY - GENERAL ORDERA BLES Final Result INTERFACE SYSTEM Refer to clinic/hospital department * PATHOLOGY (01/09/2008 7:51 AM CAUSTIC MIXER) PATHOLOGY/CY TOLOGY REPORT [facility] Dept [facility] [address] Patient: MIRTAH LANGLEY Accn No: [id number] Collected: 01/09/2008 7:51:00 AM CYTOLOGY BUTTON BUTTONHOLE MARKER FINAL REPORT - - LIFE TRAINER PAP History Specimen Source: Endocervical/Cervic al LMP: 01-02-08 Last Pap Date: 2004 WNL Specimen Adequacy Satisfactory for interpretation. The smear lacks endocervical or metaplastic cells. Diagnosis EPITHELIAL CELL ABNORMALITIES. Atypical squamous cells of undetermined significance (ASC-US). Broadcast Engineer JERE BUCHANAN 01/19/08 Completed by: Stan Anderson MD (Electronically signed by) 01/20/08 Additional Diagnosis Some cells suspicious for LGSIL Madina Present. Comment The most cost effective method for follow-up is HPV testing on the residual vial. See asccp.org for suggested follow-up. Important Info About Pap Smears HPV Testing off the Thin Prep vial can be done as a means of further evaluating a Thin Prep Report. For information about ordering the HPV test, phone Cytology at . Treatment or follow-up recommendations (if any) that are considered within this report are based upon general recommendations as contained in 2001 Consensus Guidelines For Cervical Cytological Abnormalities EARNEST: June 25, 2001, and are provided as a general guideline rather than as a specific recommendation. Final decisions about the most appropriate treatment and follow-up should be made on an individualized basis by the treating physician in consultation with his/her patient. CYTOLOGY ADDENDUM REPORT Discussion Residual specimen was tested at [facility] for high risk HPV (human papillomavirus) DNA on 01/28/2008. (Testing for low risk HPV DNA types is not performed as part of this analysis). THIN PREP DIAGNOSIS: ASCUS Addendum Diagnosis HPV DIAGNOSIS: NEGATIVE FOR HIGH RISK HPV DNA Alexander Bledsoe M.D. (Electronically signed by) Verified: 01/30/08 SEC/WLS INTERFACE SYSTEM 01/09/2008 7:51 AM CAUSTIC MIXER Lourdes Guallpa [facility] PATHOLOGY/CYTOLOGY ORDERABLES Edited INTERFACE SYSTEM Refer to clinic/hospital department * HPV HIGH RISK DNA DETECTION (01/09/2008 7:18 AM CAUSTIC MIXER) FINAL REPORT HPV High Risk DNA: Not Detected . -------- Testing by the FDA Approved [employer] Hybrid Capture II method failed to detect the presence of any of the following high-risk HPV types (16,18,31,33, 35,39,45,51,5 2,56,58,59,68 ). High-risk HPV DNA sequences are either absent or the HPV solution DNA levels are below the detection limit of the assay. This test does not evaluate for the presence of low-risk types of HPV. INTERFACE SYSTEM Specimen from genital system (specimen) (Cervical) 01/09/2008 7:18 AM CAUSTIC MIXER 01/23/2008 10:19 AM CAUSTIC MIXER Narrative INTERFACE SYSTEM - 01/28/2008 1:57 PM CAUSTIC MIXER [id number] [place] AVENDAÑOP PATHOLOGY/CYTOLOGY ORDERABLES Final Result Performing Organization Address City/[facility] Co de Phone Number INTERFACE SYSTEM Refer to clinic/hospital department documented in this encounter Visit Diagnoses Diagnosis Unspecified contraceptive management documented in this encounter Care Teams Metal Model Builder Relationship Specialty Start Date End Date Geraldo Giles MD [address] [place] [phone] PCP - General Family Practice 03/22/18 documented as of this encounter
--- OUTSIDE RECORDS SUMMARY | 2024-10-21 21:03 | XMS_ITS | Encounter Summary ---
Author Organization [facility] Address [address] [place] [address] Care Team Providers Care Batter Scaler Name Role Phone Geraldo Giles MD Primary Care Provider Encounter Details Date Type Department Care Team (Late st Contact Info) Description 03/12/2006 Outpatient Historical [facility] [address] [place] [phone] Social History Tobacco Use Types Packs/Day Years Used Date Smoking Tobacco: Never Assessed Comments Unknown Sex and Gender Information Value Date Recorded Sex Assigned at Not on file Legal Sex Female 4:44 AM 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
--- OUTSIDE RECORDS SUMMARY | 2024-10-21 21:03 | XMS_ITS | Clinical Summary ---
Author Organization [facility] Address [address] [place]: Epic Prelude ADT [place] [address] Care Team Providers Care Chair Name Role Phone Racheal Osborne MD Primary Care Provider [phone] Allergies Active Allergy Reactions Criticality Noted Date Comments Unclassified Drug Other (See Comments) 12/25/19 24 Nausea Medication given with Keppra caused extreme anxiety. (Zofran is OK) Medications naloxone (NARCAN) 4 mg/spray Wheeler, Non-AerosolIndi cations:Opioid use EMERGENCY USE ONLY: Administer 1 spray (4 mg) in one nostril one time for signs of narcotic overdosage. May repeat in alternating nostrils every 2-3 min until responsive or until EMS arrives 2 Each 2 3 Active FLUoxetine (PROzac) 40 mg capsule Take 40 mg by mouth daily. 2 caps once daily. Active ARIPiprazole (ABILIFY) 5 mg tablet Take 5 mg by mouth daily. 4 Active carBAMazepine (TEGretol) 200 mg tablet Take 2 Tablets (400 mg) by mouth 2 times daily. 120 Tablet 11 4 Active clonazePAM (KlonoPIN) 0.5 mg TabletIndicatio ns:Generalized anxiety disorder Take 1 Tablet (0.5 mg) by mouth 3 times daily as needed for Anxiety. 90 Tablet 5 5 Active gabapentin (NEURONTIN) 800 mg tablet TAKE 1 TABLET BY MOUTH THREE TIMES DAILY 90 Tablet 5 5 Active topiramate (TOPAMAX) 25 mg tablet Take 1 Tablet (25 mg) by mouth 2 times daily. 60 Tablet 5 5 Active albuterol sulfate HFA 90 mcg/actuation aerosol inhalerIndicati ons:Acute bronchitis, unspecified organism Take 2 Puffs by inhalation every 6 hours as needed for Shortness of Breath. 8.5 Gram 1 5 Active HYDROcodone-vadim taminophen (NORCO) 5-325 mg tabletIndicatio ns:Chronic pain of both knees Take 1 Tablet by mouth every 6 hours as needed for Pain, Moderate. Max Daily Amount: 4 Tablets 120 Tablet 5 Active HYDROcodone-vadim taminophen (NORCO) 5-325 mg tabletIndicatio ns:Chronic pain of both knees Take 1 Tablet by mouth every 6 hours as needed for Pain, Moderate. Max Daily Amount: 4 Tablets 120 Tablet 5 Active HYDROcodone-vadim taminophen (NORCO) 5-325 mg tabletIndicatio ns:Chronic pain of both knees Take 1 Tablet by mouth every 6 hours as needed for Pain, Moderate. Max Daily Amount: 4 Tablets 120 Tablet 5 Active HYDROcodone-vadim taminophen (NORCO) 5-325 mg tabletIndicatio ns:Chronic pain of both knees Take 1 Tablet by mouth every 6 hours as needed for Pain, Moderate. Max Daily Amount: 4 Tablets 120 Tablet 5 025 Discontin ued(Reord er) HYDROcodone-vadim taminophen (NORCO) 5-325 mg tabletIndicatio ns:Chronic pain of both knees Take 1 Tablet by mouth every 6 hours as needed for Pain, Moderate. Max Daily Amount: 4 Tablets 120 Tablet 5 025 Discontin ued(Reord er) HYDROcodone-vadim taminophen (NORCO) 5-325 mg tabletIndicatio ns:Chronic pain of both knees Take 1 Tablet by mouth every 6 hours as needed for Pain, Moderate. Max Daily Amount: 4 Tablets 120 Tablet 5 025 Discontin ued(Reord er) HYDROcodone-vadim taminophen (NORCO) 5-325 mg tabletIndicatio ns:Chronic pain of both knees Take 1 Tablet by mouth every 6 hours as needed for Pain, Moderate. 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 Second time required tube to be removed. Resolved Problems Problem Noted Date Diagnosed Date Resolved Date Ectopic 11/15/2023 11/15/2023 Overview (11/15/2023): Twice on left side. Second time required tube to be removed. 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 12/16/2012 Supervision of normal 04/16/2008 02/15/2023 Encounters Date Type Department Care Team Description 10/20/2024 External Device Data [facility] ABSTRACTION Provider, Abstract 10/12/2024 3:40 PM CDT Office Visit [address] [address] Racheal Osborne MD Chronic pain of both knees (Primary Dx); Obesity (BMI 35.0-39.9 without comorbidity) 09/25/[address] [address] Racheal Osborne MD Chronic pain of both knees 09/22/2024 External Device Data ST[facility] ABSTRACTION Provider, Abstract 09/16/2024 External Device Data [facility] ABSTRACTION Provider, Abstract 09/16/2024 External Device Data [facility] ABSTRACTION Provider, Abstract 09/10/2024 1:30 PM CDT Office Visit [address] [address] Lourdes Guallpa, CARMITA Acute bronchitis, unspecified organism (Primary Dx); Shortness of breath 09/10/2024 Nurse Triage [facility] [address] [place] [phone] Yesi Lee RN 08/26/2024 [facility] [address] [phone] Racheal Osborne MD Chronic pain of both knees 08/26/2024 [facility] [place] [address] [place] [phone] Sonia Boles MD 08/18/2024 External Device Data ST[facility] ABSTRACTION Provider, Abstract 08/18/2024 [facility] [place] [address] [place] [phone] Sonia Boles MD 08/18/2024 [facility] [place] [address] [place] [phone] Marina Melendez MD 08/14/2024 2:00 PM CDT Office Visit [facility] [address] [place] [phone] Andrea Desir MD Trigeminal neuralgia (Primary Dx); S/P craniotomy 08/04/2024 [facility] [address] [phone] Racheal Osborne MD Generalized anxiety disorder from Last 3 Months Immunizations Immunization Administration Dates Next Due (ADACEL/BOOSTRIX)(10 YR UP) TDAP VACCINE, 0.5ML, IM 11/26/2006 (GARDASIL)(9-45 YRS) HUMAN P APILLOMAVIRUS VACCINE, TYPES 6, 11, 16, 18, QUADRIVALENT (4VHPV), 3 DOSE, IM 11/14/2006,07/02/2006,04/19/2006 Influenza Vaccine Split 3+ Yrs IM VFC 01/03/2009 Family History Medical History Relation Name Comments Healthy Father Cancer Maternal Grandfather Amanda Diabetes Maternal Grandfather Amanda Heart Disease Maternal Grandfather Amanda Stroke Maternal Grandfather Amanda Arthritis-osteo Maternal Grandmother Amanda Cancer Maternal Grandmother Amanda lung -8 0's Heart Disease Maternal Grandmother Amanda Hypertension Maternal Grandmother Amanda Melanoma Maternal Grandmother Amanda 70's Stroke Maternal Grandmother Amanda Thyroid Disease Maternal Grandmother Amanda Asthma Mother Kiara Diabetes Mother Kiara Hypertension Mother Kiara Breast Cancer Paternal Aunt 30' s High Cholesterol Paternal Aunt Hypertension Paternal Aunt Breast Cancer Paternal Grandmother Ros twice - unsure of dx age Cancer Paternal Grandmother Ros Diabetes Paternal Grandmother Ros Hypertension Paternal Grandmother Ros Healthy Son 1 Healthy Son 2 Healthy Son 3 Ovarian Cancer Neg Hx Pancreatic Cancer Neg Hx Uterine or Endometrial Cance r, Not Including Cervical Neg Hx Relation Name Status Comments Father Alive Maternal Grandfather Amanda Maternal Grandmother Amanda Alive Mother Kiara Alive Paternal Aunt Alive Paternal Grandfather Paternal Grandmother Ros Son 1 Alive Son 2 Alive Son 3 Alive Social History Tobacco Use Types Packs/Day Years Used Date Smoking Tobacco: Former Cigarettes 0.5 20.9 S tarted: 11/15/2003 Passive Smoke Exposure: Current Smokeless Tobacco: Never Tobacco Cessation:Counseling Given: Not Answered Comments:Quit smoking: has quit in the past. Alcohol Use Standard Drinks/Week Comments No 0 (1 standard drink = 0.6 oz pur e alcohol) Comments No Sex and Gender Information Value Date Recorded Sex Assigned at Female 01/07/2023 6:57 PM OPTICS TEST TECHNICIAN Legal Sex Female 4:44 AM OPTICS TEST TECHNICIAN Gender Identity Female 01/07/2023 6:57 PM OPTICS TEST TECHNICIAN Sexual Orientation Straight 01/07/2023 6: 57 PM OPTICS TEST TECHNICIAN Last Filed Vital Signs Vital Sign Reading Time Taken Comments Blood Pressure 114/68 10/12/2024 3:40 PM CDT Pulse 92 10/12/2024 3:40 PM CDT Temperature 36.7 C (98 F) 10/12/2024 3:40 PM CDT Respiratory Rate 18 10/12/2024 3:40 PM CDT Oxygen Saturation 99% 10/12/2024 3:40 PM CDT Inhaled Oxygen Concentration - - Weight 90.3 kg (199 lb) 10/12/2024 3:40 PM CDT Height 157.5 cm (5' 2 ) 10/12/2024 3:40 PM CDT Body Mass Index 36.4 10/12/2024 3:40 PM CDT Plan of Treatment Upcoming Encounters Date Type Department Care Team (Late st Contact Info) Description 11/25/2024 4:30 PM CDT Appointment [facility] [address] [place] [address] Andrea Desir MD [address] [place] [address] 12/01/2024 12:15 PM CDT Office Visit [facility] [place] [address] [place] [address] Sonia Boles MD [address] [place] [address] 12/11/2024 1:00 PM CDT Office Visit [facility] [address] [place] [address] Andrea Desir MD [address] [place] [address] 01/21/2025 3:20 PM OPTICS TEST TECHNICIAN Office Visit [facility] [place] [address] [address] Racheal Osborne MD [address] [place] [phone] Health Maintenance Due Date Last Done Comments HEPATITIS B VACCINES (1 of 3 - 19+ 3-dose series) 2009 DTAP/TDAP/TD VACCINES (2 - T d or Tdap) 11/26/2016 11/26/2006 Preventative Visit-Managed Medicaid 05/27/2024 05/27/2023, 04/11/2023, 12/07/2008 INFLUENZA VACCINE (#1) 2024 , 02/21/2023, 02/21/2023, Additional history exists PAP SMEAR 04/11/2026 04/11/2023, 04/2018, 03/05/2018 CERVICAL CANCER SCREENING 04/11/2028 HPV/Cotest (21-29) 04/11/2028 04/11/2023, 03/05/2018 HPV/Cotest (30-65) 04/11/2028 04/11/2023, 03/05/2018 HPV VACCINES Completed 11/14/2006, 03/2006, 04/19/2006 Medical Devices Implanted Type Area Lens Edge Grinder Machine Device Identifier Shelf Expiration Date Model / Serial / Lot [place] Ptfe Thick 1.6mmx2.5x2.5c m [id number] - [id number] Implanted:Qty: 1 on 02/17/2024 by Andrea Desir MD at [facility] Graft Right: Brain BARD ELISABET VASC [id number] 03/31/2028 [id number] / / [id number] Duragen + 1x1in Dp-1011 - [id number] Implanted:Qty: 1 on 02/17/2024 by Andrea Desir MD at [facility] Graft Right: Brain [employer] [id number] 07/01/2026 [id number] / / [id number] Hemostatic Surgiflo 8ml W/ Thrombin 2994 - [id number] Implanted:Qty: 1 on 02/17/2024 by Andrea Desir MD at [facility] Hemostatic Right: Brain J&J- [employer] [id number] 04/03/2025 2994 / / [id number] Agent Hemostat Surgicel 2x3in 1952s - [id number] Implanted:Qty: 1 on 02/17/2024 by Andrea Desir MD at [facility] Hemostatic Right: Brain J&J- [employer] [id number] 04/03/20281952S / / [id number] Agent Hemostat Surgicel 3x4in 1942s - [id number] Implanted:Qty: 1 on 02/17/2024 by Andrea Desir MD at [facility] Hemostatic Right: Brain J&J- [employer] [id number] 06/02/20273S / / [id number] Plate Matrxneuro Straight 503 - [id number] Implanted:Qty: 1 on 02/17/2024 by Andrea Desir MD at [facility] Plate Right: Brain J&J- DEPUY SYNTHES 04.503.0 62 / / Plate Matrxneuro Straight 062 - [id number] Implanted:Qty: 1 on 02/17/2024 by Andrea Desir MD at [facility] Plate Right: Cranial J&J- DEPUY SYNTHES 04.503.0 62 / / Plate Matrxneuro Straight - [id number] Implanted:Qty: 1 on 02/17/2024 by Andrea Desir MD at [facility] Plate Right: Cranial J&J- DEPUY SYNTHES 04.503.0 62 / / Screw Matrixneuro Sd 104.01 - [id number] Implanted:Qty: 1 on 02/17/2024 by Andrea Desir MD at [facility] Screw Right: Cranial J&J- DEPUY SYNTHES 04.503.1 04.01 / / Screw Matrixneuro Sd 104.01 - [id number] Implanted:Qty: 1 on 02/17/2024 by Andrea Desir MD at [facility] Screw Right: Cranial J&J- DEPUY SYNTHES 04.503.1 04.01 / / Screw Matrixneuro Sd 104.01 - [id number] Implanted:Qty: 1 on 02/17/2024 by Andrea Desir MD at [facility] Screw Right: Cranial J&J- DEPUY SYNTHES 04.503.1 04.01 / / Screw Matrixneuro Sd .104.01 - [id number] Implanted:Qty: 1 on 02/17/2024 by Andrea Desir MD at [facility] Screw Right: Cranial J&J- DEPUY SYNTHES . 04. / / Screw Matrixneuro Sd .104. - [id number] Implanted:Qty: 1 on 02/17/2024 by Andrea Desir MD at [facility] Screw Right: Cranial J&J- DEPUY SYNTHES . 04.01 / / Screw Matrixneuro Sd .104. - [id number] Implanted:Qty: 1 on 02/17/2024 by Andrea Desir MD at [facility] Screw Right: Cranial J&J- DEPUY SYNTHES . 04.01 / / Procedures Procedure Name Priority Date/Time Associated Diagnosis Comments CERV/VAG CYTO SCREEN PAP W/HPV Routine 04/11/2023 9:04 AM OPTICS TEST TECHNICIAN Encounter for surveillance of other contraceptive from Last 3 Months or Most Recently Relevant to Health Maintenance Results * CERV/VAG CYTO SCREEN PAP W/HPV (04/11/2023 9:04 AM OPTICS TEST TECHNICIAN) CLINICAL INFORMATION [facility] Comment:SCREENING LAST MENSTRUAL PERIOD [facility] Comment:NONE GIVEN PREV PAP: [facility] Comment:NONE GIVEN PREV BX: [facility] Comment:NONE GIVEN SOURCE [facility] Comment:ENDOCERVIX ADEQUACY: [facility] Comment: Satisfactory for evaluation. Endocervical/transformation zone component absent. Age and/or menstrual status not provided PAP INTERP [facility] Comment: Cytology Results: Negative for intraepithelial lesion or malignancy. COMMENT (PAP TEST) [facility] [place] Comment: This Pap test has been evaluated with computer assisted technology. SKEIN DYER: Abdelrahman [facility] Comment: BRIDGETTE DUARTE(ASCP) CT screening location: [place] [address] [place] [address] EXPLANATORY NOTE [facility] Comment: EXPLANATORY NOTE: The Pap is a screening test for cervical cancer. It is not a diagnostic test and is subject to false negative and false positive results. It is most reliable when a satisfactory sample, regularly obtained, is submitted with relevant clinical findings and history, and when the Pap result is evaluated along with historic and current clinical information. HPV E6/E7 Not Detected Not Detected DNA [facility] [place] Comment: Methodology: Repeat Chief-Mediated Amplification This assay detects E6/E7 viral messenger RNA (mRNA) from 14 high-risk HPV types (16,18,31,33,35,39,45,51,52,56,58,59,66,68). Cervical sources are required for HPV testing. If a vaginal source from a patient who has had a total hysterectomy with removal of cervix was submitted, please contact the testing laboratory for alternative testing options. For additional information, please refer to http://education.HomeAway/faq/CLZ345h3 (This link if provided for information/ educational purposes only.) Test Performed at: [facility] [address] [place] [address] Jessy JENNINGS Genital SWAB OF ENDOCERVIX / Unknown 04/11/2023 9:04 AM OPTICS TEST TECHNICIAN 04/12/2023 9:14 AM OPTICS TEST TECHNICIAN [place] AVENDAÑOP PATHOLOGY/CYTOLOGY ORDERABLES Final Result Performing Organization Address City/State/[facility] Co de Phone Number [facility] [phone] [facility] [address] [place] [address] from Last 3 Months or Most Recently Relevant to Health Maintenance Insurance [employer] MED[employer] RX INFOCROSSING Medicaid RX [employer]IM[employer] PLANS (INTERNAL) [facility] Internal Plans Advance Directives For more information, please contact: [phone] * Full Code (Latest Code Status on File) Date Activated Date Inactivated Comments 02/17/2024 1:14 PM 02/19/2024 12:46 PM * Full Code Date Activated Date Inactivated Comments 02/17/2024 5:53 AM 02/17/2024 1:14 PM Care Teams Chair Relationship Specialty Start Date End Date Racheal Osborne MD [address] [address] PCP - General Family Practice 08/12/23
--- OUTSIDE RECORDS SUMMARY | 2024-10-21 21:03 | XMS_ITS | Encounter Summary ---
Author Organization [facility] Address [address] [place] [address] Care Team Providers Care Open Die Inspector Name Role Phone Geraldo Giles MD Primary Care Provider [phone] Encounter Details Date Type Department Care Team (Latest Contact Info) Description 03/11/2006 Outpatient Historical [facility] [place] [address] [place] [phone] Fran Sapp MD [address] [place] [phone] Pain in Joint, Lower Leg (Primary Dx); Other Malaise and Fatigue Social History Tobacco Use Types Packs/Day Years Used Date Smoking Tobacco: Never Assessed Comments Unknown Sex and Gender Information Value Date Recorded Sex Assigned at Not on file Legal Sex Female 4:44 AM TRADE SHOW MANAGER Gender Identity Not on file Sexual Orientation Not on file documented as of this encounter Plan of Treatment Not on file documented as of this encounter Visit Diagnoses Diagnosis Pain in joint, lower leg- Primary Other malaise and fatigue documented in this encounter Care Teams Open Die Inspector Relationship Specialty Start Date End Date Geraldo Giles MD [address] [place] [phone] PCP - General Family Practice 03/22/18 documented as of this encounter
--- OUTSIDE RECORDS SUMMARY | 2024-10-21 21:03 | XMS_ITS | Encounter Summary ---
Author Organization [facility] Address [address] [place] [address] Care Team Providers Care Reference Investigator Name Role Phone Geraldo Giles MD Primary Care Provider Encounter Details Date Type Department Care Team (Latest Contact Info) Description 02/19/2006 Outpatient Historical [facility] Orthopedics- [address] [place] [address] Mike Roberson MD NO ADDRESS ON FILE Healed Fx Follow-Up (Primary Dx) Social History Tobacco Use Types Packs/Day Years Used Date Smoking Tobacco: Never Assessed Comments Unknown Sex and Gender Information Value Date Recorded Sex Assigned at Not on file Legal Sex Female 4:44 AM SENIOR GOVERNMENT PROGRAM ANALYST Gender Identity Not on file Sexual Orientation Not on file documented as of this encounter Plan of Treatment Not on file documented as of this encounter Visit Diagnoses Diagnosis Healed fx follow-up- Primary Treatment of healed fracture follow-up examination documented in this encounter Care Teams Reference Investigator Relationship Specialty Start Date End Date Geraldo Giles MD [address] [place] [address] PCP - General Family Practice 03/22/18 documented as of this encounter
--- OUTSIDE RECORDS SUMMARY | 2024-10-21 21:03 | XMS_ITS | Encounter Summary ---
Author Organization [facility] Address [address] [place] [address] Care Team Providers Care Teletype Technician Name Role Phone Geraldo Giles MD Primary Care Provider Encounter Details Date Type Department Care Team (Late st Contact Info) Description [facility] [address] [place] [address] Jack Hernandez MD [address] [address] Social History Tobacco Use Types Packs/Day Years Used Date Smoking Tobacco: Never Assessed Comments Unknown Sex and Gender Information Value Date Recorded Sex Assigned at Not on file Legal Sex Female 4:44 AM BAND AND CUFF CUTTER Gender Identity Not on file Sexual Orientation Not on file documented as of this encounter Plan of Treatment Not on file documented as of this encounter Visit Diagnoses Not on filedocumented in this encounter Care Teams Teletype Technician Relationship Specialty Start Date End Date Geraldo Giles MD [address] [place] [address] PCP - General Family Practice 03/22/18 documented as of this encounter
--- OUTSIDE RECORDS SUMMARY | 2024-10-21 21:03 | XMS_ITS | Encounter Summary ---
Author Organization [facility] Address [address] [place] [address] Care Team Providers Care Rougher For Cement Name Role Phone Geraldo Giles MD Primary Care Provider [phone] Encounter Details Date Type Department Care Team (Late st Contact Info) Description 2006 [facility] [address] [place] [address] Jack Hernandez MD [address] [address] Social History Tobacco Use Types Packs/Day Years Used Date Smoking Tobacco: Never Assessed Comments Unknown Sex and Gender Information Value Date Recorded Sex Assigned at Not on file Legal Sex Female 4:44 AM POWDERED SUGAR SUPERVISOR Gender Identity Not on file Sexual Orientation Not on file documented as of this encounter Plan of Treatment Not on file documented as of this encounter Visit Diagnoses Not on filedocumented in this encounter Care Teams Rougher For Cement Relationship Specialty Start Date End Date Geraldo Giles MD [address] [place] [address] PCP - General Family Practice 03/22/18 documented as of this encounter
--- OUTSIDE RECORDS SUMMARY | 2024-10-21 21:03 | XMS_ITS | Encounter Summary ---
Author Organization [facility] Address [address] [place] [address] Care Team Providers Care Construction Representative Name Role Phone Geraldo Giles MD Primary Care Provider Encounter Details Date Type Department Care Team (Latest Contact Info) Description 03/19/2006 Outpatient Historical [facility] Orthopedics- [address] [place] [address] Mike Roberson MD NO ADDRESS ON FILE Closed Fracture of Shaft of Femur (CMS/HCC) (Primary Dx); Aftercare for Healing Traumatic Fracture of Hip Social History Tobacco Use Types Packs/Day Years Used Date Smoking Tobacco: Never Assessed Comments Unknown Sex and Gender Information Value Date Recorded Sex Assigned at Not on file Legal Sex Female 4:44 AM BIOINFORMATICS RESEARCH TECHNICIAN Gender Identity Not on file Sexual Orientation Not on file documented as of this encounter Plan of Treatment Not on file documented as of this encounter Visit Diagnoses Diagnosis Closed fracture of shaft of femur (CMS/HCC)- Primary Closed fracture of shaft of femur Aftercare for healing traumatic fracture of hip documented in this encounter Care Teams Construction Representative Relationship Specialty Start Date End Date Geraldo Giles MD [address] [place] [address] PCP - General Family Practice 03/22/18 documented as of this encounter
--- NOTE | 2024-10-21 21:10 | W.ED.PSYCHS ---
HPI - Psych General: Chief Complaint: Psychiatric Symptoms Stated Complaint: MHE Time Seen by Provider: 10/21/24 21:06 Source: patient Mode of arrival: ambulatory Limitations: no limitations History of Present Illness: 34-year-old female who was brought by her she states that she feels like she is going out of her mind has been stated that she had had a gun and he had to wrestle the gun away from her police were called and she agreed to come. She states she does feel depressed she denies being suicidal me but states she does feel like she is going crazy Associated symptoms: Reports depression and suicidal ideation Related Data Home Medications ?Medication ?Instructions ?Recorded ?Confirmed baclofen 20 mg tablet 20 mg PO TID PRN 07/11/23 12/31/23 carbamazepine 200 mg tablet 200 mg PO TID 07/11/23 12/31/23 gabapentin 800 mg tablet 800 mg PO QID 07/11/23 12/31/23 ibuprofen 200 mg capsule 800 mg PO TID PRN 07/11/23 12/31/23 lidocane nasal 10 mg nasal DAILY PRN 07/11/23 12/31/23 topiramate 25 mg tablet 25 mg PO BID 07/11/23 12/31/23 hydrocodone 5 mg-acetaminophen 325 1 tab PO TID PRN 09/13/23 12/31/23 mg tablet carbamazepine 200 mg tablet 400 mg PO TID 12/31/23 12/31/23 (Tegretol) Previous Rx's ?Medication ?Instructions ?Recorded aripiprazole 5 mg tablet (Abilify) 5 mg PO DAILY #30 tabs 12/31/23 fluoxetine 40 mg capsule 80 mg (2 x 40 mg) PO QAM #60 caps 12/31/23 Allergies Allergy/AdvReac Type Severity Reaction Status Date / Time No Known Allergies Allergy Verified 12/31/23 12:31 Review of Systems Const: Denies: fever(s), chills, body aches or change in appetite ENMT: Denies: throat pain or dental pain Card: Denies: chest pain Resp: Denies: dyspnea GI: Denies: abdominal pain, nausea, vomiting or diarrhea Musc: Denies: neck pain or back pain Skin/Breast: Denies: rash Neuro: Denies: headache(s) Psych: Reports: depression and suicidal ideation [facility] ED PFSH: Medical History Psychiatric care Borderline personality disorder Generalized anxiety disorder with panic attacks Social History Smoking and tobacco/nicotine status: current every day tobacco/nicotine user cigarettes [ Other cigarette details: 0.5 PPD for 10 years stopped for 7 months just started again] Quit status (tobacco/nicotine): considering quitting Second hand smoke exposure: Yes Female Reproductive History: Spontaneous abortions: No Physical Exam Const: COMMON NORMALS: no acute distress, patient oriented x3 and healthy appearing HENMT: COMMON NORMALS: normocephalic and atraumatic HEAD & SCALP: normocephalic and atraumatic Neck/C-Spine: COMMON NORMALS: full ROM and supple Chest: COMMONS NORMALS: normal inspection of the chest Resp: COMMON NORMALS: normal respiratory effort Cardio: COMMON NORMALS: regular rate, regular rhythm and No murmurs present (Cardio) RATE: regular rate RHYTHM: regular rhythm Neuro: COMMON NORMALS: patient oriented x3, moves all extremities and no focal motor deficits Psych: COMMON NORMALS: mental status grossly normal, Normal thought process present and cooperative MOOD & AFFECT: Yes depressed mood THOUGHT PROCESS: Normal thought process present THOUGHT CONTENT: Yes Suicidality present Skin: COMMON NORMALS: no rashes or lesions noted and no wounds GENERAL SKIN EXAM: no rashes or lesions noted Course Vital Signs: Vital signs: Vital Signs Temperature 98.6 F 10/21/24 20:57 Pulse Rate 92 10/21/24 20:57 Respiratory Rate 18 10/21/24 20:57 Blood Pressure 134/85 10/21/24 20:57 Pulse Oximetry 99 10/21/24 20:57 MDM - Psych Medical Decision Making Patient presents here with suicidal ideations she is medically cleared I spoke to psychiatrist will admit at this time. Medical Records I reviewed the patient's medical records. Lab Data I reviewed the patient's lab results. 10/21/24 21:16 10/21/24 21:16 Laboratory Results WBC 6.76 10^3/uL (3.29-11.43) 10/21/24 21:16 RBC 4.03 10^6/uL (3.85-5.65) 10/21/24 21:16 Hgb 11.30 g/dL (11.27-16.99) 10/21/24 21:16 Hct 34.9 % (36-47) L 10/21/24 21:16 MCV 86.6 fl (85-98) 10/21/24 21:16 MCH 28.0 pg (27-33) 10/21/24 21:16 MCHC 32.4 g/dL (30-55) 10/21/24 21:16 RDW 13.3 % (12.1-15.1) 10/21/24 21:16 Plt Count 217 10^3/cmm (157-399) 10/21/24 21:16 MPV 9.6 fL (7.4-10.4) 10/21/24 21:16 Neut % (Auto) 70.0 % 10/21/24 21:16 Lymph % (Auto) 20.3 % 10/21/24 21:16 [place] % (Auto) 8.6 % 10/21/24 21:16 Eos % (Auto) 0.6 % 10/21/24 21:16 Baso % (Auto) 0.4 % 10/21/24 21:16 Neut # (Auto) 4.73 10^3/uL (1.8-7.7) 10/21/24 21:16 Lymph # (Auto) 1.4 10^3/uL (0.8-4.8) 10/21/24 21:16 [place] # (Auto) 0.6 10^3/uL (0.2-0.9) 10/21/24 21:16 Eos # (Auto) 0.0 10^3/uL (0.0-0.8) 10/21/24 21:16 Baso # (Auto) 0.0 10^3/uL (0.0-0.1) 10/21/24 21:16 Nucleated RBC % (auto) 0 % 10/21/24 21:16 Nucleated RBCs # 0.0 /100WBC 10/21/24 21:16 No radiology studies performed this visit Discharge Plan Discharge Patient Disposition: Admitted As Inpatient Clinical Impression: Suicidal ideation Condition: Stable Coding Level of Care Code ED Shellfish Checker for Larisa Lujan
[2024-10-21 21:27] LABS: Hematocrit 34.9 % (36-47); Hemoglobin 11.30 g/dL (11.27-16.99); Mean Corpuscular HGB Conc 32.4 g/dL (30-55); Mean Corpuscular Hemoglobin 28.0 pg (27-33); Mean Corpuscular Volume 86.6 fl (85-98); Nucleated Red Blood Cells % 0 %; Platelet Count 217 10^3/cmm (157-399); Red Blood Count 4.03 10^6/uL (3.85-5.65); White Blood Count 6.76 10^3/uL (3.29-11.43)
[2024-10-21 21:46] LABS: HCG Qualitative Urine. Negative (Negative)
--- NOTE | 2024-10-21 21:55 | PC.NURSE ---
96 Hour Involuntary Hold Patient Rights have been reviewed with patient and a copy of the same has been provided to her. Electrical Systems Drafter Kurt Mckeon was present at chair side during the time of presentation.
[2024-10-21 21:56] LABS: PCP Screen Urine Negative (Negative)
[2024-10-21 21:58] LABS: Alanine Aminotransferase 13 U/L (0-33); Albumin Level 4.2 g/dL (3.5-5.2); Alkaline Phosphatase 50 U/L (35-105); Anion Gap 16.2 (5-19); Aspartate Amino Transferase 28 U/L (0-32); Blood Urea Nitrogen 16 mg/dL (6-20); Calcium 8.8 mg/dL (8.5-10.5); Carbon Dioxide 18 mmol/L (22-29); Chloride 106 mmol/L (98-107); Creatinine Clr Calc Pharmacy 82.4830; Globulin 2.6 g/dL (1.3-4.6); Glucose 117 mg/dL (65-115); Osmolality Calculated 286 mOsm/kg (285-295); Potassium 3.2 mmol/L (3.5-5.1); Sodium 137 mmol/L (136-145); Total Protein 6.8 g/dL (6.6-8.7)
[2024-10-21 21:59] LABS: Acetaminophen < 5.0 ug/mL (10-30); Alcohol Level < 10 mg/dL (0-10); Salicylate < 0.3 mg/dL (3-10)
--- NOTE | 2024-10-21 22:18 | ECG_ITS ---
[facility] [place] [facility] Date: 2024-10-21 Pat Name: Mirtha Miller Department: Room: 129 Gender: Female Contracting Specialist: : [id number] Requested By: Bettina Meraz Order Number: [id number] Jenny MD: Sy Richey M.D. Measurements Intervals [place] Rate: 83 P: 46 [place]: 148 QRS: 47 QRSD: 90 T: 36 QT: 386 QTc: 454 Interpretive Statements SINUS RHYTHM No previous ECG available for comparison Electronically Signed On 10-24-2024 08:49:40 CDT by Sy Richey M.D. [email or web address]
[2024-10-21 22:30] VITALS: BP 119/69; PULSE 73; O2SAT 100
[2024-10-21 23:05] VITALS: BP 119/69; PULSE 73; O2SAT 100
[2024-10-21 23:20] VITALS: BP 121/80; PULSE 83; RESP 20; TEMP 37.2; O2SAT 98
[2024-10-22 06:00] VITALS: BP 130/81; PULSE 74; RESP 16; TEMP 36.7; O2SAT 99
[2024-10-22] MEDS: HYDROcodone-acetaminophen 5-325 mg Tablet 1 TAB PO ×2 (09:27→16:38)
[2024-10-22 13:58] VITALS: BP 165/117; PULSE 104; RESP 16; TEMP 37.3; O2SAT 94
--- NOTE | 2024-10-22 15:22 | W.PM.NPUH&PS ---
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 Encourage sober living treatment after discharge at the highest level of care to which she is willing to commit. 5. Obtain collateral information. PDMP PDMP Reviewed: Not Reviewed Involuntary Hold Information Hold Status: Legal Status: 96 Hour Hold Date/Time Hold Expires: 10/27/24@21:26 Attestations U Medical Necessity Statement*: Inpatient hospitalization is medically necessary and the clinically appropriate intervention at this time. We will monitor/initiate medications and make changes as indicated. Patient will be in the hospital for over 2 midnights. Likely length of stay 3 to 5 days. Coding Level of Care Code Acute Code for g Fwd Diagnoses Generalized anxiety disorder with panic attacks F41.1; F41.0 Borderline personality disorder F60.3 Major depressive disorder, recurrent severe without psychotic features F33.2 Post-traumatic stress disorder, chronic F43.12 Suicidal ideation R45.859
[2024-10-22 20:20] VITALS: BP 127/85; PULSE 70; RESP 18; TEMP 36.6; O2SAT 98
[2024-10-23] MEDS: HYDROcodone-acetaminophen 5-325 mg Tablet 1 TAB PO ×3 (01:52→15:00)
[2024-10-23 06:00] VITALS: BP 109/73; PULSE 93; RESP 17; TEMP 36.7; O2SAT 99
--- NOTE | 2024-10-23 13:46 | P.NPUPN_ITS ---
Subjective NPU 2 Subjective: Patient presented today reporting that she did okay with the added medication. She endorsed a plan to continue with the medication and try to work towards getting better so things will be more functional at home. She denied any side effects of the medication overall. Mental Status Exam 2 MSE Comments: This is an obese white female in hospital scrubs with adequate grooming and eye contact. No abnormal movements except for mild psychomotor retardation. Cooperative with exam in mild to moderate distress. Speech was mostly normal rate and decreased volume. Mood described as struggling, affect slightly subdued. Thought process organized. Thought content: Patient denied suicidal or homicidal ideation, there were no delusions reported or noted, she denied any auditory or visual hallucinations. Feeling very anxious, particularly since the mother's passing in October 2022. Reports feeling very isolated, unwanted, and like a burden. Experiences a sense of detachment from self, with everything feeling unreal. Stressors include marital problems, home stress, and issues with a child who has ODD and ADHD. Attention and concentration were intact and memory appeared mostly reliable but no more formally tested. She is alert and oriented x 3. Insight and judgment are limited. Impulse control is impaired. Vitals/I&O/Wt Last Vital Signs Temp 98.1 F 10/23/24 06:00 Pulse 93 10/23/24 06:00 Resp 17 10/23/24 06:00 BP 109/73 10/23/24 06:00 Pulse Ox 99 10/23/24 06:00 O2 Del Method Room Air 10/23/24 06:00 Weight last 48 hrs Weight 86.183 kg Data NPU 10/21/24 21:16 10/21/24 21:16 A&P Assessment and plan 1. Generalized anxiety disorder with panic attacks: 2. Borderline personality disorder: 3. Major depressive disorder, recurrent severe without psychotic features: 4. Post-traumatic stress disorder, chronic: 5. Suicidal ideation: Plan: This is a 34-year-old white female with an extended history of mental health and some addiction issues specifically with cannabis who has had significant challenges at home both with her and her family in general. She was having suicidal ideation which led to her coming to the hospital. She reports previously having medication but discontinuing some due to how it made her feel. She discussed an openness to trying Abilify again. Mood dysregulation with anxiety and panic attacks. Perceived ineffectiveness of current psychiatric medication regimen. Marital and home stress contributing to psychological distress. Daily cannabis use with episodes of panic and paranoia attacks. Mood stabilizer therapy indicated for mood dysregulation. Plan Initiated Abilify with a plan to start at a low dose, pending review of previous dosing history. Will monitor response to Abilify and assess tolerability. Follow-up scheduled for the next day to evaluate progress and address any concerns regarding medication effects. 1. Continue current medication. Except initiate Abilify 2 mg p.o. daily. 2. Continue every 15 minute checks for safety. 3. Encourage individual, group and milieu therapy. 4. Encourage sober living treatment after discharge at the highest level of care to which she is willing to commit. 5. Obtain collateral information. PDMP PDMP Reviewed: Not Reviewed Involuntary Hold Information 2 Hold Status: Legal Status: 96 Hour Hold Date/Time Hold Expires: 10/27/24 @21:26 Attestations NPU 2 Medical Necessity Statement*: Inpatient hospitalization is medically necessary and the clinically appropriate intervention at this time. We will monitor/initiate medications and make changes as indicated. Likely length of stay 2-4 days. Coding Level of Care Code Acute Code for Chg Fwd Diagnoses Generalized anxiety disorder with panic attacks F41.1; F41.0 Borderline personality disorder F60.3 Major depressive disorder, recurrent severe without psychotic features F33.2 Post-traumatic stress disorder, chronic F43.12 Suicidal ideation R45.851
[2024-10-23 14:00] VITALS: BP 137/75; PULSE 77; RESP 16; TEMP 36.6; O2SAT 99
[2024-10-23 20:13] VITALS: BP 130/84; PULSE 80; RESP 17; TEMP 37; O2SAT 98
--- NOTE | 2024-10-23 21:32 | PC.NURSE ---
patient called her and after she hung up proceeded to cry very loudly and became hysterical and inconsolable for about 30 minutes
[2024-10-24 06:00] VITALS: BP 148/89; PULSE 109; RESP 17; TEMP 37.1; O2SAT 98
--- NOTE | 2024-10-24 07:06 | PC.NURSE ---
10/23/[id number] Patient had significant outburst after talking on the phone with her . She was unable to maintain her self control et advised this nurse that she needs her clonapin. Dr. Gomez gives one time order for clonapin .5. Administered et nursing continues to attempt consoling.
[2024-10-24] MEDS: HYDROcodone-acetaminophen 5-325 mg Tablet 1 TAB PO ×2 (08:43→18:22)
[2024-10-24 14:00] VITALS: BP 139/93; PULSE 68; RESP 16; TEMP 36.6; O2SAT 100
--- NOTE | 2024-10-24 17:20 | P.NPUPN_ITS ---
Subjective NPU 2 Subjective: Patient presented today reporting that she is feeling a bit better. She reports that the Abilify feels like it is working fine and she denied any concerns related to the medication now. She reports considering open thinking about her family more and feeling better. She denied any side effects of the medication at this time. Mental Status Exam 2 MSE Comments: This is an obese white female in hospital scrubs with adequate grooming and eye contact. No abnormal movements except for mild psychomotor retardation. Cooperative with exam in mild to moderate distress. Speech was mostly normal rate and decreased volume. Mood described as a little better, affect slightly subdued. Thought process organized. Thought content: Patient denied suicidal or homicidal ideation, there were no delusions reported or noted, she denied any auditory or visual hallucinations. Feeling very anxious, particularly since the mother's passing in October 2022. Reports feeling very isolated, unwanted, and like a burden. Experiences a sense of detachment from self, with everything feeling unreal. Stressors include marital problems, home stress, and issues with a child who has ODD and ADHD. Attention and concentration were intact and memory appeared mostly reliable but no more formally tested. She is alert and oriented x 3. Insight and judgment are limited. Impulse control is impaired. Vitals/I&O/Wt Last Vital Signs Temp 98 F 10/24/24 14:00 Pulse 68 10/24/24 14:00 Resp 16 10/24/24 14:00 BP 139/93 10/24/24 14:00 Pulse Ox 100 10/24/24 14:00 O2 Del Method Room Air 10/24/24 14:00 Data NPU 10/21/24 21:16 10/21/24 21:16 A&P Assessment and plan 1. Generalized anxiety disorder with panic attacks: 2. Borderline personality disorder: 3. Major depressive disorder, recurrent severe without psychotic features: 4. Post-traumatic stress disorder, chronic: 5. Suicidal ideation: Plan: This is a 34-year-old white female with an extended history of mental health and some addiction issues specifically with cannabis who has had significant challenges at home both with her and her family in general. She was having suicidal ideation which led to her coming to the hospital. She reports previously having medication but discontinuing some due to how it made her feel. She discussed an openness to trying Abilify again. Mood dysregulation with anxiety and panic attacks. Perceived ineffectiveness of current psychiatric medication regimen. Marital and home stress contributing to psychological distress. Daily cannabis use with episodes of panic and paranoia attacks. Mood stabilizer therapy indicated for mood dysregulation. Plan Initiated Abilify with a plan to start at a low dose, pending review of previous dosing history. Will monitor response to Abilify and assess tolerability. Follow-up scheduled for the next day to evaluate progress and address any concerns regarding medication effects. 1. Continue current medication. Except initiate Abilify 2 mg p.o. daily. We will discuss increasing her dose to 5 mg prior to discharge but could possibly discharge on the 2 mg. 2. Continue every 15 minute checks for safety. 3. Encourage individual, group and milieu therapy. 4. Encourage sober living treatment after discharge at the highest level of care to which she is willing to commit. 5. Obtain collateral information. PDMP PDMP Reviewed: Not Reviewed Involuntary Hold Information 2 Hold Status: Legal Status: 96 Hour Hold Date/Time Hold Expires: 10/27/24 @21:26 Attestations NPU 2 Medical Necessity Statement*: Inpatient hospitalization is medically necessary and the clinically appropriate intervention at this time. We will monitor/initiate medications and make changes as indicated. Likely length of stay 2-4 days. Coding Level of Care Code Acute Code for g Fwd Diagnoses Generalized anxiety disorder with panic attacks F41.1; F41.0 Borderline personality disorder F60.3 Major depressive disorder, recurrent severe without psychotic features F33.2 Post-traumatic stress disorder, chronic F43.12 Suicidal ideation R45.85
[2024-10-24 19:57] VITALS: BP 150/95; PULSE 77; RESP 18; TEMP 37.1; O2SAT 99
[2024-10-25 06:00] VITALS: BP 116/62; PULSE 73; RESP 16; O2SAT 96; BMI 34.5
[2024-10-25] MEDS: HYDROcodone-acetaminophen 5-325 mg Tablet 1 TAB PO ×2 (08:41→14:52)
[2024-10-25 14:00] VITALS: BP 117/80; PULSE 78; RESP 16; TEMP 36.6; O2SAT 99
--- NOTE | 2024-10-25 17:23 | W.PM.NPUPNS ---
Subjective NPU Subjective: Patient presented today reporting that she is doing better. She reports the 2 mg of Abilify seems like it is much better. She denies any limitations other than feeling that she is kind of stuck here. We discussed that there is a high likelihood of discharge in the next 48 hours but that she will be meeting Dr. Alonzo tomorrow and he will be knowledgeable about her situation as we will communicate first. She reports being happy that she came here and needing to work on avoiding this kind of pattern in the future. She denied any side effects of medication. Mental Status Exam MSE Comments: This is an obese white female in hospital scrubs with adequate grooming and eye contact. No abnormal movements except for mild psychomotor retardation. Cooperative with exam in mild to moderate distress. Speech was mostly normal rate and decreased volume. Mood described as a little better, affect slightly subdued. Thought process organized. Thought content: Patient denied suicidal or homicidal ideation, there were no delusions reported or noted, she denied any auditory or visual hallucinations. Feeling very anxious, particularly since the mother's passing in October 2022. Reports feeling very isolated, unwanted, and like a burden. Experiences a sense of detachment from self, with everything feeling unreal. Stressors include marital problems, home stress, and issues with a child who has ODD and ADHD. Attention and concentration were intact and memory appeared mostly reliable but no more formally tested. She is alert and oriented x 3. Insight and judgment are limited. Impulse control is impaired. Vitals/I&O/Wt Last Vital Signs Temp 98 F 10/25/24 14:00 Pulse 78 10/25/24 14:00 Resp 16 10/25/24 14:00 BP 117/80 10/25/24 14:00 Pulse Ox 99 10/25/24 14:00 O2 Del Method Room Air 10/25/24 14:00 Weight last 48 hrs Weight 88.564 kg Data NPU 10/21/24 21:16 10/21/24 21:16 A&P Assessment and plan 1. Generalized anxiety disorder with panic attacks: 2. Borderline personality disorder: 3. Major depressive disorder, recurrent severe without psychotic features: 4. Post-traumatic stress disorder, chronic: 5. Suicidal ideation: Plan: This is a 34-year-old white female with an extended history of mental health and some addiction issues specifically with cannabis who has had significant challenges at home both with her and her family in general. She was having suicidal ideation which led to her coming to the hospital. She reports previously having medication but discontinuing some due to how it made her feel. She discussed an openness to trying Abilify again. Mood dysregulation with anxiety and panic attacks. Perceived ineffectiveness of current psychiatric medication regimen. Marital and home stress contributing to psychological distress. Daily cannabis use with episodes of panic and paranoia attacks. Mood stabilizer therapy indicated for mood dysregulation. Plan Initiated Abilify with a plan to start at a low dose, pending review of previous dosing history. Will monitor response to Abilify and assess tolerability. Follow-up scheduled for the next day to evaluate progress and address any concerns regarding medication effects. 1. Continue current medication. Except initiate Abilify 2 mg p.o. daily. We will discuss increasing her dose to 5 mg prior to discharge but could possibly discharge on the 2 mg. Likely plan to leave medication where it is. 2. Continue every 15 minute checks for safety. 3. Encourage individual, group and milieu therapy. 4. Encourage sober living treatment after discharge at the highest level of care to which she is willing to commit. 5. Obtain collateral information. PDMP PDMP Reviewed: Not Reviewed Involuntary Hold Information Hold Status: Legal Status: 96 Hour Hold Date/Time Hold Expires: 10/27/24 @21:26 Attestations U Medical Necessity Statement*: Inpatient hospitalization is medically necessary and the clinically appropriate intervention at this time. We will monitor/initiate medications and make changes as indicated. Likely length of stay 1-3 days. Coding Level of Care Code Acute Code for [facility] Fwd Diagnoses Generalized anxiety disorder with panic attacks F41.1; F41.0 Borderline personality disorder F60.3 Major depressive disorder, recurrent severe without psychotic features F33.2 Post-traumatic stress disorder, chronic F43.12 Suicidal ideation R45.854
[2024-10-25 20:25] VITALS: BP 143/96; PULSE 85; RESP 19; TEMP 36.7; O2SAT 98
[2024-10-26 06:00] VITALS: BP 132/77; PULSE 88; RESP 17; TEMP 36.7; O2SAT 99
[2024-10-26] MEDS: HYDROcodone-acetaminophen 5-325 mg Tablet 1 TAB PO ×2 (09:13→16:56)
[2024-10-26 14:00] VITALS: BP 157/86; PULSE 107; RESP 16; TEMP 37.1; O2SAT 100
--- NOTE | 2024-10-26 15:46 | W.PM.NPUDCS ---
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 10/21/24 21:34 Ur Amphetamines Sc reen Negative ng/mL (N egative) 10/21/24 21:34 U Benzodiazepines Scrn Negative ng/mL (N egative) 10/21/24 21:34 Urine Cocaine Scre en Negative ng/mL (N egative) 10/21/24 21:34 U Marijuana (THC) Screen Positive ng/mL (N egative) H 10/21/24 21:34 Ethyl Alcohol < 10 mg/dL (0-10) 10/21/24 21:16 Vitals: Last Vital Signs Temp 98.7 F 10/26/24 14:00 Pulse 107 H 10/26/24 14:00 Resp 16 10/26/24 14:00 BP 157/86 10/26/24 14:00 Pulse Ox 100 10/26/24 14:00 O2 Del Method Room Air 10/26/24 06:00 Discharge Plan Discharge Patient Disposition: Home Condition: Stable Prescriptions: New aripiprazole 2 mg Tablet 2 mg PO DAILY 30 Days Qty: 30 1RF Continued ibuprofen 200 mg capsule 800 mg PO TID PRN (Reason: Mild Pain (Scale Score 1-4)) carbamazepine [Tegretol] 200 mg tablet 400 mg PO BID topiramate 25 mg tablet 25 mg PO BID gabapentin 800 mg tablet 800 mg PO TID hydrocodone-acetaminophen 5-325 mg tablet 1 tab PO TID PRN (Reason: Moderate Pain (Scale Score 5-6)) Changed fluoxetine 40 mg capsule 80 mg PO DAILY 30 Days Qty: 60 1RF Discharge Order = DC NOW: Discharge Order (Routine); Ordered 10/26/24 Ordered By: Del Alonzo Referrals: Michelle E Huerta, SHOPPER'S AIDE [Other] [facility]- Racheal Watts, AEROPHYSICS ENGINEER, SHOPPER'S AIDE [Other] [facility] [Outside] Discharge Diet: Usual diet Discharge Activity: Resume usual activity Patient Instructions: Aripiprazole (By mouth), Depression (DC), PTSD (Post Traumatic Stress Disorder) (DC), Anxiety (DC), Suicide Prevention (DC), Opioid Safety, Patient Portal & Pk Instructions Discharge Attestations NPU Time Spent in Discharge Care*: less than 30 min Specific Discharge Activities: Specific discharge activities: educating patient, discussing with nurse case manager/social workers/dc planners and documenting/other paperwork Coding Level of Care Code Acute Code for [facility] Fwd Diagnoses Generalized anxiety disorder with panic attacks F41.1; F41.0 Borderline personality disorder F60.3 Major depressive disorder, recurrent severe without psychotic features F33.2 Post-traumatic stress disorder, chronic F43.12 Suicidal ideation R45.855
[2024-10-26 15:49] VITALS: BP 157/86; PULSE 107; RESP 16; TEMP 37.1; O2SAT 100
== END 2024-10-26 17:26 | disposition home or self-care (01) | DRG 885 ==
LOC: ER 21:38 → NP 22:13
PROVIDERS: Admitting Provider Psychiatry & Neurology Psychiatry; Emergency Provider Emergency Medicine; Visit Provider Psychiatry & Neurology Psychiatry
DX: F33.2 Major depressive disorder, recurrent severe without psychotic features (principal); R45.851 Suicidal ideations; F43.12 Post-traumatic stress disorder, chronic; F41.1 Generalized anxiety disorder; F41.0 Panic disorder [episodic paroxysmal anxiety]; F60.3 Borderline personality disorder; F12.90 Cannabis use, unspecified, uncomplicated; E66.9 Obesity, unspecified; Z68.34 Body mass index [BMI] 34.0-34.9, adult; F17.210 Nicotine dependence, cigarettes, uncomplicated; Z63.4 Disappearance and death of family member; Z91.51 Personal history of suicidal behavior; Z81.8 Family history of other mental and behavioral disorders
CPT/HCPCS: 36415; 80053; 80306; 80307; 81025; 85025; 93005; 97150; 97165; 99285; J9999